=== PATIENT | female | born 1990 | race Two or more races ===

== ENCOUNTER 2020-02-26 11:09 | Outpatient (REF) | payer MEDICAID, SELFPAY | END 2020-02-26 11:10 | disposition home or self-care (01) | LOC: HO.LAB 11:09 | PROVIDERS: PCP Internal Medicine; Visit Provider Internal Medicine | DX: Z20.828 Contact with and (suspected) exposure to other viral communicable diseases (principal) | CPT/HCPCS: 87635 ==

== ENCOUNTER 2020-03-19 08:54 | Outpatient (REF) | payer MEDICAID, SELFPAY | END 2020-03-19 08:55 | disposition home or self-care (01) | LOC: HO.LAB 08:54 | PROVIDERS: Visit Provider Internal Medicine | DX: Z20.828 Contact with and (suspected) exposure to other viral communicable diseases (principal) | CPT/HCPCS: C9803; U0003 ==

== ENCOUNTER 2020-06-05 10:27 | Outpatient (REF) | payer MEDICAID, SELFPAY | END 2020-06-05 10:28 | disposition home or self-care (01) | LOC: HO.LAB 10:27 | PROVIDERS: PCP Internal Medicine; Visit Provider Internal Medicine | DX: Z20.822 Contact with and (suspected) exposure to COVID-19 (principal) | CPT/HCPCS: 36415; C9803; U0003 ==

== ENCOUNTER 2020-06-09 09:17 | Outpatient (REF) | payer MEDICAID, SELFPAY | END 2020-06-09 09:18 | disposition home or self-care (01) | LOC: HO.LAB 09:17 | PROVIDERS: PCP Internal Medicine; Visit Provider Internal Medicine | DX: Z20.822 Contact with and (suspected) exposure to COVID-19 (principal) | CPT/HCPCS: 36415; C9803; U0003; U0005 ==

== ENCOUNTER 2020-08-18 11:55 | Outpatient (REF) | payer MEDICAID, SELFPAY ==
[2020-08-18 13:00] LABS: COVID-19 Test Negative (Negative)
== END 2020-08-18 11:56 | disposition home or self-care (01) ==
LOC: HO.LAB 11:55
PROVIDERS: Visit Provider Internal Medicine
DX: Z20.822 Contact with and (suspected) exposure to COVID-19 (principal)
CPT/HCPCS: 36415; 87635; C9803

== ENCOUNTER 2020-08-21 13:34 | Outpatient (REF) | payer MEDICAID, SELFPAY | END 2020-08-21 13:35 | disposition home or self-care (01) | LOC: HO.LAB 13:34 | PROVIDERS: Visit Provider Internal Medicine | DX: Z20.822 Contact with and (suspected) exposure to COVID-19 (principal) | CPT/HCPCS: C9803; U0003; U0005 ==

== ENCOUNTER 2020-08-27 08:01 | Outpatient (REF) | payer MEDICAID, SELFPAY ==
[2020-08-27 08:20] LABS: COVID-19 Test Negative (Negative)
== END 2020-08-27 08:02 | disposition home or self-care (01) ==
LOC: HO.LAB 08:01
PROVIDERS: Visit Provider Internal Medicine
DX: Z20.822 Contact with and (suspected) exposure to COVID-19 (principal)
CPT/HCPCS: 36415; 87635; C9803

== ENCOUNTER 2020-09-18 08:13 | Outpatient (REF) | payer MEDICAID, SELFPAY ==
[2020-09-18 13:59] LABS: CT PCR NOT DETECTED (Not Detect.); NG PCR NOT DETECTED (Not Detect.)
[2020-09-24 07:32] LABS: HPV 16 RNA NOT DETECTED (NOT DETECTED); HPV mRNA E6/E7 rflx Detected (Not Detected)
== END 2020-09-18 08:14 | disposition home or self-care (01) ==
LOC: HO.LAB 08:13
PROVIDERS: PCP Internal Medicine; Visit Provider Advanced Practice Midwife
DX: Z01.419 Encounter for gynecological examination (general) (routine) without abnormal findings (principal); Z11.51 Encounter for screening for human papillomavirus (HPV); N94.3 Premenstrual tension syndrome; Z20.2 Contact with and (suspected) exposure to infections with a predominantly sexual mode of transmission; Z80.3 Family history of malignant neoplasm of breast
CPT/HCPCS: 87491; 87591; 87624; 87625; 88142

== ENCOUNTER 2020-10-21 03:57 | Emergency (ER) | payer MEDICAID, SELFPAY ==
--- NOTE | ~2020-10-21 | XR_ITS ---
EXAMINATION: XR CHEST CLINICAL INFORMATION: Lump in left clavicular area. COMPARISON: None TECHNIQUE: Frontal view of the chest was obtained. FINDINGS: No significant abnormality is noted involving the heart, lungs, mediastinum, bony thorax or soft tissues. XR/XR chest 1V IMPRESSION: Unremarkable examination.
[2020-10-21 05:46] VITALS: BP 133/60; PULSE 60; RESP 16; TEMP 36.2; O2SAT 99; BMI 34.3
--- NOTE | 2020-10-21 06:13 | ED_ITS ---
HPI - General Adult General Chief complaint: General Medical Stated complaint: lump on left side of neck Time Seen by Provider: 10/21/20 06:12 Source: patient Mode of arrival: ambulatory Limitations: no limitations History of Present Illness HPI narrative: Patient comes emergency room complaining of a supraclavicular lymph node. Patient states she has had her 2nd COVID vaccine yesterday. Patient noticed at 03:00 that she had a painful noted above her left clavicle. Patient denies fever chills. Patient took ibuprofen yesterday at 17:00. Related Data Home Medications Medication Instructions Recorded Confirmed omeprazole 20 mg tablet,delayed 20 mg PO DAILY 09/18/20 release Previous Rx's Medication Instructions Recorded ibuprofen 600 mg PO Q6H PRN #14 tab 10/21/20 Allergies Allergy/AdvReac Type Severity Reaction Status Date / Time No Known Allergies Allergy Unverified 01/23/20 17:58 seasonal allergies Allergy Unknown Uncoded 01/03/20 00:00 Review of Systems Review of Systems: Constitutional : No Weight loss, No Fever, No Chills, No Night Sweats, No Fatigue, No Malaise ENT/Mouth : No Hearing loss, No Ear Pain, No Nasal Congestion, No Sinus Pain, No Hoarseness, No sore throat, No Rhinorrhea, No Swallowing Difficulty Eyes: No Eye Pain, No Swelling, No Redness, No Foreign Body, No Discharge, No Vision Changes Cardiovascular : No Chest Pain, No SOB, No Dyspnea on Exertion, No Orthopnea, No Edema, No Palpitations Respiratory : No Cough, No Sputum, No Wheezing, No Smoke Exposure, No Dyspnea Gastrointestinal : No Nausea, No Vomiting, No Diarrhea, No Constipation, No abdominal Pain, No Hematochezia, No Melena Genitourinary : no irregular bleeding, No Dysuria, No Urinary Frequency, No Hematuria, No Urinary Incontinence, No Urgency, No Flank Pain, No Urinary Flow Changes, No Hesitancy Musculoskeletal : No joint pain, No Myalgias, No Joint Swelling Skin : No Skin Lesions, No rash Neuro : No Weakness, No Numbness, No Paresthesias, No Loss of Consciousness, No Dizziness, No Headache Psych : No Anxiety/Panic, No Depression, No SI/HI/AH/VH, No Social Issues, Heme/Lymph: No Bruising, No Bleeding, supraclavicular lymphadenopathy on the left side Endocrine : No Polyuria, No Polydipsia, No Temperature Intolerance [facility] Past Medical History Medical History Acid reflux Anxiety Asthma Depression Family History Family History Mother Breast cancer Maternal Aunt Breast cancer Maternal Grandmother Breast cancer Social History Social History Alcohol intake: current Alcohol intake frequency: holidays/special occasions only Substance Use Type: Marijuana Advance Directives: No Advance Directives Information Provided: No Patient : No Gender identity: female Physical Exam Vital Signs: Vital Signs: Last Vital Signs Temp 97.2 F 10/21/20 05:46 Pulse 60 10/21/20 05:46 Resp 16 10/21/20 05:46 BP 133/60 10/21/20 05:46 Pulse Ox 99 10/21/20 05:46 Body Mass Index 34.3 Appearance: Alert. Oriented X3. No acute distress. Eyes: Pupils equal, round and reactive to light. ENT: Pharynx normal. Palpable lymph nodes in the left supraclavicular area, painful to touch, movable Neck: Normal inspection. Neck supple. No lymph nodes noted. No crepitus CVS: Normal heart rate and rhythm. Pulses normal. Normal S1 and S2 Respiratory: No respiratory distress. Breath sounds normal. No Wheezing. No rales . Abdomen: Soft and nontender. No rigidity. No distention. good BS x4 Skin: Skin warm and dry. Normal skin color. Normal skin turgor. Extremities: No lower extremity edema. No lower extremity edema. No Lacerations. No Rash Neuro: Oriented X 3. No motor deficit. No sensory deficit. Moving all ext ermities. No slurred speech. Course Course Course Narrative: Patient developed left supraclavicular lymph node swelling after her immunization, likely secondary to the COVID shot. Patient given ibuprofen. Chest x-ray within normal limits Medical Decision Making Imaging Data Chest x-ray: Radiologist's impression: No significant abnormality is noted involving the heart, lungs, mediastinum, bony thorax or soft tissues. XR/XR chest 1V IMPRESSION: Unremarkable examination. Discharge Plan Discharge Clinical Impression: Lymphadenopathy, supraclavicular Patient Disposition: Home, Self-Care Instructions: Lymphadenopathy (ED) Additional Instructions: Please follow-up with your primary care physician tomorrow. If you have any worsening or new symptoms, please return to the emergency room or call 911 Prescriptions: New ibuprofen 600 mg tablet 600 mg PO Q6H PRN (Reason: fever or pain) Qty: 14 RF: 0 No Action omeprazole 20 mg tablet,delayed release (DR/EC) 20 mg PO DAILY RF: 0
[2020-10-21] MEDS: Ibuprofen 600 MG TABLET PO (06:37)
--- NOTE | 2020-10-21 06:38 | PC.NURSE ---
Pt medicated per MAR, resting in bed at this time.
--- NOTE | 2020-10-21 07:21 | PC.NURSE ---
discharge instruction given to pt who verbalized understanding and denies any questions. pt is amb to exit in no distress
== END 2020-10-21 07:22 | disposition home or self-care (01) ==
PROVIDERS: Emergency Provider Emergency Medicine; PCP Internal Medicine
DX: R59.0 Localized enlarged lymph nodes (principal)
CPT/HCPCS: 71045; 99283

== ENCOUNTER 2020-11-17 22:53 | Emergency (ER) | payer MEDICAID, SELFPAY ==
--- NOTE | ~2020-11-17 | CT_ITS ---
EXAMINATION: CT ABDOMEN AND PELVIS WITH CONTRAST CLINICAL INFORMATION: Left upper and lower quadrant pain COMPARISON: 12/30/2009 TECHNIQUE: Multidetector volumetric images were obtained from the superior aspect of the liver through the pubic symphysis following administration 85 mL of Omnipaque 350 intravenous contrast. Sagittal and coronal reformatted images were obtained on the technologist's workstation. Oral contrast: No This CT examination was performed using dose optimization techniques as appropriate, variously including the following: *Automated exposure control *Adjustment of mA and/or kV according to patient size (this includes techniques or standardized protocols for targeted exams where dose is matched to indication/reason for exam; i.e. extremities or head) *Use of iterative reconstruction technique DLP: 779 mGy-cm FINDINGS: LUNG BASES: The visualized lung bases are unremarkable. LIVER, GALLBLADDER, AND BILIARY TREE: The liver is normal in size, shape, and attenuation. No focal hepatic lesion or biliary ductal dilatation is present. Soft tissue density is noted within the gallbladder lumen. PANCREAS: Unremarkable. SPLEEN: Unremarkable. ADRENAL GLANDS: Unremarkable. KIDNEYS AND URETERS: There is a proximal left ureteral calculus measuring 5 mm with mild to moderate hydronephrosis and a delayed nephrogram. Additional mid and lower pole left renal calculi are noted measuring up to 3 mm. No right-sided hydronephrosis or obstructing calculus. BLADDER: Minimally distended and grossly unremarkable. GASTROINTESTINAL TRACT: The small and large bowel are unremarkable. The appendix is unremarkable. No free air is seen. ABDOMINAL WALL: No significant hernia is appreciated. LYMPH NODES: Normal. VASCULAR: Unremarkable. PELVIC VISCERA: Unremarkable. Trace free fluid is noted. OSSEOUS STRUCTURES: Unremarkable. CT/CT abdomen pelvis w con IMPRESSION: 1. Proximal left ureteral calculus measuring 5 mm with mild to moderate hydronephrosis. 2. Additional left renal calculi measuring up to 3 mm. 3. Soft tissue density in the gallbladder lumen, which could reflect gallstone versus polyp/mass. Further assessment with ultrasound is recommended. 4. Trace nonspecific pelvic free fluid, which may be physiologic.
[2020-11-17 22:56] VITALS: BP 131/76; PULSE 86; RESP 18; TEMP 37.1; O2SAT 98; BMI 33.9
[2020-11-17 23:23] LABS: UPreg QC Valid YES; Urine Pregnancy NEGATIVE (NEGATIVE)
[2020-11-17 23:24] LABS: Appearance Urine CLEAR; Color Urine YELLOW; Glucose Urine UA NEG (NEG); Leukocyte Esterase Urine 1+ (NEG); Nitrite Urine NEG (NEG); Specific Gravity - Urine 1.025 (1.005-1.025); UACC Culture Trigger YES; Urine Blood TRACE (NEG); Urine Ketones 15 MG/DL (NEG); Urine Protein NEG (NEG-TRACE)
[2020-11-17 23:34] LABS: Bacteria Urine 2+ /LPF; Squamous Epithelial Cell Urine 3+ /LPF
--- NOTE | 2020-11-18 01:18 | ED_ITS ---
HPI - Abdominal Pain General Chief Complaint: Abdominal Pain Stated Complaint: abd pain, vomitting Time Seen by Provider: 11/18/20 01:04 Source: patient Mode of arrival: ambulatory Limitations: no limitations History of Present Illness HPI narrative: Patient comes emergency room complaining of left-sided abdominal pain both upper and lower quadrant. Patient complaining of nausea and vomiting, no diarrhea. Patient has history of gastritis but states the pain that she is feeling at this moment is very different. Patient denies fever chills Related Data Home Medications Medication Instructions Recorded Confirmed omeprazole 20 mg tablet,delayed 20 mg PO DAILY 09/18/20 release Previous Rx's Medication Instructions Recorded ibuprofen 600 mg PO Q6H PRN #14 tab 10/21/20 ketorolac 10 mg PO TID PRN 5 Days #10 tab 11/18/20 levofloxacin 500 mg PO DAILY #9 tab 11/18/20 ondansetron HCl [Zofran] 4 mg PO Q6H PRN #14 tab 11/18/20 prednisone 20 mg PO DAILY #5 tab 11/18/20 tamsulosin 0.4 mg PO DAILY #10 cap 11/18/20 Allergies Allergy/AdvReac Type Severity Reaction Status Date / Time No Known Allergies Allergy Unverified 01/23/20 17:58 seasonal allergies Allergy Unknown Uncoded 01/03/20 00:00 Review of Systems Review of Systems Constitutional : No Weight loss, No Fever, No Chills, No Night Sweats, No Fatigue, No Malaise ENT/Mouth : No Hearing loss, No Ear Pain, No Nasal Congestion, No Sinus Pain, No Hoarseness, No sore throat, No Rhinorrhea, No Swallowing Difficulty Eyes: No Eye Pain, No Swelling, No Redness, No Foreign Body, No Discharge, No Vision Changes Cardiovascular : No Chest Pain, No SOB, No Dyspnea on Exertion, No Orthopnea, No Edema, No Palpitations Respiratory : No Cough, No Sputum, No Wheezing, No Smoke Exposure, No Dyspnea Gastrointestinal : Complaining of nausea and vomiting, No Diarrhea, No Constipation, complaining left abdominal pain upper and lower quadrants, No Hematochezia, No Melena Genitourinary : no irregular bleeding, No Dysuria, No Urinary Frequency, No Hematuria, No Urinary Incontinence, No Urgency, No Flank Pain, No Urinary Flow Changes, No Hesitancy Musculoskeletal : No joint pain, No Myalgias, No Joint Swelling Skin : No Skin Lesions, No rash Neuro : No Weakness, No Numbness, No Paresthesias, No Loss of Consciousness, No Dizziness, No Headache Psych : No Anxiety/Panic, No Depression, No SI/HI/AH/VH, No Social Issues, Heme/Lymph: No Bruising, No Bleeding,No Lymphadenopathy Endocrine : No Polyuria, No Polydipsia, No Temperature Intolerance Physical Exam Vital Signs: Vital Signs: Last Vital Signs Temp 98.7 F 11/17/20 22:56 Pulse 63 11/18/20 02:40 Resp 18 11/18/20 02:40 BP 130/78 11/18/20 02:40 Pulse Ox 98 11/18/20 02:40 Body Mass Index 33.9 Appearance: Alert. Oriented X3. No acute distress. Eyes: Pupils equal, round and reactive to light. ENT: Pharynx normal. Neck: Normal inspection. Neck supple. No lymph nodes noted. No crepitus CVS: Normal heart rate and rhythm. Pulses normal. Normal S1 and S2 Respiratory: No respiratory distress. Breath sounds normal. No Wheezing. No rales Abdomen: Soft , tender to palpation in the left lower quadrant, mild pain/discomfort in the right and left upper quadrant, No rigidity. No distention. Skin: Skin warm and dry. Normal skin color. Normal skin turgor. Extremities: No lower extremity edema. No Lacerations. No Rash Neuro: Oriented X 3. No motor deficit. No sensory deficit. Moving all exter mities. No slurred speech. Course Course Course Narrative: Patient is still complaining of significant pain and nausea. Patient has ureterolithiasis. Patient received initially morphine, did not help much for pain, patient received a dose of Toradol which resolve the pain. I discussed with the patient that she needs to follow up with Urology. One dose of IV levofloxacin was given in the emergency room due to p.o. intolerance. At this time, patient drinking fluids, tolerating p.o. as mentioned above, the pain resolved At this time, sepsis is not suspected. MDM - Abdominal Pain Lab Data Result diagrams: 11/18/20 01:25 11/18/20 01:25 Labs: Lab Results 11/17/20 11/17/20 11/18/20 Range/Units 23:08 23:08 01:25 WBC 13.5 H (4.8-10.8) X10*3/uL RBC 4.49 (4.20-5.50) X10*6/uL Hgb 13.2 (12.0-16.0) g/dl Hct 39.3 (37-47) % MCV 87.5 (80-98) fL MCH 29.4 (27.0-33.0) pg MCHC 33.6 (31.0-35.0) g/dl RDW 13.1 (11.0-16.0) % Plt Count 227 (160-400) X10*3/uL MPV 10.5 (9.4-12.3) fL Immature Gran % (Auto) 0.3 (0.0-0.4) % Neut % (Auto) 76.3 H (45-73) % Lymph % (Auto) 15.7 L (20-40) % Mccormick % (Auto) 6.2 (2-11) % Eos % (Auto) 1.3 (0-4) % Baso % (Auto) 0.2 (0-2) % Lymph # (Auto) 2.1 (1.2-4.9) X10*3/uL Mccormick # (Auto) 0.8 (0.1-1.2) X10*3/uL Eos # (Auto) 0.2 (0.0-0.4) X10*3/uL Baso # (Auto) 0.0 (0.0-0.2) X10*3/uL Abs Immat Gran (auto) 0.04 H (0.00-0.03) X10*3/uL Absolute Neuts (auto) 10.3 H (2.0-8.3) X10*3/uL Absolute Nucleated RBC 0.000 (0.0-0.012) X10*3/uL Nucleated RBC % (auto) 0.0 (0.0-0.2) /100WBC Sodium (135-145) mmol/L Potassium (3.3-5.1) mmol/L Chloride (96-108) mmol/L Carbon Dioxide (22-29) mmol/L Anion Gap (12-20) BUN (9-16) mg/dL Creatinine (0.5-1.4) mg/dL Estim Creat Clear Calc Estimated GFR Random Glucose (60-115) mg/dL Calcium (8.4-10.2) mg/dL Total Bilirubin (0.0-1.0) mg/dL Direct Bilirubin (0.0-0.5) mg/dL AST (5-31) U/L ALT (0-31) U/L Alkaline Phosphatase (39-117) U/L Total Protein (6.5-8.0) g/dL Albumin (3.5-5.0) g/dL Lipase (8-78) U/L Urine Color YELLOW Urine Appearance CLEAR Urine pH 6.0 (5.0-8.0) Ur Specific [place] 1.025 (1.005-1.025) Urine Protein NEG (NEG-TRACE) MG/DL Urine Glucose (UA) NEG (NEG) MG/DL Urine Ketones 15 (NEG) MG/DL Urine Blood TRACE (NEG) Urine Nitrite NEG (NEG) Ur Leukocyte Esterase 1+ H (NEG) Urine RBC 1-4 (0) /HPF Urine WBC 5-9 H (0-4) /HPF Ur Squamous Epith Cells 3+ /LPF Urine Bacteria 2+ /LPF Urine Test NEGATIVE (NEGATIVE) 11/18/20 Range/Units 01:25 WBC (4.8-10.8) X10*3/uL RBC (4.20-5.50) X10*6/uL Hgb (12.0-16.0) g/dl Hct (37-47) % MCV (80-98) fL MCH (27.0-33.0) pg MCHC (31.0-35.0) g/dl RDW (11.0-16.0) % Plt Count (160-400) X10*3/uL MPV (9.4-12.3) fL Immature Gran % (Auto) (0.0-0.4) % Neut % (Auto) (45-73) % Lymph % (Auto) (20-40) % Mccormick % (Auto) (2-11) % Eos % (Auto) (0-4) % Baso % (Auto) (0-2) % Lymph # (Auto) (1.2-4.9) X10*3/uL Mccormick # (Auto) (0.1-1.2) X10*3/uL Eos # (Auto) (0.0-0.4) X10*3/uL Baso # (Auto) (0.0-0.2) X10*3/uL Abs Immat Gran (auto) (0.00-0.03) X10*3/uL Absolute Neuts (auto) (2.0-8.3) X10*3/uL Absolute Nucleated RBC (0.0-0.012) X10*3/uL Nucleated RBC % (auto) (0.0-0.2) /100WBC Sodium 137 (135-145) mmol/L Potassium 4.0 (3.3-5.1) mmol/L Chloride 105 (96-108) mmol/L Carbon Dioxide 24 (22-29) mmol/L Anion Gap 12 (12-20) BUN 12 (9-16) mg/dL Creatinine 1.13 (0.5-1.4) mg/dL Estim Creat Clear Calc 86.2 Estimated GFR 57 Random Glucose 109 (60-115) mg/dL Calcium 9.4 (8.4-10.2) mg/dL Total Bilirubin 1.1 H (0.0-1.0) mg/dL Direct Bilirubin 0.4 (0.0-0.5) mg/dL AST 16 (5-31) U/L ALT 12 (0-31) U/L Alkaline Phosphatase 86 (39-117) U/L Total Protein 6.9 (6.5-8.0) g/dL Albumin 4.4 (3.5-5.0) g/dL Lipase 15 (8-78) U/L Urine Color Urine Appearance Urine pH (5.0-8.0) Ur Specific [place] (1.005-1.025) Urine Protein (NEG-TRACE) MG/DL Urine Glucose (UA) (NEG) MG/DL Urine Ketones (NEG) MG/DL Urine Blood (NEG) Urine Nitrite (NEG) Ur Leukocyte Esterase (NEG) Urine RBC (0) /HPF Urine WBC (0-4) /HPF Ur Squamous Epith Cells /LPF Urine Bacteria /LPF Urine Test (NEGATIVE) Imaging Data CT scan - abdomen: Radiologist's impression: [address] [id number] Scan ReportSigned Patient: Linda HammerMR#: [id number]: [id number]:[id number]/Sex: 30 / FADM Date: 11/18/20Loc: [address] Dr: Ordering Physician: SHAGUFTA VELEZ MD Date of Service: 11/18/20 Procedure(s): CT abdomen pelvis w con Accession Number(s): [id number] cc: SHAGUFTA VELEZ MD~ EXAMINATION: CT ABDOMEN AND PELVIS WITH CONTRAST CLINICAL INFORMATION: Left upper and lower quadrant pain COMPARISON: 12/30/2009 TECHNIQUE: Multidetector volumetric images were obtained from the superior aspect of the liver through the pubic symphysis following administration 85 mL of Omnipaque 350 intravenous contrast. Sagittal and coronal reformatted images were obtained on the technologist's workstation. Oral contrast: No This CT examination was performed using dose optimization techniques as appropriate, variously including the following: *Automated exposure control *Adjustment of mA and/or kV according to patient size (this includes techniques or standardized protocols for targeted exams where dose is matched to indication/reason for exam; i.e. extremities or head) *Use of iterative reconstruction technique DLP: 779 mGy-cm FINDINGS: LUNG BASES: The visualized lung bases are unremarkable. LIVER, GALLBLADDER, AND BILIARY TREE: The liver is normal in size, shape, and attenuation. No focal hepatic lesion or biliary ductal dilatation is present. Soft tissue density is noted within the gallbladder lumen. PANCREAS: Unremarkable. SPLEEN: Unremarkable. ADRENAL GLANDS: Unremarkable. KIDNEYS AND URETERS: There is a proximal left ureteral calculus measuring 5 mm with mild to moderate hydronephrosis and a delayed nephrogram. Additional mid and lower pole left renal calculi are noted measuring up to 3 mm. No right-sided hydronephrosis or obstructing calculus. BLADDER: Minimally distended and grossly unremarkable. GASTROINTESTINAL TRACT: The small and large bowel are unremarkable. The appendix is unremarkable. No free air is seen. ABDOMINAL WALL: No significant hernia is appreciated. LYMPH NODES: Normal. VASCULAR: Unremarkable. PELVIC VISCERA: Unremarkable. Trace free fluid is noted. OSSEOUS STRUCTURES: Unremarkable. CT/CT abdomen pelvis w con IMPRESSION: 1. Proximal left ureteral calculus measuring 5 mm with mild to moderate hydronephrosis. 2. Additional left renal calculi measuring up to 3 mm. 3. Soft tissue density in the gallbladder lumen, which could reflect gallstone versus polyp/mass. Further assessment with ultrasound is recommended. 4. Trace nonspecific pelvic free fluid, which may be physiologic. Discharge Plan Discharge Clinical Impression: Ureterolithiasis UTI (urinary tract infection) Qualifiers: Urinary tract infection type: site unspecified Hematuria presence: without hematuria Qualified Code(s): N39.0 - Urinary tract infection, site not specified Patient Disposition: Home, Self-Care Instructions: Urinary Tract Infection in Women (ED), Flank Pain (ED) Additional Instructions: Please follow-up with your primary care physician tomorrow. If you have any worsening or new symptoms, please return to the emergency room or call 911 Prescriptions: New prednisone 20 mg tablet 20 mg PO DAILY Qty: 5 RF: 0 ketorolac 10 mg tablet 10 mg PO TID PRN (Reason: pain) 5 Days Qty: 10 RF: 0 ondansetron HCl [Zofran] 4 mg tablet 4 mg PO Q6H PRN (Reason: nausea and vomiting) Qty: 14 RF: 0 tamsulosin 0.4 mg capsule 0.4 mg PO DAILY Qty: 10 RF: 0 levofloxacin 500 mg tablet 500 mg PO DAILY Qty: 9 RF: 0 No Action ibuprofen 600 mg tablet 600 mg PO Q6H PRN (Reason: fever or pain) Qty: 14 RF: 0 omeprazole 20 mg tablet,delayed release (DR/EC) 20 mg PO DAILY RF: 0 Referrals: Flako Elias MD [Physician] - 2 days [facility] Past Medical History Medical History Acid reflux Anxiety Asthma Depression Family History Family History Mother Breast cancer Maternal Aunt Breast cancer Maternal Grandmother Breast cancer Social History Social History Alcohol intake: current Alcohol intake frequency: holidays/special occasions only Substance Use Type: Marijuana Advance Directives: No Patient : No Gender identity: female
[2020-11-18] MEDS: ondansetron HCL 4 MG/2 ML VIAL IVPUSH ×2 (01:26→03:20)
[2020-11-18] MEDS: Morphine Sulfate 4 MG/ML CARTRIDGE IVPUSH (01:26)
[2020-11-18] MEDS: 0.9 % Sodium Chloride 1,000 ML 999 ML IVCONT (01:26)
[2020-11-18 01:29] LABS: MANUAL DIFF FLAG NO
[2020-11-18 01:34] LABS: Basophils Percent Auto 0.2 % (0-2); Eosinophils Absolute Auto 0.2 X10*3/uL (0.0-0.4); Eosinophils Percent Auto 1.3 % (0-4); Hematocrit 39.3 % (37-47); Hemoglobin 13.2 g/dl (12.0-16.0); Imm Gran Abs Auto 0.04 X10*3/uL (0.00-0.03); Imm Gran Pct Auto 0.3 % (0.0-0.4); Lymphocytes Absolute Auto 2.1 X10*3/uL (1.2-4.9); Lymphocytes Percent Auto 15.7 % (20-40); Mean Corpuscular HGB Conc 33.6 g/dl (31.0-35.0); Mean Corpuscular Hemoglobin 29.4 pg (27.0-33.0); Mean Corpuscular Volume 87.5 fL (80-98); Mean Platelet Volume 10.5 fL (9.4-12.3); Monocytes Absolute Auto 0.8 X10*3/uL (0.1-1.2); Monocytes Percent Auto 6.2 % (2-11); Neutrophils Absolute Auto 10.3 X10*3/uL (2.0-8.3); Neutrophils Percent Auto 76.3 % (45-73); Platelet Count 227 X10*3/uL (160-400); Red Blood Count 4.49 X10*6/uL (4.20-5.50); Red Cell Distribution Width 13.1 % (11.0-16.0); White Blood Count 13.5 X10*3/uL (4.8-10.8)
[2020-11-18 01:52] LABS: Alanine Aminotransferase 12 U/L (0-31); Albumin Level 4.4 g/dL (3.5-5.0); Alkaline Phosphatase 86 U/L (39-117); Anion Gap 12 (12-20); Aspartate Amino Transferase 16 U/L (5-31); Bilirubin Direct 0.4 mg/dL (0.0-0.5); Bilirubin Total 1.1 mg/dL (0.0-1.0); Blood Urea Nitrogen 12 mg/dL (9-16); Calcium 9.4 mg/dL (8.4-10.2); Carbon Dioxide 24 mmol/L (22-29); Chloride 105 mmol/L (96-108); Creatinine Clr Calc Pharmacy 86.2; Estimated Glomerular Filt Rate 57; Glucose Random 109 mg/dL (60-115); Lipase 15 U/L (8-78); Sodium 137 mmol/L (135-145); Total Protein 6.9 g/dL (6.5-8.0)
[2020-11-18 02:31] VITALS: RESP 16
[2020-11-18 02:40] VITALS: BP 130/78; PULSE 63; RESP 18; O2SAT 98
[2020-11-18] MEDS: iohexoL 350 MG/ML 100 ML INFUS..BTL 85 ML IV (03:03)
[2020-11-18] MEDS: Ketorolac Tromethamine 30 MG/ML VIAL IVPUSH (04:07)
[2020-11-18] MEDS: Prochlorperazine Edisylate 10 MG/2 ML VIAL IVPUSH (04:09)
[2020-11-18] MEDS: Tamsulosin HCL 0.4 MG CAPSULE PO (04:13)
[2020-11-18] MEDS: levoFLOXacin/D5W 500 MG/100 ML PIGGYBACK 100 MG IV (04:38)
[2020-11-18 05:46] VITALS: RESP 16
== END 2020-11-18 05:48 | disposition home or self-care (01) ==
PROVIDERS: Emergency Provider Emergency Medicine; PCP Internal Medicine
DX: N20.1 Calculus of ureter (principal); N39.0 Urinary tract infection, site not specified; R10.32 Left lower quadrant pain; F12.90 Cannabis use, unspecified, uncomplicated; Z79.899 Other long term (current) drug therapy
CPT/HCPCS: 36415; 74177; 80048; 80076; 81001; 81003; 81025; 83690; 85025; 87086; 96365; 96375; 96376; 99284; J1885; J1956; J2270; J2405; Q9967

== ENCOUNTER → 2020-11-20 11:38 | Outpatient (BNVA) | payer MEDICAID, SELFPAY | PROVIDERS: PCP Internal Medicine ==

== ENCOUNTER → 2020-12-04 14:20 | Outpatient (BNVA) | payer MEDICAID, SELFPAY | PROVIDERS: PCP Internal Medicine | DX: N20.0 Calculus of kidney (principal) | CPT/HCPCS: 99212 ==

== ENCOUNTER → 2020-12-09 07:36 | Outpatient (BNVA) | payer MEDICAID, SELFPAY | PROVIDERS: PCP Internal Medicine; Visit Provider Physician Assistant ==

== ENCOUNTER 2020-12-24 16:22 | Outpatient (REF) | payer MEDICAID, SELFPAY ==
--- NOTE | ~2020-12-24 | US_ITS ---
EXAMINATION: US RETROPERITONEAL LIMITED (RENAL ONLY) CLINICAL INFORMATION: Calculus of kidney. COMPARISON: CT abdomen and pelvis with contrast dated 11/18/2020. TECHNIQUE: Real-time imaging of the kidneys. FINDINGS: RIGHT KIDNEY: 9.9 x 4.0 x 5.2 cm (SAG x AP x TRV). The kidney is normal in size, contour, and echogenicity. Renal cortical thickness is normal. No calculi or focal parenchymal lesions. No hydronephrosis. LEFT KIDNEY: 10.7 x 5.1 x 5.6 cm (SAG x AP x TRV). The kidney is normal in size, contour, and echogenicity. Renal cortical thickness is normal. No calculi or focal parenchymal lesions. No hydronephrosis. US/US renal BI IMPRESSION: No stones or obstructive uropathy..
== END 2020-12-24 16:23 | disposition home or self-care (01) ==
LOC: HO.US 16:22
DX: N20.0 Calculus of kidney (principal)
CPT/HCPCS: 76775

== ENCOUNTER → 2021-01-05 10:44 | Outpatient (BNVA) | payer MEDICAID, SELFPAY | PROVIDERS: PCP Internal Medicine | DX: N20.0 Calculus of kidney (principal); J30.2 Other seasonal allergic rhinitis | CPT/HCPCS: 99212 ==

== ENCOUNTER 2021-01-28 09:17 | Day surgery (SDC) | payer MEDICAID, SELFPAY ==
[2021-01-22 12:38] VITALS: BMI 34.7
--- NOTE | 2021-01-27 10:04 | HO.ANESPROP2 ---
Documented by User: Bri Kasper NP 01/27/21 10:05 HPI - Anesthesia Eval Consult details Narrative: 30yo F for Upper Endoscopy PMFSH Active Problems Active Problems: All Active Problems (Updated 12/09/20 @ 08:09 by Celeste Durbin PA-C) Family history of breast cancer in first degree relative (Acute) Renal calculi (Acute) Acid reflux (Acute) Constipation due to pain medication (Acute) Past Medical History Medical History Acid reflux Anxiety Asthma Depression Family History Family History Mother Breast cancer Maternal Aunt Breast cancer Maternal Grandmother Breast cancer Surgical History Surgical History Hx of hand surgery Social History Social History Household Members Other:: single 1 child Are you a primary resident care supervisor to a significant other at home: No Do you presently have visiting nurse or other home services: No Alcohol intake: current Alcohol intake frequency: holidays/special occasions only Patient Tobacco Use Status: Never used Tobacco Use of substances other than those prescribed or required for medical reasons: Yes Substance Use Type: Marijuana Substance Use Frequency: Weekly Have you been hit, kicked, punched, or otherwise hurt by someone within the past year? If so, by whom?: No Are you DNR?: No Advance Directives: No Advance Directives Information Provided: No Advance Directives on File: No Recently lost weight without trying: No Eating poorly because of decreased appetite: No Nutrition Risks: No Nutritional Risk Patient : No FDLMP: 01/17/21 : No Current occupational status: employed Gender identity: Female Meds Allergies Allergy/AdvReac Type Severity Reaction Status Date / Time No Known Allergies Allergy Verified 01/22/21 12: seasonal allergies Allergy Unknown n/a Uncoded 01/22/21 12:21 Home Medications Medication Instructions Recorded Confirmed Last Taken Type omeprazole 20 mg tablet,delayed 20 mg PO DAILY 09/18/20 01/22/21 Unknown History release hydroxyzine HCl 50 mg tablet 50 mg PO BEDTIME 12/09/20 01/22/21 Unknown History loratadine 10 mg tablet 10 mg PO DAILY PRN 01/05/21 01/22/21 Unknown History mirtazapine 15 mg tablet 15 mg PO BEDTIME 01/05/21 01/22/21 Unknown History pyridoxine (vitamin B6) 100 mg 100 mg PO DAILY 01/05/21 01/22/21 Unknown History tablet albuterol sulfate 90 mcg/actuation 2 puff PO Q4-6H PRN 01/22/21 01/22/21 Unknown History aerosol inhaler (ProAir HFA) clonidine HCl 0.2 mg tablet 1 tab PO BEDTIME 01/22/21 01/22/21 Unknown History duloxetine 60 mg capsule,delayed 1 cap PO DAILY 01/22/21 01/22/21 Unknown History release Exam Exam Date and Time: January 27, 2021 1004 Height,Weight and Vital Signs: Height 5 ft 6 in Weight 97.522 kg Pertinent Lab Results Pertinent Lab Results: Laboratory Tests 11/18/20 11/18/20 01:25 01:25 WBC 13.5 H Hgb 13.2 Hct 39.3 Plt Count 227 Sodium 137 Potassium 4.0 Chloride 105 Carbon Dioxide 24 BUN 12 Creatinine 1.13 Assessment and Plan Assessment Anesthesia Assessment: Chart Reviewed Documented by User: Elba Chapman MD 01/28/21 10:21 [facility] Active Problems Active Problems: All Active Problems (Updated 12/09/20 @ 08:09 by Celeste Durbin PA-C) Family history of breast cancer in first degree relative (Acute) Renal calculi (Acute) Acid reflux (Acute) Constipation due to pain medication (Acute) Asthma. Controlled. Inhalers prn Past Medical History Medical History Acid reflux Anxiety Asthma Depression Family History Family History Mother Breast cancer Maternal Aunt Breast cancer Maternal Grandmother Breast cancer Family history of problems with anesthesia: No Surgical History Surgical History Hx of hand surgery History of Problems with Anesthesia: No Social History Social History Household Members Other:: single 1 child Are you a primary resident care supervisor to a significant other at home: No Do you presently have visiting nurse or other home services: No Alcohol intake: current Alcohol intake frequency: holidays/special occasions only Patient Tobacco Use Status: Never used Tobacco Use of substances other than those prescribed or required for medical reasons: Yes Substance Use Type: Marijuana Substance Use Frequency: Weekly Have you been hit, kicked, punched, or otherwise hurt by someone within the past year? If so, by whom?: No Are you DNR?: No Advance Directives: No Advance Directives Information Provided: No Advance Directives on File: No Recently lost weight without trying: No Eating poorly because of decreased appetite: No Nutrition Risks: No Nutritional Risk Patient : No FDLMP: 01/17/21 : No Current occupational status: employed Gender identity: Female Meds Allergies Allergy/AdvReac Type Severity Reaction Status Date / Time No Known Allergies Allergy Verified 01/22/21 12:21 seasonal allergies Allergy Unknown n/a Uncoded 01/22/21 12:21 Home Medications Medication Instructions Recorded Confirmed Last Taken Type omeprazole 20 mg tablet,delayed 20 mg PO DAILY 09/18/20 01/22/21 Unknown History release hydroxyzine HCl 50 mg tablet 50 mg PO BEDTIME 12/09/20 01/22/21 Unknown History loratadine 10 mg tablet 10 mg PO DAILY PRN 01/05/21 01/22/21 Unknown History mirtazapine 15 mg tablet 15 mg PO BEDTIME 01/05/21 01/22/21 Unknown History pyridoxine (vitamin B6) 100 mg 100 mg PO DAILY 01/05/21 01/22/21 Unknown History tablet albuterol sulfate 90 mcg/actuation 2 puff PO Q4-6H PRN 01/22/21 01/22/21 Unknown History aerosol inhaler (ProAir HFA) clonidine HCl 0.2 mg tablet 1 tab PO BEDTIME 01/22/21 01/22/21 Unknown History duloxetine 60 mg capsule,delayed 1 cap PO DAILY 01/22/21 01/22/21 Unknown History release Exam Height,Weight and Vital Signs: Height 5 ft 6 in Weight 97.522 kg Vital Signs Temp Pulse Resp BP Pulse Ox 01/28/21 09:45 98.3 F 72 16 135/82 97 Pertinent Lab Results Pertinent Lab Results: Laboratory Tests 11/18/20 11/18/20 01:25 01:25 WBC 13.5 H Hgb 13.2 Hct 39.3 Plt Count 227 Sodium 137 Potassium 4.0 Chloride 105 Carbon Dioxide 24 BUN 12 Creatinine 1.13 Lab Results 01/28/21 Range/Units 09:25 Urine Test NEGATIVE (NEGATIVE) Airway Mallampati Class: I TM Dist: >3cm Neck ROM: Full Loose/Missing/Broken Teeth: No Heart: RRR Lungs: CTAB Assessment and Plan Assessment Anesthesia Assessment: Anesthesia Plan Discussed Final Anesthetic Review Family History of Problems with Anesthesia: No History of Problems with Anesthesia: No NPO: Yes ASA Class: II Final Preanesthetic Review: No Changes in Pt Med Stat, Meds/Allgs Chart Reviewed, Consent Obtained/Reviewed and Anes Risks/Benef Reviewed Patient Risk: Low Procedure Risk: Low Assessment/Block/Sedation in SS: Assess/Block/Sedation-SS Anesthetic Plan Anesthetic Plan: MAC: Disposition: Standard PACU
[2021-01-28 09:45] VITALS: BP 135/82; PULSE 72; RESP 16; TEMP 36.8; O2SAT 97
[2021-01-28 09:46] LABS: UPreg QC Valid YES; Urine Pregnancy NEGATIVE (NEGATIVE)
[2021-01-28] MEDS: Lactated Ringers 1,000 ML 100 ML IVCONT (09:50)
--- NOTE | 2021-01-28 10:35 | MHC.SHP ---
Pre-Procedural Eval Section A Date of Service: 01/28/21 Section B Chief Complaint: GERD Relevant Family History (Specify if Yes): No Relevant Social History: Other (specify) (THC use) Present Medications: see Short Stay Collaborative assessment Medical History: Significant History (Acid reflux Anxiety Asthma Depression) History of Previous Operations: Relevant previous surgery/procedure and date(s) (hand surgery) Allergies: Allergies Allergy/AdvReac Type Severity Reaction Status Date / Time No Known Allergies Allergy Verified 01/22/21 12:21 seasonal allergies Allergy Unknown n/a Uncoded 01/22/21 12:21 Review of Systems Sugical H&P ROS: Negative: Constitution, Cardiovascular, Respiratory, Neurological, Psychiatric, Hem-Onc, Allergic/Immunologic, Gastrointestinal, Genitourinary, Musculoskeletal, Integumentary, Endocrine and Eyes/Ears/Nose/Throat Exam Surgical H&P Exam: Normal: HEENT, Normal: Heart, Normal: Lungs, Normal: Extremities, Normal: Abdomen, Normal: Skin and Normal: Neurological Plan Diagnosis/Plan: Unchanged I have reviewed the history and physical and performed a pertinent physical examination on my patient. No changes have occurred unless specified.
--- NOTE | 2021-01-28 10:37 | P.BOP_ITS ---
Brief Operative Note Date of Service: 01/28/21 Pre-op diagnosis: epigastric pain Post-op diagnosis: same Procedure: see op note Surgeon: Beverly Nicole MD Anesthesia: MAC Was an Instructor Product Inspection used for this Procedure?: No Estimated blood loss (mL): 0 Condition: stable Disposition: PACU
--- NOTE | 2021-01-28 10:37 | W.PM.OPN ---
Operative Note Operative Note Date of Service: 01/28/21 Narrative: Procedure Description: EGD FLEXIBLE TRANSORAL UPPER GASTROINTESTINAL ENDOSCOPY UPPER ENDOSCOPY Consent: Indications for the procedure and potential complications of bleeding, perforation, reaction to medications and missed diagnosis were discussed with the patient and informed consent was obtained. Instrument: Olympus GIF H 190 J mid size upper endoscope Monitoring: Vital signs and clinical assessment, continuous EKG monitoring, Pulse oximetry, Carbon Dioxide monitoring and blood pressure monitoring were done throughout the procedure. Procedure: The patient was placed in the left lateral decubitis position and pre-procedure medications were administered and a bite block was placed. The endoscope was inserted into the mouth and advanced under direct vision to the third part of duodenum. A careful inspection was made as the upper endoscope was withdrawn including a retroflexed examination of the proximal stomach; Findings and interventions are described below. Findings: Larynx:normal Esophagus: GE junction at 38 cm, diaphragm hiatus at 40 cm, 2 cm sliding hiatal hernia noted with non obstructive schatzki ring Stomach: Normal mucosa. Biopsies were obtained. Grade 2 flap valve on retroflexed examination of the cardia. Duodenum: Normal bulb and descending duodenum, bx taken Intervention: Biopsies as noted above Impression/Findings: hiatal hernia schatzki ring PLAN: await results, if h pylori pos then treat lifestyle measures for GERD may have functional dyspepsia component to sx as well
[2021-01-28 11:09] VITALS: BP 111/60; PULSE 81; RESP 16; TEMP 36.8; O2SAT 100
[2021-01-28 11:24] VITALS: BP 130/84; PULSE 60; RESP 16; O2SAT 98
[2021-01-28 11:35] VITALS: BP 130/84; PULSE 74; RESP 7; TEMP 36.7; O2SAT 99
== END 2021-01-28 12:03 | disposition home or self-care (01) ==
PROVIDERS: Nurse Practitioner; PCP Internal Medicine; Visit Provider Internal Medicine Gastroenterology
PROC: 0DJ08ZZ Inspection of Upper Intestinal Tract, Via Natural or Artificial Opening Endoscopic (ICD-10-PCS; CPT 43235; principal; 2021-01-28 15:10)
DX: K21.9 Gastro-esophageal reflux disease without esophagitis (principal); K22.2 Esophageal obstruction; K44.9 Diaphragmatic hernia without obstruction or gangrene; Z79.899 Other long term (current) drug therapy
CPT/HCPCS: 43239; 81025; 88305; 88342; J2250

== ENCOUNTER 2021-04-07 08:10 | Outpatient (REF) | payer MEDICAID, SELFPAY ==
[2021-04-07 08:20] LABS: MANUAL DIFF FLAG NO
[2021-04-07 08:37] LABS: Basophils Percent Auto 0.2 % (0-2); Eosinophils Absolute Auto 0.1 X10*3/uL (0.0-0.4); Eosinophils Percent Auto 1.1 % (0-4); Hematocrit 41.8 % (37.0-47.0); Hemoglobin 13.7 g/dl (12.0-16.0); Imm Gran Abs Auto 0.05 X10*3/uL (0.00-0.03); Imm Gran Pct Auto 0.4 % (0.0-0.4); Lymphocytes Percent Auto 16.2 % (20-40); Mean Corpuscular HGB Conc 32.8 g/dl (31.0-35.0); Mean Corpuscular Hemoglobin 29.4 pg (27.0-33.0); Mean Corpuscular Volume 89.7 fL (80.0-98.0); Mean Platelet Volume 10.6 fL (9.4-12.3); Monocytes Absolute Auto 0.6 X10*3/uL (0.1-1.2); Monocytes Percent Auto 4.7 % (2-11); Neutrophils Absolute Auto 9.5 x10*3/uL (2.0-8.3); Neutrophils Percent Auto 77.4 % (45-73); Platelet Count 268 X10*3/uL (160-400); Red Blood Count 4.66 X10*6/uL (4.20-5.50); Red Cell Distribution Width 13.8 % (11.0-16.0); White Blood Count 12.3 X10*3/uL (4.8-10.8)
[2021-04-07 09:02] LABS: Alanine Aminotransferase 18 U/L (0-31); Albumin Level 4.5 g/dL (3.5-5.0); Alkaline Phosphatase 88 U/L (39-117); Anion Gap 10 (12-20); Aspartate Amino Transferase 17 U/L (5-31); Blood Urea Nitrogen 14 mg/dL (9-16); C Reactive Protein 0.87 mg/dL (< or = 0.50); Calcium 9.4 mg/dL (8.4-10.2); Carbon Dioxide 28 mmol/L (22-29); Chloride 108 mmol/L (96-108); Estimated Glomerular Filt Rate > 60; Glucose Random 117 mg/dL (60-115); Potassium 3.8 mmol/L (3.3-5.1); Sodium 142 mmol/L (135-145); Total Protein 7.2 g/dL (6.5-8.0)
[2021-04-07 09:11] LABS: HCG Quantitative < 2 mIU/mL
[2021-04-07 09:21] LABS: Erythrocyte Sedimentation Rate 7 MM/HR (0-20)
[2021-04-07 09:28] LABS: Appearance Urine HAZY; Color Urine YELLOW; Glucose Urine UA NEG (NEG); Leukocyte Esterase Urine 2+ (NEG); Nitrite Urine NEG (NEG); Specific Gravity - Urine 1.025 (1.005-1.025); UACC Culture Trigger YES; Urine Blood TRACE (NEG); Urine Ketones NEG (NEG); Urine Protein 1+ MG/DL (NEG-TRACE)
[2021-04-07 09:50] LABS: RBC Urine 0 /HPF (0); Squamous Epithelial Cell Urine 2+ /LPF
[2021-04-07 09:51] LABS: Bacteria Urine 1+ /LPF; Mucus Urine 1+ /LPF
== END 2021-04-07 08:11 | disposition home or self-care (01) ==
LOC: HO.LAB 08:10
PROVIDERS: Visit Provider Internal Medicine Gastroenterology
DX: R10.11 Right upper quadrant pain (principal); K75.81 Nonalcoholic steatohepatitis (NASH)
CPT/HCPCS: 36415; 80053; 81001; 81003; 84702; 85025; 85652; 86140; 87086

== ENCOUNTER 2021-05-27 09:24 | Outpatient (REF) | payer MEDICAID, SELFPAY ==
--- NOTE | ~2021-05-27 | US_ITS ---
EXAMINATION: US COMPLETE ABDOMEN WITH LIVER ELASTOGRAPHY CLINICAL INFORMATION: Right upper quadrant pain COMPARISON: Previous CT of the abdomen and pelvis November 2020 TECHNIQUE: Real-time imaging of the abdominal viscera. Noninvasive ultrasound liver fibrosis assessment is performed using Ladonna ElastPQ point quantification shear wave elastography (2D-SWE) with a C5-2 MHz transducer. Multiple elastography samples are obtained. FINDINGS: PANCREAS: The visualized pancreatic head and body are normal in appearance. The remainder of the pancreas is obscured from visualization by the overlying bowel gas. ABDOMINAL AORTA: The proximal, middle, and distal aortic segments are normal in caliber. INFERIOR VENA CAVA: Visualized portions are normal. LIVER: Normal. The liver demonstrates normal size, contour and echogenicity. No focal lesion or intrahepatic biliary duct dilatation. The right lobe measures 14 cm in length. The left lobe measures 10 cm in length. Portal flow is normal/hepatopedal Shear wave liver elastography median stiffness is 1.2 m/s (reference: normal median stiffness is 1.3 m/s or less). IQR/median stiffness to assess sampling precision is 0.16 (reference: good quality data set is IQR/median stiffness of 0.15 or less). GALLBLADDER: There is a 2 x 1.2 x 1.3 cm lesion adjacent to the gallbladder wall worrisome for a mass. This demonstrates minimal vascularity. This is not appear appreciably changed in size from previous CT scan November 2020. No gallstones are seen. The gallbladder wall does not appear thickened. COMMON BILE DUCT: Normal in caliber measuring 0.6 cm in diameter. RIGHT KIDNEY: Normal. No hydronephrosis. No renal calculi or focal parenchymal lesions. The kidney measures 9 cm in maximum dimension. LEFT KIDNEY: Normal. No hydronephrosis. No renal calculi or focal parenchymal lesions. The kidney measures 11 cm in maximum dimension. SPLEEN: Normal. The spleen measures 9 cm in maximum dimension. FREE FLUID: None. US/US abdomen comp w elastography IMPRESSION: 1. Impression 2 x 1.2 x 1.3 cm lesion adjacent to the gallbladder wall worrisome for a gallbladder mass. Limited visualization the tail of the pancreas. 2. Liver elastography: Adequate liver sampling. Normal liver stiffness. REFERENCE: Society of Radiologists in Ultrasound Liver Stiffness Thresholds (2020): LIVER STIFFNESS THRESHOLDS: *Liver Stiffness equal or less than 1.3 m/s: High probability of being normal. *Liver Stiffness less than 1.7 m/s: In the absence of other known clinical signs, rules out compensated advanced chronic liver disease. *Liver Stiffness 1.7-2.1 m/s: Suggestive of compensated advanced chronic liver disease but need further test for confirmation. *Liver Stiffness over 2.1 m/s: Rules in compensated advanced chronic liver disease. *Liver Stiffness over 2.4 m/s: Suggestive of clinically significant portal hypertension. QUALITY OF DATA SET: *IQR/Median value equal or less than 0.15 implies a quality data set. *IQR/Median value over 0.15 implies a poor quality data set. SIGNIFICANT CHANGE FROM PRIOR EXAM: Significant change if liver stiffness measurement is 10% or greater from prior exam. OTHER CONSIDERATIONS: The stage of liver fibrosis may be overestimated in the setting of acute hepatitis, liver inflammation, elevated liver function tests, hepatic vascular congestion, obstructive cholestasis, non-fasting state, and infiltrative diseases such as amyloidosis and lymphoma. In some patients with NAFLD, the liver stiffness thresholds for compensated advanced chronic liver disease may be lower. In causes other than viral hepatitis and NAFLD, liver stiffness thresholds are not well established. Findings will be communicated by the [place] work flow nurse first assist.
== END 2021-05-27 09:25 | disposition home or self-care (01) ==
LOC: HO.US 09:24
PROVIDERS: Visit Provider Internal Medicine Gastroenterology
DX: R10.11 Right upper quadrant pain (principal)
CPT/HCPCS: 76705; 76981

== ENCOUNTER 2021-06-04 07:21 | Outpatient (REF) | payer MEDICAID, SELFPAY ==
--- NOTE | ~2021-06-04 | MR_ITS ---
EXAMINATION: MR ABDOMEN WITHOUT AND WITH CONTRAST CLINICAL INFORMATION: Other specified diseases of gallbladder. Rule out gallbladder mass. COMPARISON: Previous CT of the abdomen and pelvis 11/18/2020 and abdominal ultrasound May 2019 TECHNIQUE: MR abdomen was performed without and with use of 10 mL intravenous Gadavist gadolinium contrast. Postcontrast images are performed in multiphase dynamic sequences. Imaging was performed in 3 planes. MRCP sequences were also performed. Exam is limited due to artifact from respiratory motion. FINDINGS: Exam is limited due to motion artifact. LUNG BASES: The visualized lung bases are unremarkable. LIVER, GALLBLADDER, AND BILIARY TREE: The liver is normal in size, smooth in contour, and normal in signal. No focal hepatic lesion or biliary ductal dilatation is present. There is a polypoid lesion adjacent to the right lateral gallbladder wall. This measures 9 x 1.8 x 1.5 cm in transverse, AP and longitudinal dimension. This is intermediate signal on T1-weighted sequences, low signal on T2-weighted sequences and demonstrates evidence of enhancement. Appearance is concerning for a large polyp or mass. The gallbladder is normal in size. The gallbladder wall does not appear thickened. No gallstones are seen. MRCP sequences are limited due to motion artifact. There is no intrahepatic or extrahepatic biliary duct dilatation. PANCREAS: Unremarkable. SPLEEN: Normal. ADRENAL GLANDS: Normal. KIDNEYS AND URETERS: The kidneys are normal in size, shape, and enhance symmetrically. No hydronephrosis. No perinephric stranding. GASTROINTESTINAL TRACT: No bowel obstruction. No ascites or fluid collection. ABDOMINAL WALL: No significant hernia is appreciated. LYMPH NODES: No lymphadenopathy. VASCULAR: Unremarkable. OSSEOUS STRUCTURES: Marrow signal normal. MR/MR abdomen wo/w con IMPRESSION: Limited exam due to artifact from respiratory motion. Irregularly-shaped polypoid 0.9 x 1.8 x 1.5 cm enhancing lesion adjacent to the gallbladder wall worrisome for a gallbladder polyp or mass. No gallstone seen.
== END 2021-06-04 07:22 | disposition home or self-care (01) ==
LOC: HO.MRI 07:21
PROVIDERS: Visit Provider Internal Medicine Gastroenterology
DX: K82.8 Other specified diseases of gallbladder (principal)
CPT/HCPCS: 74183; A9585

== ENCOUNTER → 2021-06-14 15:18 | Outpatient (BNVA) | payer MEDICAID, SELFPAY | PROVIDERS: PCP Internal Medicine; Referring Provider Internal Medicine; Visit Provider Surgery | DX: K82.4 Cholesterolosis of gallbladder (principal) | CPT/HCPCS: 99202 ==

== ENCOUNTER 2021-07-20 09:20 | Day surgery (SDC) | payer MEDICAID, SELFPAY ==
[2021-07-14 12:44] VITALS: BMI 36.9
--- NOTE | 2021-07-19 08:27 | HO.ANESPROP2 ---
Documented by User: Bri Kasper NP 07/19/21 08:28 HPI - Anesthesia Eval Consult details Narrative: 30yo F for Cholecystectomy Laparoscopic, Poss Open PMFSH Active Problems Active Problems: All Active Problems (Updated 07/14/21 @ 12:54 by Ameena Brown RN) Family history of breast cancer in first degree relative (Acute) Renal calculi (Acute) Acid reflux (Acute) Constipation due to pain medication (Acute) RUQ pain (Acute) Gallbladder mass (Acute) Gallbladder polyp (Acute) Past Medical History Medical History (Updated 07/14/21 @ 12:54 by Ameena Brown RN) Acid reflux Anxiety Asthma COVID-19 vaccine series completed Depression Gallbladder polyp Family History Family History Mother Breast cancer Maternal Aunt Breast cancer Maternal Grandmother Breast cancer Family history of problems with anesthesia: No Surgical History Surgical History (Updated 07/14/21 @ 12:57 by Ameena Brown RN) History of esophagogastroduodenoscopy (EGD) Hx of hand surgery History of Problems with Anesthesia: No Social History Social History Household Members Other:: one child Are you a primary care management associate to a significant other at home: No Do you presently have visiting nurse or other home services: No Alcohol intake: current Alcohol intake frequency: holidays/special occasions only Patient Tobacco Use Status: Never used Tobacco Use of substances other than those prescribed or required for medical reasons: Yes Substance Use Type: Marijuana Have you been hit, kicked, punched, or otherwise hurt by someone within the past year? If so, by whom?: No Are you DNR?: No Advance Directives: No Advance Directives Information Provided: Yes (brochure mailed) Advance Directives on File: No Recently lost weight without trying: No Eating poorly because of decreased appetite: No Nutrition Risks: No Nutritional Risk Patient : No FDLMP: 07/04/21 : No Poor oral hygiene: No Current occupational status: employed Gender identity: Female Meds Allergies Allergy/AdvReac Type Severity Reaction Status Date / Time Seasonal Allergies Allergy Intermediate eye Verified 07/14/21 12:39 itching/congestion Home Medications Medication Instructions Recorded Confirmed Last Taken Type hydroxyzine HCl 50 mg tablet 50 mg PO BEDTIME 12/09/20 07/14/21 Unknown History loratadine 10 mg tablet 10 mg PO DAILY PRN 01/05/21 07/14/21 Unknown History pyridoxine (vitamin B6) 100 mg 100 mg PO DAILY 01/05/21 07/14/21 Unknown History tablet albuterol sulfate 90 mcg/actuation 2 puff PO Q4-6H PRN 01/22/21 07/14/21 Unknown History aerosol inhaler (ProAir HFA) clonidine HCl 0.2 mg tablet 1 tab PO BEDTIME 01/22/21 07/14/21 Unknown History Exam Exam Date and Time: July 19, 2021 0827 Height,Weight and Vital Signs: Height 5 ft 6 in Weight 103.873 kg Pertinent Lab Results Pertinent Lab Results: Laboratory Tests 04/07/21 04/07/21 08:17 08:17 WBC 12.3 H Hgb 13.7 Hct 41.8 Plt Count 268 Sodium 142 Potassium 3.8 Chloride 108 Carbon Dioxide 28 BUN 14 Creatinine 0.99 Assessment and Plan Assessment Anesthesia Assessment: Chart Reviewed Final Anesthetic Review Family History of Problems with Anesthesia: No History of Problems with Anesthesia: No Documented by User: Neto Marc MD 07/20/21 12:18 [facility] Past Medical History Medical History (Updated 07/14/21 @ 12:54 by Ameena Brown RN) Acid reflux Anxiety Asthma COVID-19 vaccine series completed Depression Gallbladder polyp Patient : No Family History Family History Mother Breast cancer Maternal Aunt Breast cancer Maternal Grandmother Breast cancer Surgical History Surgical History (Updated 07/14/21 @ 12:57 by Ameena Brown RN) History of esophagogastroduodenoscopy (EGD) Hx of hand surgery Social History Social History Household Members Other:: one child Are you a primary care management associate to a significant other at home: No Do you presently have visiting nurse or other home services: No Alcohol intake: current Alcohol intake frequency: holidays/special occasions only Patient Tobacco Use Status: Never used Tobacco Use of substances other than those prescribed or required for medical reasons: Yes Substance Use Type: Marijuana Have you been hit, kicked, punched, or otherwise hurt by someone within the past year? If so, by whom?: No Are you DNR?: No Advance Directives: No Advance Directives Information Provided: Yes (brochure mailed) Advance Directives on File: No Recently lost weight without trying: No Eating poorly because of decreased appetite: No Nutrition Risks: No Nutritional Risk Patient : No FDLMP: 07/04/21 : No Poor oral hygiene: No Current occupational status: employed Gender identity: Female Meds Allergies Allergy/AdvReac Type Severity Reaction Status Date / Time Seasonal Allergies Allergy Intermediate eye Verified 07/14/21 12:39 itching/congestion Home Medications Medication Instructions Recorded Confirmed Last Taken Type hydroxyzine HCl 50 mg tablet 50 mg PO BEDTIME 12/09/20 07/14/21 Unknown History loratadine 10 mg tablet 10 mg PO DAILY PRN 01/05/21 07/14/21 Unknown History pyridoxine (vitamin B6) 100 mg 100 mg PO DAILY 01/05/21 07/14/21 Unknown History tablet albuterol sulfate 90 mcg/actuation 2 puff PO Q4-6H PRN 01/22/21 07/14/21 Unknown History aerosol inhaler (ProAir HFA) clonidine HCl 0.2 mg tablet 1 tab PO BEDTIME 01/22/21 07/14/21 Unknown History Exam Airway Mallampati Class: I TM Dist: >3cm Neck ROM: Full Loose/Missing/Broken Teeth: No Heart: ok Lungs: ok Assessment and Plan Final Anesthetic Review NPO: Yes ASA Class: II Final Preanesthetic Review: No Changes in Pt Med Stat, Meds/Allgs Chart Reviewed, Consent Obtained/Reviewed and Anes Risks/Benef Reviewed Patient Risk: Intermediate Procedure Risk: Intermediate Anesthetic Plan Anesthetic Plan: GA and Agree w/ Assess. and Plan Disposition: Standard PACU
[2021-07-20] VITALS (14 sets, daily range): BP systolic 122–152; BP diastolic 68–92; PULSE 49–80; RESP 14–20; TEMP 36.5–36.7; O2SAT 96–100
[2021-07-20 09:45] LABS: UPreg QC Valid YES; Urine Pregnancy NEGATIVE (NEGATIVE)
[2021-07-20] MEDS: Lactated Ringers 1,000 ML 100 ML IVCONT (10:19)
[2021-07-20] MEDS: Acetaminophen 325 MG TABLET 650 MG PO (10:19)
--- NOTE | 2021-07-20 11:30 | MHC.SHP ---
Pre-Procedural Eval Section A Date of Service: 07/20/21 Section B Chief Complaint: Gallbladder Polyp Details of Present Illness: has had a GB polyp on imaging studies, more than 1 cm; describes occasional RUQ pain Relevant Family History (Specify if Yes): No Relevant Social History: None Present Medications: see Short Stay Collaborative assessment Medical History: Significant History (hx of nephrolithiases) Allergies: Allergies Allergy/AdvReac Type Severity Reaction Status Date / Time Seasonal Allergies Allergy Intermediate eye Verified 07/14/21 12:39 itching/congestion Review of Systems Sugical H&P ROS: Negative: Constitution, Cardiovascular, Respiratory, Neurological, Psychiatric, Hem-Onc, Allergic/Immunologic, Gastrointestinal, Genitourinary, Musculoskeletal, Integumentary, Endocrine and Eyes/Ears/Nose/Throat Exam Surgical H&P Exam: Normal: HEENT, Normal: Heart, Normal: Lungs, Normal: Extremities, Normal: Abdomen, Normal: Skin and Normal: Neurological Plan Diagnosis/Plan: Unchanged I have reviewed the history and physical and performed a pertinent physical examination on my patient. No changes have occurred unless specified.
--- NOTE | 2021-07-20 13:12 | P.OP_ITS ---
Operative Note Operative Note Date of Service: 07/20/21 Narrative: Preop diagnosis: Gallbladder polyp Postop diagnose: Gallbladder polyp Procedure: Laparoscopic cholecystectomy Surgeon: Venkata Rider MD distribution center assistant: FE Tubbs The patient is a 30 year female with periodic right upper quadrant pain in the past along with multiple imaging study showing a large gallbladder polyp at about 2 cm in largest dimension. She was therefore referred to me I had recommended proceeding with cholecystectomy. I discussed with the technique of laparoscopic cholecystectomy and possible open cholecystectomy. I reviewed the risks including but not limited to bleeding, infections, injury to bowel, liver and bile ducts, as well as the benefits and alternatives and she had given consent. She was brought to the operating room and placed supine on the table under gener al anesthesia via endotracheal tube. The abdomen is prepped and draped in the usual sterile fashion. A surgical time-out was done. The patient received IV preoperatively. I made a short incision on the supraumbilical margin using a blade 15. This was carried down through the full-thickness of the skin subcutaneous fat to the fascia. The fascia was incised. The peritoneum was entered. Through this incision a Tristian port was introduced. Pneumoperitoneum was introduced to a pressure of 15 mmHg. From here on the rest of procedure was done under vision with the laparoscope. With laparoscopic visualization, proceeded to insert a 5/12 mm port in the epigastric able to subcostal margin. Two 5 mm ports introduced a small incisions below the subcostal margin along the anterior axillary line and the midclavicular line. Graspers were placed through these working ports. The patient was placed in head-up [id number] position. The gallbladder was seen. This was supple low with filmy adhesions and there inter wall. I was able to apply grasper at the fundus to retract the gallbladder cephalad. I carefully dissected the filmy adhesions off of the anterior wall the gallbladder until this was cleared. I was able to apply another grasper towards the infundibulum of the gallbladder. This was used to retract the gallbladder laterally. At this point therefore the gallbladder was being retracted in a lateral and cephalad fashion to put the area of the cystic duct on stretch. I carefully dissected the cystic duct using the [place] dissector until I was able to clearly see is confluence with the neck of the gallbladder. By doing so was able to achieve a critical view of the hepatocystic triangle and there were no other tubular structures in this area. The cystic artery was also visible running parallel to the cystic duct posteriorly. with confluence of the cystic duct with the neck of the gallbladder confirmed, I applied clips with 2 clips being applied distally. The cystic duct was transected between clips with Endo scissors I also applied clips on the cystic artery after careful dissection with the [place] dissector. The cystic artery was also transected between clips with Endo scissors. I divided through the hilum of the gallbladder until we reached the interface of the gallbladder wall and the liver bed. With traction on the gallbladder away from the liver bed, I proceeded to then Incised the peritoneum of the gallbladder using the electrocautery spatula. I then proceeded to define a plane of dissection between the gallbladder wall and the liver bed with a combination of electrocautery as well as blunt dissection with the tip of the spatula. I proceeded to separate the gallbladder I from the liver along this well-defined plane of dissection anterior I reached the fundus. The gallbladder was completely and was retrieved through an endobag through the umbilical incision. I reinserted all ports and insufflated. I examined the subhepatic space. There was note of good hemostasis. There was no evidence of any bile leak. I observed all 4 quadrants. There was no other pathology seen or any evidence of any bowel injury. I observed the subhepatic space again. Once this was confirmed to be dry, I desufflated Through the port sites. I removed all ports under vision with the laparoscope. I then close the fascia of the umbilical incision with a figure-eight Dexon 0 stitch. Skin closure was achieved on all incisions using Dexon 4-0 subcuticular running sutures. Steri-Strips and dressings were applied All incisions were infiltrated with Marcaine 0.5% for postop analgesia. The procedure was then completed . The patient tolerated the procedure well. There were no complications noted. Initial and final counts of sponges and instruments were correct. Estimated blood loss about 20 cc . The patient was extubated without difficulty and transferred to the recovery room with stable vital signs.
[2021-07-20] MEDS: fentaNYL citrate/PF 100 MCG/2 ML VIAL 50 MCG IVPUSH ×4 (13:29→14:21)
[2021-07-20] MEDS: oxyCODONE HCl Immed Release 5 MG TABLET PO ×2 (13:31→14:27)
== END 2021-07-20 15:48 ==
LOC: HO.SSS 09:21
PROVIDERS: Nurse Practitioner; Visit Provider Surgery
PROC: 0FT44ZZ Resection of Gallbladder, Percutaneous Endoscopic Approach (ICD-10-PCS; CPT 47562; principal; 2021-07-20 12:00)
DX: K81.1 Chronic cholecystitis (principal); K82.8 Other specified diseases of gallbladder; K21.9 Gastro-esophageal reflux disease without esophagitis; Z86.19 Personal history of other infectious and parasitic diseases; J45.909 Unspecified asthma, uncomplicated; F32.9 Major depressive disorder, single episode, unspecified; F12.90 Cannabis use, unspecified, uncomplicated
CPT/HCPCS: 47562; 81025; 88304; J1100; J1885; J2250; J2405; J3010

== ENCOUNTER 2021-07-26 14:28 | Outpatient (REF) | payer MEDICAID, SELFPAY ==
--- NOTE | ~2021-07-26 | US_ITS ---
EXAMINATION: US RETROPERITONEAL LIMITED (RENAL ONLY) CLINICAL INFORMATION: Calculus of kidney. COMPARISON: MR abdomen without and with contrast 06/04/2021. Ultrasound abdomen complete with elastography 05/27/2021. US retroperitoneal limited (renal only) 12/24/2020. CT abdomen and pelvis with contrast 11/18/2020. TECHNIQUE: Real-time imaging of the kidneys. FINDINGS: RIGHT KIDNEY: 10.6 x 4.5 x 4.8 cm (SAG x AP x TRV). The kidney is normal in size, contour, and echogenicity. Renal cortical thickness is normal. No calculi or focal parenchymal lesions. No hydronephrosis. LEFT KIDNEY: 10.9 x 5.3 x 5.5 cm (SAG x AP x TRV). The kidney is normal in size, contour, and echogenicity. Renal cortical thickness is normal. No calculi or focal parenchymal lesions. No hydronephrosis. US/US renal BI IMPRESSION: Unremarkable renal ultrasound.
== END 2021-07-26 14:29 | disposition home or self-care (01) ==
LOC: HO.US 14:28
DX: N20.0 Calculus of kidney (principal)
CPT/HCPCS: 76775

== ENCOUNTER → 2021-08-02 13:46 | Outpatient (BNVA) | payer MEDICAID, SELFPAY | PROVIDERS: PCP Internal Medicine; Referring Provider Internal Medicine; Visit Provider Surgery | DX: Z48.815 Encounter for surgical aftercare following surgery on the digestive system (principal); Z87.19 Personal history of other diseases of the digestive system | CPT/HCPCS: 99212 ==

== ENCOUNTER → 2021-08-03 08:31 | Outpatient (BNVA) | payer MEDICAID, SELFPAY | PROVIDERS: PCP Internal Medicine | DX: Z13.89 Encounter for screening for other disorder (principal) ==

== ENCOUNTER 2021-09-20 08:10 | Outpatient (REF) | payer MEDICAID, SELFPAY ==
[2021-09-20 17:51] LABS: CT PCR NOT DETECTED (Not Detect.); NG PCR NOT DETECTED (Not Detect.)
[2021-09-21 13:16] LABS: BV Int Neg Control Negative (Negative); BV Int Pos Control Positive (Positive)
[2021-10-08 21:32] LABS: HPV 16 RNA NOT DETECTED (NOT DETECTED); HPV mRNA E6/E7 rflx Detected (Not Detected)
== END 2021-09-20 08:11 | disposition home or self-care (01) ==
LOC: HO.LAB 08:10
PROVIDERS: PCP Internal Medicine; Visit Provider Advanced Practice Midwife
DX: Z01.411 Encounter for gynecological examination (general) (routine) with abnormal findings (principal); N92.0 Excessive and frequent menstruation with regular cycle; Z20.2 Contact with and (suspected) exposure to infections with a predominantly sexual mode of transmission; Z80.3 Family history of malignant neoplasm of breast
CPT/HCPCS: 87480; 87491; 87510; 87591; 87624; 87625; 87660; 88142

== ENCOUNTER 2021-11-23 08:43 | Outpatient (REF) | payer MEDICAID, SELFPAY | END 2021-11-23 08:44 | disposition home or self-care (01) | LOC: HO.LAB 08:43 | PROVIDERS: PCP Internal Medicine; Visit Provider Obstetrics & Gynecology | DX: Z32.02 Encounter for pregnancy test, result negative (principal); R87.610 Atypical squamous cells of undetermined significance on cytologic smear of cervix (ASC-US); R87.810 Cervical high risk human papillomavirus (HPV) DNA test positive | CPT/HCPCS: 57454; 81025; 88305; 88342; 88360 ==

== ENCOUNTER → 2021-12-08 08:37 | Outpatient (BNVA) | payer MEDICAID, SELFPAY | PROVIDERS: PCP Internal Medicine; Visit Provider Obstetrics & Gynecology | DX: N87.1 Moderate cervical dysplasia (principal) | CPT/HCPCS: 99212 ==

== ENCOUNTER 2022-01-07 15:24 | Outpatient (REF) | payer MEDICAID, SELFPAY ==
--- NOTE | ~2022-01-07 | US_ITS ---
EXAMINATION: US RETROPERITONEAL LIMITED (RENAL ONLY) CLINICAL INFORMATION: Calculus of kidney. COMPARISON: Renal ultrasound 07/26/2021. MRI abdomen 06/04/2021. Ultrasound abdomen with elastography 05/27/2021. CT abdomen and pelvis 11/18/2020. TECHNIQUE: Real-time imaging of the kidneys. FINDINGS: RIGHT KIDNEY: 10.6 x 4.7 x 4.8 cm (SAG x AP x TRV). The kidney is normal in size, contour, and echogenicity. Renal cortical thickness is normal. There is a 3 mm stone in the lower pole. No focal parenchymal lesions or hydronephrosis. LEFT KIDNEY: 10.9 x 5.0 x 4.8 cm (SAG x AP x TRV). The kidney is normal in size, contour, and echogenicity. Renal cortical thickness is normal. No calculi or focal parenchymal lesions. No hydronephrosis. US/US renal BI IMPRESSION: Small right renal stone.
== END 2022-01-07 15:25 | disposition home or self-care (01) ==
LOC: HO.US 15:24
DX: N20.0 Calculus of kidney (principal)
CPT/HCPCS: 76775

== ENCOUNTER 2022-02-07 06:00 | Emergency (ER) | payer MEDICAID, SELFPAY ==
--- NOTE | ~2022-02-07 | XR_ITS ---
EXAMINATION: XR CHEST CLINICAL INFORMATION: Cough COMPARISON: 10/21/2020 TECHNIQUE: 2 views of the chest were obtained. FINDINGS: No significant abnormality is noted involving the heart, lungs, mediastinum, bony thorax or soft tissues. XR/XR chest 2V IMPRESSION: Unremarkable examination.
[2022-02-07 06:03] VITALS: BP 149/89; PULSE 93; RESP 16; TEMP 36.1; O2SAT 96; BMI 36.3
--- NOTE | 2022-02-07 06:33 | PC.NURSE ---
Pt reports three days of cough with associated eye pain, chest and rib pain. States nausea with minimal vomiting. Sick contacts at work. Swabs completed
--- NOTE | 2022-02-07 06:37 | ED_ITS ---
HPI - URI/Sore Throat General Chief Complaint: General Medical Stated Complaint: Cough/SOB Time Seen by Provider: 02/07/22 06:36 Source: patient Mode of arrival: ambulatory Limitations: no limitations History of Present Illness MD elicited complaint: cough and rhinorrhea Pertinent past history: asthma Onset (ago): day(s) (2) Consistency: constant Severity: moderate Description of mucous: clear Able to tolerate fluids by mouth: Yes Exacerbating factors: other (coughing) Relieving factors: OTC cold medicine Context: sick contacts (work contacts) Associated symptoms: chills, nasal congestion, cough, shortness of breath, vomiting and diarrhea Treatments prior to arrival: cold medicine Related Data Home Medications Medication Instructions Recorded Confirmed hydroxyzine HCl 50 mg tablet 50 mg PO BEDTIME 12/09/20 07/14/21 loratadine 10 mg tablet 10 mg PO DAILY PRN allergies 01/05/21 07/14/21 pyridoxine (vitamin B6) 100 mg 100 mg PO DAILY 01/05/21 07/14/21 tablet albuterol sulfate 90 mcg/actuation 2 puff PO Q4-6H PRN asthma 01/22/21 07/14/21 aerosol inhaler (ProAir HFA) clonidine HCl 0.2 mg tablet 1 tab PO BEDTIME 01/22/21 07/14/21 amitriptyline 10 mg tablet 10 mg PO BEDTIME 08/03/21 Previous Rx's Medication Instructions Recorded ibuprofen 600 mg tablet 600 mg PO Q6H PRN pain #30 tabs 07/20/21 benzonatate 100 mg capsule 100 mg PO TID PRN cough #14 caps 02/07/22 ondansetron 4 mg disintegrating 4 mg PO Q8H PRN nausea and 02/07/22 tablet vomiting #20 tabs prednisone 20 mg tablet 40 mg PO DAILY 4 days #8 tabs 02/07/22 Allergies Allergy/AdvReac Type Severity Reaction Status Date / Time Seasonal Allergies Allergy Intermediate eye Verified 09/20/21 08:32 itching/congestion Review of Systems Review of Systems: Constitutional : No Fever, pos Chills, pos Fatigue, No Malaise ENT/Mouth : No sore throat, pos Rhinorrhea Eyes: No Eye Pain, No Swelling, No Redness Cardiovascular : No Chest Pain, pos SOB Respiratory : pos Cough, No Sputum, pos Wheezing Gastrointestinal : No Nausea, pos Vomiting, pos Diarrhea, No Constipation, No abdominal Pain Genitourinary : No Dysuria, No Urinary Frequency, No Hematuria, Musculoskeletal : No joint pain, No Myalgias, No Joint Swelling Skin : No Skin Lesions, No rash Neuro : No Weakness, No Numbness, No Dizziness, No Headache All other systems reviewed and are negative [facility] Past Medical History Attestation statement: The following information was validated with the patient. Medical History Acid reflux Anxiety Asthma COVID-19 vaccine series completed Depression Gallbladder polyp Surgical History History of esophagogastroduodenoscopy (EGD) History of laparoscopic cholecystectomy (~07/20/21) Hx of hand surgery Family History Family History Mother Breast cancer Maternal Aunt Breast cancer Maternal Grandmother Breast cancer Social History Social History Household Members Other:: one child Are you a primary acute care physician to a significant other at home: No Do you presently have visiting nurse or other home services: No Alcohol intake: current Alcohol intake frequency: does not drink Patient Tobacco Use Status: Never used Tobacco Use of substances other than those prescribed or required for medical reasons: Yes Substance Use Type: Marijuana Advance Directives: No Current occupational status: employed Gender identity: Female Physical Exam Vital Signs: Vital Signs: Last Vital Signs Temp 97 F 02/07/22 06:03 Pulse 76 02/07/22 07:11 Resp 18 02/07/22 07:11 BP 149/89 H 02/07/22 06:03 Pulse Ox 96 02/07/22 06:03 O2 Del Method 02/07/22 06:03 BMI result Body Mass Index 36.3 Appearance: Alert. Oriented X3. No acute distress. Eyes: Pupils equal, round and reactive to light. ENT: Pharynx normal. Neck: Normal inspection. Neck supple. CVS: Normal heart rate and rhythm. Pulses normal. Respiratory: No respiratory distress. Breath sounds faint wheezes upper lobes L > R Abdomen: Soft and non-tender. Skin: Skin warm and dry. Normal skin color. Normal skin turgor. Extremities: No lower extremity edema. No calf ttp Neuro: Oriented X 3. No motor deficit. No sensory deficit. Course Course Course Narrative: feels better stable for DC MDM - URI/Sore Throat MDM Narrative Medical decision making narrative: 31 yo female with hx of asthma has rescue inhaler here with c/o URI symptoms x 2 days - flu/COVID negative CXR negative suspect bronchitis will give neb steroids, zofran. She is not in resp distress and not hypoxic. Anticipate DC after supportive care. Lab Data Labs: Lab Results 02/07/22 02/07/22 02/07/22 Range/Units 06:25 06:25 07:21 Urine Test NEGATIVE (NEGATIVE) COVID-19 (NARCISO) Negative (Negative) COVID-19 Clin Com See Note Influenza Type A (TANYA) Negative (Negative) Influenza Type B (TANYA) Negative (Negative) Influenza A & B Note See Note Discharge Plan Discharge Clinical Impression: Bronchitis Patient Disposition: Home, Self-Care Instructions: Acute Bronchitis (ED) Additional Instructions: return to ED for any worsening symptoms or concerns negative flu and COVID swab negative CXR follow up with your doctor if not better in 2 days Prescriptions: New prednisone 20 mg tablet 40 mg PO DAILY 4 Days Qty: 8 0RF benzonatate 100 mg capsule 100 mg PO TID PRN (Reason: cough) Qty: 14 0RF ondansetron 4 mg tablet,disintegrating 4 mg PO Q8H PRN (Reason: nausea and vomiting) Qty: 20 0RF No Action clonidine HCl 0.2 mg tablet 1 tab PO BEDTIME albuterol sulfate [ProAir HFA] 90 mcg/actuation HFA aerosol inhaler 2 puff PO Q4-6H PRN (Reason: asthma) ibuprofen 600 mg tablet 600 mg PO Q6H PRN (Reason: pain) Qty: 30 0RF loratadine 10 mg tablet 10 mg PO DAILY PRN (Reason: allergies) pyridoxine (vitamin B6) 100 mg tablet 100 mg PO DAILY amitriptyline 10 mg tablet 10 mg PO BEDTIME hydroxyzine HCl 50 mg tablet 50 mg PO BEDTIME Stand Alone Forms: Work/School Release
[2022-02-07 06:45] LABS: COVID-19 Test Negative (Negative); IDNOW Serial# 55D5AD1C; IDNOW Serial# 9DB6401D; Influenza A Negative (Negative); Influenza B2 Negative (Negative)
[2022-02-07] MEDS: Albuterol/Iprat 2.5/0.5MG 3 ML AMPUL.NEB INHALE (07:10)
[2022-02-07 07:11] VITALS: PULSE 76; RESP 18; O2SAT 97
[2022-02-07] MEDS: predniSONE 20 MG TABLET 40 MG PO (07:18)
[2022-02-07] MEDS: Benzonatate 100 MG CAPSULE PO (07:18)
[2022-02-07] MEDS: Ondansetron ODT 4 MG TAB.RAPDIS TRANSLINGU (07:18)
[2022-02-07 07:32] LABS: UPreg QC Valid YES; Urine Pregnancy NEGATIVE (NEGATIVE)
== END 2022-02-07 08:11 | disposition home or self-care (01) ==
PROVIDERS: Emergency Provider Emergency Medicine; PCP Internal Medicine
DX: J40 Bronchitis, not specified as acute or chronic (principal); Z20.822 Contact with and (suspected) exposure to COVID-19
CPT/HCPCS: 71046; 81025; 87502; 87635; 94640; 99284

== ENCOUNTER 2022-04-20 21:58 | Emergency (ER) | payer MEDICAID, SELFPAY ==
[2022-04-20 22:53] VITALS: BP 131/80; PULSE 104; RESP 16; TEMP 36.7; O2SAT 98; BMI 34.7
[2022-04-21 00:30] LABS: Influenza A PCR NEGATIVE (Negative); Influenza B PCR NEGATIVE (Negative); Resp Syncy Virus RNA Qual PCR NEGATIVE (Negative); SARS COV2 PCR INHOUSE POSITIVE (Negative)
--- NOTE | 2022-04-21 00:32 | ED_ITS ---
HPI - General Adult General Chief complaint: General Medical Stated complaint: Covid? Time Seen by Provider: 04/21/22 00:32 Source: patient Mode of arrival: ambulatory History of Present Illness HPI narrative: Patient with body aches cold symptoms for last 2 days already been vaccinated has dry cough loose bowels no significant shortness of breath patient has not received a booster dose yet Related Data Home Medications Medication Instructions Recorded Confirmed hydroxyzine HCl 50 mg tablet 50 mg PO BEDTIME 12/09/20 07/14/21 loratadine 10 mg tablet 10 mg PO DAILY PRN allergies 01/05/21 07/14/21 pyridoxine (vitamin B6) 100 mg 100 mg PO DAILY 01/05/21 07/14/21 tablet albuterol sulfate 90 mcg/actuation 2 puff PO Q4-6H PRN asthma 01/22/21 07/14/21 aerosol inhaler (ProAir HFA) clonidine HCl 0.2 mg tablet 1 tab PO BEDTIME 01/22/21 07/14/21 amitriptyline 10 mg tablet 10 mg PO BEDTIME 08/03/21 Previous Rx's Medication Instructions Recorded ibuprofen 600 mg tablet 600 mg PO Q6H PRN pain #30 tabs 07/20/21 benzonatate 100 mg capsule 100 mg PO TID PRN cough #14 caps 02/07/22 ondansetron 4 mg disintegrating 4 mg PO Q8H PRN nausea and 02/07/22 tablet vomiting #20 tabs prednisone 20 mg tablet 40 mg PO DAILY 4 days #8 tabs 02/07/22 benzonatate 200 mg capsule 200 mg PO TID PRN cough #30 caps 04/21/22 dexamethasone 6 mg tablet 6 mg PO DAILY 6 days #6 tabs 04/21/22 Allergies Allergy/AdvReac Type Severity Reaction Status Date / Time Seasonal Allergies Allergy Intermediate eye Verified 09/20/21 08:32 itching/congestion Review of Systems Review of Systems: Yes all other systems are reviewed and are negative PMFSH Past Medical History Medical History Acid reflux Anxiety Asthma COVID-19 vaccine series completed Depression Gallbladder polyp Surgical History History of esophagogastroduodenoscopy (EGD) History of laparoscopic cholecystectomy (~07/20/21) Hx of hand surgery Family History Family History Mother Breast cancer Maternal Aunt Breast cancer Maternal Grandmother Breast cancer Social History Social History Household Members Other:: one child Are you a primary child care worker to a significant other at home: No Do you presently have visiting nurse or other home services: No Alcohol intake: current Alcohol intake frequency: does not drink Patient Tobacco Use Status: Never used Tobacco Substance Use Type: Marijuana Advance Directives: No Current occupational status: employed Gender identity: Female Physical Exam ED Vital Signs: Vital Signs - 24 hr 04/20/22 22:53 Temperature 98.1 F Pulse Rate 104 H Respiratory Rate 16 Blood Pressure 131/80 Pulse Oximetry 98 Oxygen Delivery Method Room Air BMI result Body Mass Index 34.7 Appearance: Alert. Oriented X3. No acute distress. ENT: Pharynx normal. Oral Mucosa moist clear rhinorrhea Neck: Normal inspection. Neck supple. CVS: Normal heart rate and rhythm. Pulses normal. Respiratory: No respiratory distress. Equal air entry bilateral, no wheezing/rales/rhonchi Skin: Skin warm and dry. Normal skin color. Normal skin turgor. Extremities: No lower extremity edema. Neuro: Oriented X 3. Medical Decision Making Lab Data [facility] Lab Attestation statement: I reviewed the patient's lab results. Labs: Lab Results 04/20/22 Range/Units 23:48 Influenza Type A (PCR) NEGATIVE (Negative) Influenza Type B (PCR) NEGATIVE (Negative) RSV RNA Qual (PCR) NEGATIVE (Negative) SARS-CoV-2 RNA (RT-PCR) POSITIVE A (Negative) Discharge Plan Discharge Clinical Impression: COVID-19 Patient Disposition: Home, Self-Care Instructions: COVID-19 (Coronavirus Disease 2019) (ED) Additional Instructions: Social distancing Keep hydrated Decadron as prescribed Cough drops and advised Follow with PCP Prescriptions: New benzonatate 200 mg capsule 200 mg PO TID PRN (Reason: cough) Qty: 30 0RF dexamethasone 6 mg tablet 6 mg PO DAILY 6 Days Qty: 6 0RF No Action clonidine HCl 0.2 mg tablet 1 tab PO BEDTIME albuterol sulfate [ProAir HFA] 90 mcg/actuation HFA aerosol inhaler 2 puff PO Q4-6H PRN (Reason: asthma) ibuprofen 600 mg tablet 600 mg PO Q6H PRN (Reason: pain) Qty: 30 0RF prednisone 20 mg tablet 40 mg PO DAILY 4 Days Qty: 8 0RF benzonatate 100 mg capsule 100 mg PO TID PRN (Reason: cough) Qty: 14 0RF ondansetron 4 mg tablet,disintegrating 4 mg PO Q8H PRN (Reason: nausea and vomiting) Qty: 20 0RF loratadine 10 mg tablet 10 mg PO DAILY PRN (Reason: allergies) pyridoxine (vitamin B6) 100 mg tablet 100 mg PO DAILY amitriptyline 10 mg tablet 10 mg PO BEDTIME hydroxyzine HCl 50 mg tablet 50 mg PO BEDTIME Stand Alone Forms: Work/School Release
[2022-04-21] MEDS: Benzonatate 100 MG CAPSULE 200 MG PO (00:54)
[2022-04-21] MEDS: dexAMETHasone 6 MG TABLET PO (00:54)
== END 2022-04-21 00:57 | disposition home or self-care (01) ==
PROVIDERS: Emergency Provider Internal Medicine; PCP Internal Medicine
DX: U07.1 COVID-19 (principal); M79.10 Myalgia, unspecified site; Z79.899 Other long term (current) drug therapy
CPT/HCPCS: 0241U; 99282; 99283; J8540

== ENCOUNTER 2022-05-03 20:06 | Emergency (ER) | payer MEDICAID, SELFPAY ==
[2022-05-03 20:21] VITALS: BP 121/69; PULSE 81; RESP 16; TEMP 36.8; O2SAT 97; BMI 35.5
--- NOTE | 2022-05-03 20:22 | ED_ITS ---
HPI - General Adult General Chief complaint: Ear Problems Stated complaint: ear ache Source: patient Mode of arrival: ambulatory Limitations: no limitations History of Present Illness HPI narrative: This is a 31-year-old female past medical history significant for ASCUS presenting to the emergency department for 2-3 days of bilateral ear discomfort, left ear worse than right. Patient tells me she was known COVID positive as of last week, she was coughing a lot and then after coughing she started developing left ear pain. Patient tells me they are both bothering her however the left is worse than the right. Patient reports intermittent chills however no fevers. Patient denies chest pain, shortness of breath, nausea, vomiting, headache, vision changes, dizziness. Related Data Home Medications Medication Instructions Recorded Confirmed hydroxyzine HCl 50 mg tablet 50 mg PO BEDTIME 12/09/20 07/14/21 loratadine 10 mg tablet 10 mg PO DAILY PRN allergies 01/05/21 07/14/21 pyridoxine (vitamin B6) 100 mg 100 mg PO DAILY 01/05/21 07/14/21 tablet albuterol sulfate 90 mcg/actuation 2 puff PO Q4-6H PRN asthma 01/22/21 07/14/21 aerosol inhaler (ProAir HFA) clonidine HCl 0.2 mg tablet 1 tab PO BEDTIME 01/22/21 07/14/21 amitriptyline 10 mg tablet 10 mg PO BEDTIME 08/03/21 Previous Rx's Medication Instructions Recorded ibuprofen 600 mg tablet 600 mg PO Q6H PRN pain #30 tabs 07/20/21 benzonatate 100 mg capsule 100 mg PO TID PRN cough #14 caps 02/07/22 ondansetron 4 mg disintegrating 4 mg PO Q8H PRN nausea and 02/07/22 tablet vomiting #20 tabs prednisone 20 mg tablet 40 mg PO DAILY 4 days #8 tabs 02/07/22 benzonatate 200 mg capsule 200 mg PO TID PRN cough #30 caps 04/21/22 dexamethasone 6 mg tablet 6 mg PO DAILY 6 days #6 tabs 04/21/22 amoxicillin 875 mg-potassium 1 tab PO BID 10 days #20 tabs 05/03/22 clavulanate 125 mg tablet ciprofloxacin 0.3 %-dexamethasone 4 drp otic (ears) BID 7 days #7.5 05/03/22 0.1 % ear drops,suspension mL (Ciprodex) Allergies Allergy/AdvReac Type Severity Reaction Status Date / Time Seasonal Allergies Allergy Intermediate eye Verified 09/20/21 08:32 itching/congestion Review of Systems Review of Systems: Constitutional : No Weight loss, No Fever, No Chills, No Fatigue, No Malaise ENT/Mouth : No sore throat, No Rhinorrhea, + ear pain Eyes: No Eye Pain, No Swelling, No Redness Cardiovascular : No Chest Pain, No SOB, No Dyspnea on Exertion, No Orthopnea, No Edema, No Palpitations Respiratory : No Cough, No Sputum, No Wheezing Gastrointestinal : No Nausea, No Vomiting, No Diarrhea, No Constipation, No abdominal Pain, No Hematochezia, No Melena Genitourinary : No Dysuria, No Urinary Frequency, No Hematuria, Musculoskeletal : No joint pain, No Myalgias, No Joint Swelling Skin : No Skin Lesions, No rash Neuro : No Weakness, No Numbness, No Dizziness, No Headache Psych : No Anxiety/Panic, No Depression All other systems reviewed and are negative Yes all other systems are reviewed and are negative [facility] Past Medical History Attestation statement: The following information was validated with the patient. Source: old records reviewed and nursing notes reviewed Medical History Acid reflux Anxiety Asthma COVID-19 vaccine series completed Depression Gallbladder polyp Surgical History History of esophagogastroduodenoscopy (EGD) History of laparoscopic cholecystectomy (~07/20/21) Hx of hand surgery Family History Family History Mother Breast cancer Maternal Aunt Breast cancer Maternal Grandmother Breast cancer Social History Social History Household Members Other:: one child Are you a primary palliative care specialist to a significant other at home: No Do you presently have visiting nurse or other home services: No Alcohol intake: current Alcohol intake frequency: does not drink Patient Tobacco Use Status: Never used Tobacco Substance Use Type: Marijuana Current occupational status: employed Gender identity: Female Physical Exam ED Vital Signs: Vital signs stable Appearance: Alert.? Oriented X3.? No acute distress.? Head: Normocephalic, atraumatic, no step-offs or deformities Eyes: Pupils equal, round and reactive to light.? ENT: Pharynx normal.? Bilateral ears discomfort with manipulation of external ear. No mastoid tenderness. Bilateral tympanic membranes bulging, and erythematous ear canals. There is a moderate amount of cerumen noted in the left ear. Neck: Normal inspection.? Neck supple.? CVS: Normal heart rate and rhythm.? Pulses normal.? Respiratory: No respiratory distress.? Breath sounds normal.? Abdomen: Soft and nontender.? Skin: Skin warm and dry.? Normal skin color.? Normal skin turgor.? Extremities: No lower extremity edema.? No calf ttp. 5/5 strength to bilateral upper and lower extremities Neuro: Oriented X 3.? No motor deficit.? No sensory deficit. CN 2-12 intact Course Course Course Narrative: 2022 31-year-old female presents with left ear pain status post coughing and having sudden-onset left ear pain, patient tells me she was COVID positive last week. Pain progressively worsening. Denies tinnitus, head trauma, fevers,, chest pain, shortness of breath, nausea, vomiting, headache, vision changes. PE with erythematous and bulging bilateral tympanic membranes. No pain with manipulation of external ear.. Plan will fully evaluate patient in patient will be discharged from the waiting room Reevaluation(s) Reevaluation #1: Patient will be discharged on Augmentin and Ciprodex drops. Advised to return with new or worsening symptoms. Educated patient on diagnosis and treatment plan, answered all question, patient verbalizes understanding. At this time patient will be discharged home, advised to return with new or worsening symptoms. Educated on worrisome signs and symptoms and when to return. At this time I feel comfortable discharge home. Time: 20:27 Medical Decision Making Medical Decision Making MDM Narrative: 2026 31-year-old female presents with bilateral ear discomfort, was recently COVID positive, pain started after coughing hard. Physical examination consistent with otitis media and otitis externa. No signs of mastoiditis, perforated tympanic membrane, malignant otitis. Plan at this time is to discharge patient home on antibiotics and ear drops. Discharge Plan Discharge Clinical Impression: Otitis media, Otitis externa Patient Disposition: Home, Self-Care Instructions: Otitis Externa (ED), How to Use Ear Drops (ED), Ear Infection (ED) Additional Instructions: Take your medications as prescribed. If you were prescribed antibiotics today, it is important that you take your medication to their entirety, do not skip any doses, do not finish them early. Follow-up with your primary care provider this week. Return to the emergency department with new or worsening symptoms. Such as fevers, chills, chest pain, shortness of breath, nausea, vomiting, dizziness, headache, vision changes, lethargy In case of emergency call 911' If pain persists she should follow-up with an ears nose and throat doctor. For ear wax within the ear canal you can use Debrox you can buy this [id number] Prescriptions: New amoxicillin-pot clavulanate 875-125 mg tablet 1 tab PO BID 10 Days Qty: 20 0RF ciprofloxacin-dexamethasone [Ciprodex] 0.3-0.1 % drops,suspension 4 drp otic (ears) BID 7 Days Qty: 7.5 0RF No Action clonidine HCl 0.2 mg tablet 1 tab PO BEDTIME albuterol sulfate [ProAir HFA] 90 mcg/actuation HFA aerosol inhaler 2 puff PO Q4-6H PRN (Reason: asthma) ibuprofen 600 mg tablet 600 mg PO Q6H PRN (Reason: pain) Qty: 30 0RF prednisone 20 mg tablet 40 mg PO DAILY 4 Days Qty: 8 0RF benzonatate 100 mg capsule 100 mg PO TID PRN (Reason: cough) Qty: 14 0RF ondansetron 4 mg tablet,disintegrating 4 mg PO Q8H PRN (Reason: nausea and vomiting) Qty: 20 0RF benzonatate 200 mg capsule 200 mg PO TID PRN (Reason: cough) Qty: 30 0RF dexamethasone 6 mg tablet 6 mg PO DAILY 6 Days Qty: 6 0RF loratadine 10 mg tablet 10 mg PO DAILY PRN (Reason: allergies) pyridoxine (vitamin B6) 100 mg tablet 100 mg PO DAILY amitriptyline 10 mg tablet 10 mg PO BEDTIME hydroxyzine HCl 50 mg tablet 50 mg PO BEDTIME Referrals: Lencho Car [Physician] - 3 days Stand Alone Forms: Work/School Release
== END 2022-05-03 20:39 | disposition home or self-care (01) ==
PROVIDERS: Emergency Provider Internal Medicine
DX: H66.93 Otitis media, unspecified, bilateral (principal); H60.93 Unspecified otitis externa, bilateral; Z79.899 Other long term (current) drug therapy
CPT/HCPCS: 99282; 99283

== ENCOUNTER 2022-07-05 11:06 | Outpatient (REF) | payer MEDICAID, SELFPAY ==
[2022-07-09 01:44] LABS: HPV 16 RNA NOT DETECTED (NOT DETECTED); HPV mRNA E6/E7 rflx Detected (Not Detected)
== END 2022-07-05 11:07 | disposition home or self-care (01) ==
LOC: HO.LNP 11:06
PROVIDERS: Visit Provider Obstetrics & Gynecology
DX: R87.610 Atypical squamous cells of undetermined significance on cytologic smear of cervix (ASC-US) (principal); R87.810 Cervical high risk human papillomavirus (HPV) DNA test positive
CPT/HCPCS: 57454; 87624; 87625; 88142; 88305

== ENCOUNTER → 2022-08-31 12:34 | Outpatient (BNVA) | payer MEDICAID, SELFPAY | PROVIDERS: PCP Internal Medicine; Visit Provider Obstetrics & Gynecology | DX: N87.1 Moderate cervical dysplasia (principal) | CPT/HCPCS: 99212 ==

== ENCOUNTER 2023-01-10 12:59 | Outpatient (REF) | payer MEDICAID, SELFPAY ==
[2023-01-14 08:08] LABS: HPV 16 RNA NOT DETECTED (NOT DETECTED); HPV mRNA E6/E7 rflx Detected (Not Detected)
== END 2023-01-10 13:00 | disposition home or self-care (01) ==
LOC: HO.LNP 12:59
PROVIDERS: Visit Provider Obstetrics & Gynecology
DX: Z01.419 Encounter for gynecological examination (general) (routine) without abnormal findings (principal); N87.1 Moderate cervical dysplasia; R87.610 Atypical squamous cells of undetermined significance on cytologic smear of cervix (ASC-US); R87.810 Cervical high risk human papillomavirus (HPV) DNA test positive; Z32.02 Encounter for pregnancy test, result negative
CPT/HCPCS: 57454; 81025; 87624; 87625; 88142; 88305

== ENCOUNTER 2023-01-10 12:59 | Outpatient (AMB) | payer MEDICAID, SELFPAY ==
--- NOTE | 2023-01-10 13:06 | MHC.OFFVIS ---
Intake Vital Signs 01/10/23 13:11 Height 5 ft 6 in Weight 210 lb BMI 33.9 BP 118/74 Intake Visit Reasons: Annual/Colpo/co test Intake Note: no concerns Coal Shoveler Required: No Information Interpreted: non-clinical & clinical Information Systems Audit Manager: Information Systems Audit Manager Present ([place] RICH) Accompanied by: Self / Same As Patient Allergies Seasonal Allergies Allergy (Intermediate, Verified 01/10/23 13:17) eye itching/congestion Is last menstrual period known: Yes Last menstrual period: 12/27/22 HPI HPI Comments History of Present Illness Details Presenting for annual exam and co testing/colpo for 12 months follow-up for ABBEY 2. The patient had ABBEY 2 in 09/26 this was followed by 6 months co testing/ colpo biopsy in 07/28 which came back as ascus/HPV positive, colpo biopsy BI ABBEY 1. No complaint PFSH Medical History Acid reflux Anxiety Asthma ABBEY II (cervical intraepithelial neoplasia II) COVID-19 vaccine series completed Depression Gallbladder polyp Surgical History History of esophagogastroduodenoscopy (EGD) History of laparoscopic cholecystectomy (~07/20/21) Hx of hand surgery Family History Mother Breast cancer Maternal Aunt Breast cancer Maternal Grandmother Breast cancer Social History Household Members Other:: one child Are you a primary career developer to a significant other at home: No Do you presently have visiting nurse or other home services: No Alcohol intake: current Alcohol intake frequency: does not drink Patient Tobacco Use Status: Never used Tobacco Substance Use Type: Marijuana Current occupational status: employed Gender identity: Female Female Reproductive History Menstrual Age of Menarche: 14 Date of last menstrual period: 12/27/22 control method: none Total pregnancies: 1 Full term: 1 Number of Living Children: 1 Date of last pap smear: 07/06/22 Review of Systems Const All systems reviewed & are unremarkable except as noted in HPI and below Card Reports as per HPI Resp Reports as per HPI GI Reports as per HPI and Reports no additional complaints Reports as per HPI Physical Exam Vital Signs: Last Vital Signs BP 118/74 09/05/23 13:11 BMI result Body Mass Index 33.9 Const General: cooperative, healthy appearing and comfortable Chest Chest palpation & inspection: normal inspection of the chest and normal palpation of entire chest wall Breast/axilla inspection: normal inspection of the breasts and normal inspection of the axillae Breast/axilla palpation: normal palpation of the breasts, normal palpation of the axillae and no axillary lymphadenopathy Resp Effort & Inspection: normal respiratory effort Auscultation: clear to auscultation bilaterally Percussion: percussion normal Cardio Palpation: normal PMI Rate: regular rate Rhythm: regular rhythm Heart sounds: no murmurs and no rubs Peripheral pulses: Peripheral pulses 2+ throughout GI Inspection: Yes normal to inspection Palpation (GI): Soft to palpation, nontender, no guarding, not rigid and No hepatosplenomegaly present Percussion: Yes normal to percussion Auscultation: normal bowel sounds Rectal Exam - Female: deferred General: Yes bladder normal to palpation External Female Exam: No lesion Speculum Exam - Vagina: normal appearance of the vagina, normal palpation, normal vaginal discharge and not erythematous Speculum Exam - Cervix: normal appearance of the cervix and normal palpation Bimanual exam- vagina & uterus: normal bimanual exam, normal palpation, uterine size normal, bladder normal to palpation, consistency normal and normal palpation Bimanual Exam- Adnexa, other: normal adnexae, no masses and no tenderness Office Procedures Colposcopy Before the procedure was started discussed with the patient the procedure, alternatives & all the risks associated with the procedure (bleeding, infection, injury to vagina, bladder, vessels, possible need for transfusion with all its risks) then patient signed the consent History of ABBEY 2, 12 months co testing/colpo follow-up Urine test done in the office was negative Speculum inserted, acetic acid used Colposcopy done Transformation zone seen, acetowhite lesions identified at 7+3+11+12+1 o?clock, cervical biopsies taken from 7+3+11+12+1 o?clock, ECC done afterwards. Vaginoscopy of the upper vagina showed no evidence of any aceto-white lesions Monsel solution used for hemostasis. The patient tolerated well . At the end the patient was instructed to call if temp>100.4, abdominal pain, n/v, bleeding; The patient was given the following instructions: nothing per vagina, no intercourse or bath tub use. All questions answered the patient verbalized understanding. Instructed the patient to make an appointment in 2 weeks for follow-up This note was generated with a voice recognition program. Some errors may have been overlooked during the review of this note. Sometimes these errors may affect the content or meaning of a given sentence. [id number] of cervix including upper vagina with biopsy and ECC Procedure code (CPT) selection complete Results AMB Test Urine AMB Test Urine Negative Last Edit by Asia Arevalo CMA on 01/10/23 13:32 Assessment & Plan Assessment & Plan (1) ABBEY II (cervical intraepithelial neoplasia II): Comment: 09/25 Pap negative/HPV positive, HPV 16/18/45 negative 09/26 ascus HPV positive, HPV 16/18/45 negative, colpo/ biopsy ABBEY 2-patient preferred observation 07/28 ascus/HPV positive, HPV 16/18/45 negative, colpo biopsy ABBEY 1 Code(s): N87.1 - Moderate cervical dysplasia Plan: Co testing done. Colposcopy done see procedure note. Cotesting done. Counseled the patient about the recommended dietary allowance of 1000 mg of Calcium & 600 IU of vitamin D. The patient was instructed to perform monthly self-breast exams and to schedule 2 week post colpo follow-up appointment and an annual exam in a year; All questions answered and the patient verbalized understanding. Instructed the patient to schedule annual exam in a year Orders: Orders AMB HCG Urine Test Today Z32.02 - Encounter for test, result negative AMB Colposcopy Today N87.1 - Moderate cervical dysplasia Coding Level of Care Code Est Pt Level 3 (06061) Procedure Only Diagnoses ABBEY II (cervical intraepithelial neoplasia II) N87.1 CPT Codes Colposcopy - CPT: 02754-Kmezeekgm of cervix including upper vagina with biopsy and ECC ([id number])
[2023-01-10 13:11] VITALS: BP 118/74; BMI 33.9
== END 2023-01-10 13:44 | disposition home or self-care (01) ==
PROVIDERS: Visit Provider Obstetrics & Gynecology
DX: Z01.419 Encounter for gynecological examination (general) (routine) without abnormal findings (principal); N87.1 Moderate cervical dysplasia
CPT/HCPCS: 57454; 99395

== ENCOUNTER 2023-01-12 17:05 | Emergency (ER) | payer MEDICAID, SELFPAY ==
--- NOTE | 2023-01-12 18:02 | ED.ABDPAIN ---
HPI - Abdominal Pain General Chief Complaint: Abdominal Pain Stated Complaint: upper abd pain all day Time Seen by Provider: 01/12/23 21:23 Related Data Home Medications Medication Instructions Recorded Confirmed loratadine 10 mg tablet 10 mg PO DAILY PRN allergies 01/05/21 07/14/21 albuterol sulfate 90 mcg/actuation 2 puff PO Q4-6H PRN asthma 01/22/21 07/14/21 aerosol inhaler (ProAir HFA) amitriptyline 10 mg tablet 10 mg PO BEDTIME 08/03/21 Previous Rx's Medication Instructions Recorded ibuprofen 600 mg tablet 600 mg PO Q6H PRN pain #30 tabs 07/20/21 Allergies Allergy/AdvReac Type Severity Reaction Status Date / Time Seasonal Allergies Allergy Intermediate eye Verified 01/10/23 13:17 itching/congestion PMFSH Past Medical History Medical History Acid reflux Anxiety Asthma ABBEY II (cervical intraepithelial neoplasia II) COVID-19 vaccine series completed Depression Gallbladder polyp Surgical History History of esophagogastroduodenoscopy (EGD) History of laparoscopic cholecystectomy (~07/20/21) Hx of hand surgery Family History Family History Mother Breast cancer Maternal Aunt Breast cancer Maternal Grandmother Breast cancer Social History Social History Household Members Other:: one child Are you a primary acute care registered nurse to a significant other at home: No Do you presently have visiting nurse or other home services: No Alcohol intake: current Alcohol intake frequency: holidays/special occasions only Patient Tobacco Use Status: Never used Tobacco Smoked in Last 30 Days: No Use of substances other than those prescribed or required for medical reasons: Yes Substance Use Type: Marijuana Substance Use Frequency: Daily Advance Directives: No Advance Directives Information Provided: No Patient : No Current occupational status: employed Gender identity: Female Physical Exam ED Vital Signs: Vital Signs - 24 hr 01/12/23 18:03 01/12/23 20:52 Temperature 100.2 F 98.4 F Pulse Rate 63 58 Respiratory Rate 16 18 Blood Pressure 148/93 H 113/77 Pulse Oximetry 99 99 Oxygen Delivery Method Room Air Room Air BMI result Body Mass Index 34.7 Course Course Course Narrative: This is a rapid medical exam. deferred additional HPI, ROS, PE to primary provider. 32 yo female with past medical history of lap peace 2021, gastritis, depression, anxiety here with upper abdominal pain, nausea. No vomiting, diarrhea, urinary symptoms, fevers. Has had chills. LMP 12/28. Had colposcopy yesterday d/t abnormal PAP. No lower abdominal pain. +temp 100.2 in triage. Will obtain labs, UA, ur preg, testing for flu/covid/rsv. Medical Decision Making Lab Data 01/12/23 18:37 01/12/23 18:37 Labs: Lab Results 01/12/23 01/12/23 Range/Units 18:34 18:37 WBC 13.4 H (4.8-10.8) X10*3/uL RBC 4.37 (4.20-5.50) X10*6/uL Hgb 13.0 (12.0-16.0) g/dl Hct 39.0 (37.0-47.0) % MCV 89.2 (80.0-98.0) fL MCH 29.7 (27.0-33.0) pg MCHC 33.3 (31.0-35.0) g/dl RDW 13.2 (11.0-16.0) % Plt Count 251 (160-400) X10*3/uL MPV 10.6 (9.4-12.3) fL Immature Gran % (Auto) 0.3 (0.0-0.4) % Neut % (Auto) 71.7 (45-73) % Lymph % (Auto) 20.1 (20-40) % [place] % (Auto) 5.1 (2-11) % Eos % (Auto) 2.4 (0-4) % Baso % (Auto) 0.4 (0-2) % Lymph # (Auto) 2.7 (1.2-4.9) X10*3/uL [place] # (Auto) 0.7 (0.1-1.2) X10*3/uL Eos # (Auto) 0.3 (0.0-0.4) X10*3/uL Baso # (Auto) 0.1 (0.0-0.2) X10*3/uL Abs Immat Gran (auto) 0.04 H (0.00-0.03) X10*3/uL Absolute Neuts (auto) 9.6 H (2.0-8.3) x10*3/uL Absolute Nucleated RBC 0.000 (0.0-0.012) X10*3/uL Nucleated RBC % (auto) 0.0 (0.0-0.2) /100WBC Sodium 140 (135-145) mmol/L Potassium 3.2 L (3.3-5.1) mmol/L Chloride 109 H (96-108) mmol/L Carbon Dioxide 25 (22-29) mmol/L Anion Gap 9 L (12-20) BUN 11 (9-16) mg/dL Creatinine 0.78 (0.5-1.4) mg/dL Estim Creat Clear Calc 124.1 Estimated GFR > 60 Random Glucose 105 (60-115) mg/dL Calcium 9.3 (8.4-10.2) mg/dL Total Bilirubin 0.4 (0.0-1.0) mg/dL Direct Bilirubin 0.1 (0.0-0.5) mg/dL AST 15 (5-31) U/L ALT 12 (0-31) U/L Alkaline Phosphatase 86 (39-117) U/L Total Protein 6.8 (6.5-8.0) g/dL Albumin 4.3 (3.5-5.0) g/dL Lipase 14 (8-78) U/L Urine Color Yellow Urine Appearance Clear Urine pH 5.5 (5.0-9.0) Ur Specific [place] >= 1.030 H (1.005-1.025) Urine Protein Negative (Neg-Trace) mg/dL Urine Glucose (UA) Negative (Negative) mg/dL Urine Ketones 15 (Negative) mg/dL Urine Blood Small (1+) H (Negative) Urine Nitrite Negative (Negative) Ur Leukocyte Esterase Negative (Negative) Urine RBC 0-2 (0-2) /HPF Urine WBC 0-5 (0-5) /HPF Ur Squamous Epith Cells 11-20 (0-2) /HPF Urine Bacteria 2+ (None Seen) Hyaline Casts 0-2 (0-2) /LPF Urine Test NEGATIVE (NEGATIVE) Influenza Type A (PCR) NEGATIVE (Negative) Influenza Type B (PCR) NEGATIVE (Negative) RSV RNA Qual (PCR) NEGATIVE (Negative) SARS-CoV-2 RNA (RT-PCR) NEGATIVE (Negative) Medications Administered Discontinued Medications Generic Name Dose Route Start Last Admin Trade Name Freq PRN Reason Stop Dose Admin Acetaminophen 975 mg 01/12/23 18:05 01/12/23 18:08 Acetaminophen 325 Mg Tablet PO 01/12/23 18:06 975 mg ONCE ONE Administration Discharge Plan Discharge Clinical Impression: Abdominal pain Patient Disposition: Elopement Prescriptions: No Action albuterol sulfate [ProAir HFA] 90 mcg/actuation HFA aerosol inhaler 2 puff PO Q4-6H PRN (Reason: asthma) ibuprofen 600 mg tablet 600 mg PO Q6H PRN (Reason: pain) Qty: 30 0RF loratadine 10 mg tablet 10 mg PO DAILY PRN (Reason: allergies) amitriptyline 10 mg tablet 10 mg PO BEDTIME Discharge Date/Time: 01/12/23 22:07
[2023-01-12 18:03] VITALS: BP 148/93; PULSE 63; RESP 16; TEMP 37.9; O2SAT 99; BMI 34.7
[2023-01-12] MEDS: Acetaminophen 325 MG TABLET 975 MG PO (18:08)
[2023-01-12 18:41] LABS: MANUAL DIFF FLAG NO
[2023-01-12 18:44] LABS: Basophils Absolute Auto 0.1 X10*3/uL (0.0-0.2); Basophils Percent Auto 0.4 % (0-2); Eosinophils Absolute Auto 0.3 X10*3/uL (0.0-0.4); Eosinophils Percent Auto 2.4 % (0-4); Imm Gran Abs Auto 0.04 X10*3/uL (0.00-0.03); Imm Gran Pct Auto 0.3 % (0.0-0.4); Lymphocytes Absolute Auto 2.7 X10*3/uL (1.2-4.9); Lymphocytes Percent Auto 20.1 % (20-40); Mean Corpuscular HGB Conc 33.3 g/dl (31.0-35.0); Mean Corpuscular Hemoglobin 29.7 pg (27.0-33.0); Mean Corpuscular Volume 89.2 fL (80.0-98.0); Mean Platelet Volume 10.6 fL (9.4-12.3); Monocytes Absolute Auto 0.7 X10*3/uL (0.1-1.2); Monocytes Percent Auto 5.1 % (2-11); Neutrophils Absolute Auto 9.6 x10*3/uL (2.0-8.3); Neutrophils Percent Auto 71.7 % (45-73); Platelet Count 251 X10*3/uL (160-400); Red Blood Count 4.37 X10*6/uL (4.20-5.50); Red Cell Distribution Width 13.2 % (11.0-16.0); White Blood Count 13.4 X10*3/uL (4.8-10.8)
[2023-01-12 18:45] LABS: Appearance Urine Clear; Color Urine Yellow; Glucose Urine UA Negative (Negative); Leukocyte Esterase Urine Negative (Negative); Nitrite Urine Negative (Negative); PH 5.5 (5.0-9.0); Specific Gravity - Urine >= 1.030 (1.005-1.025); UMIC TRIGGER UACC YES; Urine Blood Small (1+) (Negative); Urine Ketones 15 mg/dL (Negative); Urine Protein Negative (Neg-Trace)
[2023-01-12 18:46] LABS: UPreg QC Valid YES; Urine Pregnancy NEGATIVE (NEGATIVE)
[2023-01-12 18:55] LABS: Bacteria Urine 2+ (None Seen); Hyaline Casts Urine 0-2 /LPF (0-2); RBC Urine 0-2 /HPF (0-2); WBC Urine 0-5 /HPF (0-5)
[2023-01-12 19:05] LABS: Alanine Aminotransferase 12 U/L (0-31); Albumin Level 4.3 g/dL (3.5-5.0); Alkaline Phosphatase 86 U/L (39-117); Anion Gap 9 (12-20); Aspartate Amino Transferase 15 U/L (5-31); Bilirubin Direct 0.1 mg/dL (0.0-0.5); Bilirubin Total 0.4 mg/dL (0.0-1.0); Blood Urea Nitrogen 11 mg/dL (9-16); Calcium 9.3 mg/dL (8.4-10.2); Carbon Dioxide 25 mmol/L (22-29); Chloride 109 mmol/L (96-108); Creatinine Clr Calc Pharmacy 124.1; Estimated Glomerular Filt Rate > 60; Glucose Random 105 mg/dL (60-115); Lipase 14 U/L (8-78); Potassium 3.2 mmol/L (3.3-5.1); Sodium 140 mmol/L (135-145); Total Protein 6.8 g/dL (6.5-8.0)
[2023-01-12 19:21] LABS: Influenza A PCR NEGATIVE (Negative); Influenza B PCR NEGATIVE (Negative); Resp Syncy Virus RNA Qual PCR NEGATIVE (Negative); SARS COV2 PCR INHOUSE NEGATIVE (Negative)
[2023-01-12 20:52] VITALS: BP 113/77; PULSE 58; RESP 18; TEMP 36.9; O2SAT 99
--- NOTE | 2023-01-12 21:19 | PC.NURSE ---
pt a&ox4, vss, reporting improvement in abd pain to 6/10, intermittent sharp upper abd pain, nausea and diarrhea after eating breakfast this morning, hx colposcopy yesterday. pt pending ED provider.
== END 2023-01-12 22:07 | disposition left against medical advice (07) ==
PROVIDERS: Nurse Practitioner Family; Emergency Provider Emergency Medicine; PCP Internal Medicine
DX: R10.9 Unspecified abdominal pain (principal); R50.9 Fever, unspecified; Z20.822 Contact with and (suspected) exposure to COVID-19; Z20.828 Contact with and (suspected) exposure to other viral communicable diseases; Z79.899 Other long term (current) drug therapy
CPT/HCPCS: 0241U; 36415; 80048; 80076; 81001; 81025; 83690; 85025; 99284

== ENCOUNTER 2023-01-13 07:44 | Emergency (ER) | payer MEDICAID, SELFPAY ==
--- NOTE | ~2023-01-13 | CT_ITS ---
EXAMINATION: CT ABDOMEN AND PELVIS WITH CONTRAST CLINICAL INFORMATION: Right lower quadrant pain. COMPARISON: Retroverted ultrasound 01/14/2022 TECHNIQUE: Multidetector volumetric images were obtained from the superior aspect of the liver through the pubic symphysis following administration 85 mL of Omnipaque 350 intravenous contrast. Sagittal and coronal reformatted images were obtained on the technologist's workstation. Oral contrast: No This CT examination was performed using dose optimization techniques as appropriate, variously including the following: *Automated exposure control *Adjustment of mA and/or kV according to patient size (this includes techniques or standardized protocols for targeted exams where dose is matched to indication/reason for exam; i.e. extremities or head) *Use of iterative reconstruction technique DLP: 741 mGy-cm FINDINGS: LUNG BASES: The visualized lung bases are unremarkable. LIVER, GALLBLADDER, AND BILIARY TREE: The liver is normal in size, shape, and attenuation. No focal hepatic lesion or biliary ductal dilatation is present. The gallbladder has been surgically removed. PANCREAS: Unremarkable. SPLEEN: Unremarkable. ADRENAL GLANDS: Unremarkable. KIDNEYS AND URETERS: The kidneys are normal in size, shape, and attenuation. No hydronephrosis, hydroureter, or calculi seen. No perinephric stranding. Is that BLADDER: Unremarkable. GASTROINTESTINAL TRACT: There is scattered stool and gas seen throughout the colon without distention. The small bowel loops are normal caliber. Appendix is normal caliber. There is no free air or free fluid seen. ABDOMINAL WALL: No significant hernia is appreciated. LYMPH NODES: Normal. VASCULAR: Unremarkable. PELVIC VISCERA: The uterus is retroverted. There is small amount of free fluid in the cul-de-sac. No adnexal mass seen. No inflammatory process in the right lower quadrant. There are 2 mm radiopaque density seen in the right pelvis adjacent to the UV junction. Question tiny stones. There however there is no dilatation of the distal ureter at this time. Patient did have echogenic calculi in the lower pole right kidney on previous ultrasound exam 01/07/22. OSSEOUS STRUCTURES: Unremarkable. CT/CT abdomen pelvis w IV con IMPRESSION: 1. No acute intra-abdominal process seen. 2. Mild constipation. Normal appendix. 3. There are 2 mm radiopaque densities in the right pelvis adjacent to the UV junction. Question solitary stone at the right UVJ. However there is no dilatation of distal ureter at this time. Patient did have echogenic calculi in the lower pole right kidney on the previous ultrasound exam 01/07/22. 4. Retroverted uterus with small amount of free fluid in the cul-de-sac. No acute intra-abdominal process seen. Fleischner guidelines were followed.
[2023-01-13 08:00] VITALS: BP 121/71; PULSE 61; RESP 16; TEMP 37; O2SAT 97; BMI 34.7
--- NOTE | 2023-01-13 08:39 | ED_ITS ---
HPI - Abdominal Pain General Chief Complaint: Abdominal Pain Stated Complaint: Abdominal Pain Time Seen by Provider: 01/13/23 08:06 Source: patient Mode of arrival: ambulatory Limitations: no limitations History of Present Illness HPI narrative: 32 yo female with PMH of cholecystectomy 1.5 years ago here has done well. She notes 3 days of upper abdominal pain with nausea and diarrhea no sick contacts, travel, abx use. She states the pain worsened yesterday - she did have a colposcopy on 01/10 but symptoms present before then. No tick bites. She notes the pain was much worse yesterday and she feels run down today. Her temp in ED yesterday she did elope was 100.2 and WBC count was 13. MD elicited complaint: abdominal pain Pertinent past history: other (colposcopy 01/10) Onset (ago): day(s) (3) Pain Consistency: intermittent Location: epigastric and RLQ Severity: moderate Quality: aching Radiation: none Migration to: no migration Exacerbating factors: movement Relieving factors: nothing Context: recent surgery/procedure Associated symptoms: nausea, diarrhea and fever Related Data Home Medications Medication Instructions Recorded Confirmed loratadine 10 mg tablet 10 mg PO DAILY PRN allergies 01/05/21 07/14/21 albuterol sulfate 90 mcg/actuation 2 puff PO Q4-6H PRN asthma 01/22/21 07/14/21 aerosol inhaler (ProAir HFA) amitriptyline 10 mg tablet 10 mg PO BEDTIME 08/03/21 Previous Rx's Medication Instructions Recorded ibuprofen 600 mg tablet 600 mg PO Q6H PRN pain #30 tabs 07/20/21 cefuroxime axetil 250 mg tablet 250 mg PO BID 7 days #14 tabs 01/13/23 fluconazole 150 mg tablet 150 mg PO Q3D 2 doses #2 tabs 01/13/23 (Diflucan) ondansetron 4 mg disintegrating 4 mg PO Q8H PRN nausea and 01/13/23 tablet vomiting #20 tabs Allergies Allergy/AdvReac Type Severity Reaction Status Date / Time Seasonal Allergies Allergy Intermediate eye Verified 01/10/23 13:17 itching/congestion Review of Systems Review of Systems Constitutional : No Weight loss, pos Fever, pos Chills ENT/Mouth : No sore throat, No Rhinorrhea Cardiovascular : No Chest Pain, No SOB, NoEdema Respiratory : No Cough, No Sputum, No Wheezing Gastrointestinal : Positive Nausea, no Vomiting, positive Diarrhea, positive abdominal Pain, No Hematochezia, No Melena Genitourinary : No Dysuria, No Urinary Frequency, No Hematuria, No Urgency Musculoskeletal : No joint pain, No Myalgias, No Joint Swelling Skin : No Skin Lesions, No rash Neuro : No Weakness, No Numbness, No Dizziness, No Headache Psych : No Anxiety/Panic, No Depression All other systems reviewed and are negative. [facility] Past Medical History Attestation statement: The following information was validated with the patient. Source: old records reviewed Medical History ABBEY II (cervical intraepithelial neoplasia II) COVID-19 vaccine series completed Gallbladder polyp Depression Anxiety Asthma Acid reflux Surgical History History of laparoscopic cholecystectomy (~07/20/21) History of esophagogastroduodenoscopy (EGD) Hx of hand surgery Family History Family History Mother Breast cancer Maternal Aunt Breast cancer Maternal Grandmother Breast cancer Social History Social History Household Members Other:: one child Are you a primary health and social care teacher to a significant other at home: No Do you presently have visiting nurse or other home services: No Alcohol intake: current Alcohol intake frequency: holidays/special occasions only Patient Tobacco Use Status: Never used Tobacco Substance Use Type: Marijuana Advance Directives: No Advance Directives Information Provided: Yes Current occupational status: employed Gender identity: Female Physical Exam ED Vital Signs: Vital Signs - 24 hr 01/13/23 08:00 01/13/23 09:47 Temperature 98.6 F 98.5 F Pulse Rate 61 56 Respiratory Rate 16 16 Blood Pressure 121/71 120/73 Pulse Oximetry 97 99 Oxygen Delivery Method Room Air Room Air BMI result Body Mass Index 34.7 Appearance: Alert. Oriented X3. No acute distress. Eyes: Pupils equal, round and reactive to light. ENT: Pharynx normal. Neck: Normal inspection. Neck supple. CVS: Normal heart rate and rhythm. Pulses normal. Respiratory: No respiratory distress. Breath sounds normal. Abdomen: Soft and moderate RLQ pain but no rebound Skin: Skin warm and dry. Normal skin color. Normal skin turgor. Extremities: No lower extremity edema. No calf ttp Neuro: Oriented X 3. No motor deficit. No sensory deficit. Course Course Course Narrative: given fever yesterday and stone will treat as possible stone and UTI Medical Decision Making Medical Decision Making [facility] Narrative: 32 yo female with PMH of prior cholecystectomy, renal colic recent coloposcopy 01/10 who had some sypmtoms of nausea, diarrhea abdominal pain that was before procedure pain did worsen and she had a temp of 100.2 with WBC 13 yesterday after elopement. She returns as she feels run down. At this time she has RLQ but no vaginal pain or discharge and no suprapubic pain. I am going to give IVF, repeat labs, toradol/zofran and CT scan for appendicitis, renal colic or infection from recent procedure. Differential Diagnosis Differential Diagnoses: The differential diagnosis associated with the presentation includes appendicitis, UTI, viral syndrome, no vaginal discharge or pain to suspect infection from colposcopy Admission/Observation Consideration of admission/observation: Escalation of care including admission/observation considered stable for DC no acute findings possible R UVJ stone , UA bacteremic Lab Data [facility] Lab Attestation statement: I reviewed the patient's lab results. 01/13/23 08:39 01/13/23 08:39 Labs: Lab Results 01/13/23 01/13/23 01/13/23 Range/Units 08:39 09:04 11:30 WBC 9.4 (4.8-10.8) X10*3/uL RBC 4.49 (4.20-5.50) X10*6/uL Hgb 13.3 (12.0-16.0) g/dl Hct 40.1 (37.0-47.0) % MCV 89.3 (80.0-98.0) fL MCH 29.6 (27.0-33.0) pg MCHC 33.2 (31.0-35.0) g/dl RDW 13.2 (11.0-16.0) % Plt Count 251 (160-400) X10*3/uL MPV 10.9 (9.4-12.3) fL Immature Gran % (Auto) 0.4 (0.0-0.4) % Neut % (Auto) 70.7 (45-73) % Lymph % (Auto) 20.7 (20-40) % Curry % (Auto) 5.1 (2-11) % Eos % (Auto) 2.8 (0-4) % Baso % (Auto) 0.3 (0-2) % Lymph # (Auto) 1.9 (1.2-4.9) X10*3/uL Curry # (Auto) 0.5 (0.1-1.2) X10*3/uL Eos # (Auto) 0.3 (0.0-0.4) X10*3/uL Baso # (Auto) 0.0 (0.0-0.2) X10*3/uL Abs Immat Gran (auto) 0.04 H (0.00-0.03) X10*3/uL Absolute Neuts (auto) 6.6 (2.0-8.3) x10*3/uL Absolute Nucleated RBC 0.000 (0.0-0.012) X10*3/uL Nucleated RBC % (auto) 0.0 (0.0-0.2) /100WBC Sodium 139 (135-145) mmol/L Potassium 3.5 (3.3-5.1) mmol/L Chloride 107 (96-108) mmol/L Carbon Dioxide 25 (22-29) mmol/L Anion Gap 11 L (12-20) BUN 10 (9-16) mg/dL Creatinine 0.80 (0.5-1.4) mg/dL Estim Creat Clear Calc 121.0 Estimated GFR > 60 Random Glucose 97 (60-115) mg/dL Lactic Acid 0.7 (0.5-2.0) mmol/L Calcium 9.0 (8.4-10.2) mg/dL Magnesium 1.9 (1.6-2.6) mg/dL Total Bilirubin 0.8 (0.0-1.0) mg/dL Direct Bilirubin 0.2 (0.0-0.5) mg/dL AST 14 (5-31) U/L ALT 11 (0-31) U/L Alkaline Phosphatase 83 (39-117) U/L Total Protein 6.7 (6.5-8.0) g/dL Albumin 4.1 (3.5-5.0) g/dL Lipase 13 (8-78) U/L Beta HCG, Quant < 2 mIU/mL Urine Color Yellow Urine Appearance Cloudy Urine pH 6.0 (5.0-9.0) Ur Specific [place] >= 1.030 H (1.005-1.025) Urine Protein Trace (Neg-Trace) mg/dL Urine Glucose (UA) Negative (Negative) mg/dL Urine Ketones 15 (Negative) mg/dL Urine Blood Moderate (2+) H (Negative) Urine Nitrite Negative (Negative) Ur Leukocyte Esterase Small (1+) H (Negative) Urine RBC 0-2 (0-2) /HPF Urine WBC 0-5 (0-5) /HPF Ur Squamous Epith Cells 11-20 (0-2) /HPF Urine Bacteria 4+ (None Seen) Hyaline Casts 0-2 (0-2) /LPF COVID-19 (NARCISO) Negative (Negative) COVID-19 Clin Com See Note Independent Interpretation I performed an independent interpretation of an: CT Scan (UVJ stone) Radiology Impression Discussion of test interpretation with radiology: I have reviewed the radiologist's reading. External Record Review External record reviewed: Office record Prescription Management I considered prescription management with: Antibiotic and Other Medications Administered Discontinued Medications Generic Name Dose Route Start Last Admin Trade Name Simq PRN Reason Stop Dose Admin Sodium Chloride 1,000 mls @ 999 mls/hr 01/13/23 08:30 01/13/23 09:46 Ns IVCONT 01/13/23 09:30 Infused .Q1H1M SAMUEL Infusion Iohexol 85 ml 01/13/23 10:30 01/13/23 10:30 Iohexol 350 Mg/Ml 100 Ml Infus..Btl IV 01/13/23 10:31 85 ml ONCE ONE Administration Ketorolac Tromethamine 15 mg 01/13/23 08:25 01/13/23 08:45 Ketorolac Tromethamine 15 Mg/Ml Vial IVPUSH 01/13/23 08:26 15 mg ONCE ONE Administration Ondansetron HCl 4 mg 01/13/23 08:25 01/13/23 08:45 Ondansetron Hcl 4 Mg/2 Ml Vial IVPUSH 01/13/23 08:26 4 mg ONCE ONE Administration Discharge Plan Discharge Clinical Impression: Ureterolithiasis Patient Disposition: Home, Self-Care Instructions: Ureteral Stones (ED) Additional Instructions: return to ED for any worsening symptoms or concerns return for worsening pain, fevers, vomiting, severe pain or inability to take medications. take a probiotic while on antibiotic Prescriptions: New cefuroxime axetil 250 mg tablet 250 mg PO BID 7 Days Qty: 14 0RF ondansetron 4 mg tablet,disintegrating 4 mg PO Q8H PRN (Reason: nausea and vomiting) Qty: 20 0RF fluconazole [Diflucan] 150 mg tablet 150 mg PO Q3D 0 Days Qty: 2 0RF Rx Instructions: may repeat second dose 72 hrs after first dose if symptoms persist No Action albuterol sulfate [ProAir HFA] 90 mcg/actuation HFA aerosol inhaler 2 puff PO Q4-6H PRN (Reason: asthma) ibuprofen 600 mg tablet 600 mg PO Q6H PRN (Reason: pain) Qty: 30 0RF loratadine 10 mg tablet 10 mg PO DAILY PRN (Reason: allergies) amitriptyline 10 mg tablet 10 mg PO BEDTIME
[2023-01-13] MEDS: 0.9 % Sodium Chloride 1,000 ML 999 ML IVCONT (08:45)
[2023-01-13] MEDS: ondansetron HCL 4 MG/2 ML VIAL IVPUSH (08:45)
[2023-01-13] MEDS: Ketorolac Tromethamine 15 MG/ML VIAL IVPUSH (08:45)
[2023-01-13 08:46] LABS: MANUAL DIFF FLAG NO
[2023-01-13 08:50] LABS: Basophils Percent Auto 0.3 % (0-2); Eosinophils Absolute Auto 0.3 X10*3/uL (0.0-0.4); Eosinophils Percent Auto 2.8 % (0-4); Hematocrit 40.1 % (37.0-47.0); Hemoglobin 13.3 g/dl (12.0-16.0); Imm Gran Abs Auto 0.04 X10*3/uL (0.00-0.03); Imm Gran Pct Auto 0.4 % (0.0-0.4); Lymphocytes Absolute Auto 1.9 X10*3/uL (1.2-4.9); Lymphocytes Percent Auto 20.7 % (20-40); Mean Corpuscular HGB Conc 33.2 g/dl (31.0-35.0); Mean Corpuscular Hemoglobin 29.6 pg (27.0-33.0); Mean Corpuscular Volume 89.3 fL (80.0-98.0); Mean Platelet Volume 10.9 fL (9.4-12.3); Monocytes Absolute Auto 0.5 X10*3/uL (0.1-1.2); Monocytes Percent Auto 5.1 % (2-11); Neutrophils Absolute Auto 6.6 x10*3/uL (2.0-8.3); Neutrophils Percent Auto 70.7 % (45-73); Platelet Count 251 X10*3/uL (160-400); Red Blood Count 4.49 X10*6/uL (4.20-5.50); Red Cell Distribution Width 13.2 % (11.0-16.0); White Blood Count 9.4 X10*3/uL (4.8-10.8)
[2023-01-13 09:01] LABS: Lactic Acid 0.7 mmol/L (0.5-2.0)
[2023-01-13 09:07] LABS: Alanine Aminotransferase 11 U/L (0-31); Albumin Level 4.1 g/dL (3.5-5.0); Alkaline Phosphatase 83 U/L (39-117); Anion Gap 11 (12-20); Aspartate Amino Transferase 14 U/L (5-31); Bilirubin Direct 0.2 mg/dL (0.0-0.5); Bilirubin Total 0.8 mg/dL (0.0-1.0); Blood Urea Nitrogen 10 mg/dL (9-16); Carbon Dioxide 25 mmol/L (22-29); Chloride 107 mmol/L (96-108); Estimated Glomerular Filt Rate > 60; Glucose Random 97 mg/dL (60-115); Lipase 13 U/L (8-78); Magnesium 1.9 mg/dL (1.6-2.6); Potassium 3.5 mmol/L (3.3-5.1); Sodium 139 mmol/L (135-145); Total Protein 6.7 g/dL (6.5-8.0)
[2023-01-13 09:17] LABS: HCG Quantitative < 2 mIU/mL
[2023-01-13 09:22] LABS: COVID-19 Test Negative (Negative); IDNOW Serial# BCCEAD1C
[2023-01-13 09:47] VITALS: BP 120/73; PULSE 56; RESP 16; TEMP 36.9; O2SAT 99
--- NOTE | 2023-01-13 09:50 | PC.NURSE ---
alert and oriented, respirations even and unlabored. iv fluids infused, reports improvement in her pain. awaiting CT scan results at this time, call mendez within reach.
[2023-01-13] MEDS: iohexoL 350 MG/ML 100 ML INFUS..BTL 85 ML IV (10:30)
[2023-01-13 11:37] LABS: Appearance Urine Cloudy; Color Urine Yellow; Glucose Urine UA Negative (Negative); Leukocyte Esterase Urine Small (1+) (Negative); Nitrite Urine Negative (Negative); Specific Gravity - Urine >= 1.030 (1.005-1.025); UMIC TRIGGER UACC YES; Urine Blood Moderate (2+) (Negative); Urine Ketones 15 mg/dL (Negative); Urine Protein Trace mg/dL (Neg-Trace)
[2023-01-13 11:46] LABS: Bacteria Urine 4+ (None Seen); Hyaline Casts Urine 0-2 /LPF (0-2); RBC Urine 0-2 /HPF (0-2); UACC Culture Trigger YES; WBC Urine 0-5 /HPF (0-5)
== END 2023-01-13 13:45 | disposition home or self-care (01) ==
PROVIDERS: Emergency Provider Emergency Medicine; PCP Internal Medicine
DX: N20.2 Calculus of kidney with calculus of ureter (principal); F12.90 Cannabis use, unspecified, uncomplicated; N87.1 Moderate cervical dysplasia; Z90.49 Acquired absence of other specified parts of digestive tract; Z79.899 Other long term (current) drug therapy
CPT/HCPCS: 36415; 74177; 80048; 80076; 81001; 83605; 83690; 83735; 84702; 85025; 87086; 87147; 87635; 96361; 96374; 96375; 99284; 99285; J1885; J2405; Q9967

== ENCOUNTER 2023-01-16 08:22 | Outpatient (REF) | payer MEDICAID, SELFPAY ==
--- NOTE | ~2023-01-16 | US_ITS ---
EXAMINATION: US RETROPERITONEAL LIMITED (RENAL ONLY) CLINICAL INFORMATION: Calculus of kidney. COMPARISON: CT abdomen and pelvis with contrast 01/13/2023. Ultrasound retroperitoneal limited (renal only) 01/07/2022 TECHNIQUE: Real-time imaging of the kidneys. FINDINGS: RIGHT KIDNEY: 9.8 x 3.8 x 6.2 cm (SAG x AP x TRV). The kidney is normal in size, contour, and echogenicity. Renal cortical thickness is normal. No focal parenchymal lesions or hydronephrosis. 5 mm nonobstructing lower pole renal stone, previously 3 mm on prior ultrasound increased in size from prior. LEFT KIDNEY: 11.2 x 4.7 x 5.3 cm (SAG x AP x TRV). The kidney is normal in size, contour, and echogenicity. Renal cortical thickness is normal. No calculi or focal parenchymal lesions. No hydronephrosis. US/US renal BI IMPRESSION: A 5 mm nonobstructing right lower pole renal stone, previously 3 mm increased in size from prior ultrasound 01/07/2022.
== END 2023-01-16 08:23 | disposition home or self-care (01) ==
LOC: HO.US 08:22
PROVIDERS: Visit Provider Urology
DX: N20.0 Calculus of kidney (principal)
CPT/HCPCS: 76775

== ENCOUNTER 2023-02-01 14:02 | Outpatient (AMB) | payer MEDICAID, SELFPAY ==
--- NOTE | 2023-02-01 14:04 | MHC.OFFVIS ---
Intake Intake Visit Reasons: follow up/kidney stone/US(SET) Intake Note: Patient presents today for a follow-up on Kidney Stones, US Results Completed on 01/16/2023: Meds- None Allergies to Antibiotic- No Known Allergies Blood Thinner- None Patient Symptoms: Patient was at the ER recently for Kidney Stones Automotive Sales Manager Required: No Accompanied by: Self / Same As Patient Allergies Seasonal Allergies Allergy (Intermediate, Verified 02/07/23 09:05) eye itching/congestion HPI HPI Comments History of Present Illness Details Linda is a 32-year-old female who presents today to the office for a follow-up. 02/01/2023? He is followed today for kidney stone/US. She was seen in ED on 01/13/2023 for ureterolithiasis. The patient was advised to return to clinic for worsening pain, fever, vomiting, severe pain, or inability to take medications at that time. He was advised to take a probiotic while on antibiotics.?Patient states that she was seen in ER for abdominal pain. She states that since over the last week, the symptoms have been resolved. The patient feels she passed the stone. I reviewed the renal US results from 01/16/2023 revealed a 5 mm nonobstructing right lower pole renal stone, previously 3 [address] I reviewed the CT abdomen/pelvis results from 01/13/2023 revealed no acute intra-abdominal process seen. There are 2 mm radiopaque densities in the right pelvis adjacent to the UV junction. Evaluation today?UA? leukocytes: negative; blood: negative. Plan: Encouraged the patient to consume adequate amount of fluids. Vitamin B6 100 mg daily was ordered. Follow-up in one year, US prior. Advised the patient to return or call to the office if symptoms get worsens. [facility] Medical History (Updated 02/07/23 @ 09:16 by Flo Friedman MD) ABBEY II (cervical intraepithelial neoplasia II) COVID-19 vaccine series completed Gallbladder polyp Depression Anxiety Asthma Acid reflux Surgical History History of laparoscopic cholecystectomy (~07/20/21) History of esophagogastroduodenoscopy (EGD) Hx of hand surgery Family History Mother Breast cancer Maternal Aunt Breast cancer Maternal Grandmother Breast cancer Social History Household Members Other:: one child Are you a primary home care rn to a significant other at home: No Do you presently have visiting nurse or other home services: No Alcohol intake: current Alcohol intake frequency: holidays/special occasions only Patient Tobacco Use Status: Never used Tobacco Substance Use Type: Marijuana Current occupational status: employed Gender identity: Female Female Reproductive History Menstrual Age of Menarche: 14 Review of Systems Const All systems reviewed & are unremarkable except as noted in HPI and below Reports no additional complaints Eyes Reports no additional complaints ENT Reports no additional complaints Card Denies dyspnea Resp Denies cough and Denies dyspnea GI Reports no additional complaints Reports no additional complaints Musc Reports no additional complaints Skin/Breast Denies rash and Denies unusual bruising Neuro Reports no additional complaints Psych Reports no additional complaints Endo Reports no additional complaints Paul/Lymph Reports no additional complaints Aller/Immun Reports no additional complaints Results AMB Urinalysis, Automated UA Leukoctes 0 Francisco/uL Last Edit by LAYLA Jimenez on 02/01/23 14:32 UA Nitrite Negative Last Edit by Farzana Bishop [facility] on 02/01/23 14:32 UA Urobilinogen 0.2 mg/dL Last Edit by Farzana Bishop Jennifer on 02/01/23 14:32 UA Protein 0 mg/dL Last Edit by Farzana Bishop [facility] on 02/01/23 14:32 UA pH 6.5 Last Edit by Farzana Bishop [facility] on 02/01/23 14:32 UA Blood 0 Charles/uL Last Edit by Farzana Bishop [facility] on 02/01/23 14:32 UA Specific [place] 1.020 Last Edit by Farzana Bishop Jennifer on 02/01/23 14:32 UA Ketone Negative Last Edit by LAYLA Jimenez on 02/01/23 14:32 UA Bilirubin 0 mg/dL Last Edit by Farzana Bishop [facility] on 02/01/23 14:32 UA Glucose 0 mg/dL Last Edit by Farzana Bishop [facility] on 02/01/23 14:32 Results Reviewed Results Reviewed: Laboratory Last Values Urine pH (Auto) 6.5 02/01/23 14:26 Specific [place] (Auto) 1.020 02/01/23 14:26 Urine Protein (Auto) 0 mg/dL 02/01/23 14:26 Glucose (UA)(Auto) 0 mg/dL 02/01/23 14:26 Urine Ketones (Auto) Negative 02/01/23 14:26 Urine Blood (Auto) 0 Charles/uL 02/01/23 14:26 Urine Nitrite (Auto) Negative 02/01/23 14:26 Urine Bilirubin (Auto) 0 mg/dL 02/01/23 14:26 Urine Urobilinogen (Auto) 0.2 mg/dL 02/01/23 14:26 Leukocyte Esterase (Auto) 0 Francisco/uL 02/01/23 14:26 Date of Service: 01/13/23 EXAMINATION: CT ABDOMEN AND PELVIS WITH CONTRAST?? CLINICAL INFORMATION: Right lower quadrant pain.?? COMPARISON: Retroverted ultrasound 01/14/2022 FINDINGS: LUNG BASES: The visualized lung bases are unremarkable.?? LIVER, GALLBLADDER, AND BILIARY TREE: The liver is normal in size, shape, and attenuation. No focal hepatic lesion or biliary ductal dilatation is present. The gallbladder has been surgically removed.?? PANCREAS: Unremarkable.?? SPLEEN: Unremarkable.?? ADRENAL GLANDS: Unremarkable.?? KIDNEYS AND URETERS: The kidneys are normal in size, shape, and attenuation. No hydronephrosis, hydroureter, or calculi seen. No perinephric stranding. Is that BLADDER: Unremarkable.?? GASTROINTESTINAL TRACT: There is scattered stool and gas seen throughout the colon without distention. The small bowel loops are normal caliber. Appendix is normal caliber. There is no free air or free fluid seen. ABDOMINAL WALL: No significant hernia is appreciated.?? LYMPH NODES: Normal. VASCULAR: Unremarkable. PELVIC VISCERA: The uterus is retroverted. There is small amount of free fluid in the cul-de-sac. No adnexal mass seen. No inflammatory process in the right lower quadrant. There are 2 mm radiopaque density seen in the right pelvis adjacent to the UV junction. Question tiny stones. There however there is no dilatation of the distal ureter at this time. Patient did have echogenic calculi in the lower pole right kidney on previous ultrasound exam 01/07/22. OSSEOUS STRUCTURES: Unremarkable.?? IMPRESSION: 1.? No acute intra-abdominal process seen. 2.? Mild constipation. Normal appendix. 3.? There are 2 mm radiopaque densities in the right pelvis adjacent to the UV junction. Question solitary stone at the right UVJ. However there is no dilatation of distal ureter at this time. Patient did have echogenic calculi in the lower pole right kidney on the previous ultrasound exam 01/07/22. 4.? Retroverted uterus with small amount of free fluid in the cul-de-sac. No acute intra-abdominal process seen. Date of Service: 01/16/23 EXAMINATION:? US RETROPERITONEAL LIMITED (RENAL ONLY) CLINICAL INFORMATION: Calculus of kidney. COMPARISON:? CT abdomen and pelvis with contrast 01/13/2023. Ultrasound retroperitoneal limited (renal only) 01/07/2022?? FINDINGS: RIGHT KIDNEY: 9.8 x 3.8 x 6.2 cm (SAG x AP x TRV). The kidney is normal in size, contour, and echogenicity. Renal cortical thickness is normal. No focal parenchymal lesions or hydronephrosis. 5 mm nonobstructing lower pole renal stone, previously 3 mm on prior ultrasound increased in size from prior. LEFT KIDNEY: 11.2 x 4.7 x 5.3 cm (SAG x AP x TRV). The kidney is normal in size, contour, and echogenicity. Renal cortical thickness is normal. No calculi or focal parenchymal lesions. No hydronephrosis. IMPRESSION:? A 5 mm nonobstructing right lower pole renal stone, previously 3 mm increased in size from prior ultrasound 01/07/2022. Assessment & Plan Assessment & Plan (1) Renal calculi: Code(s): N20.0 - Calculus of kidney (2) Ureterolithiasis: Code(s): N20.1 - Calculus of ureter Plan Encouraged the patient to consume adequate amount of fluids. Vitamin B6 100 mg daily was ordered.? Follow-up in one year, US prior.? Advised the patient to return or call to the office if symptoms get worsens.? Orders: Orders AMB Urinalysis Automated 02/01/23 Z13.9 - Encounter for screening, unspecified US renal BI 10 Months N20.0 - Calculus of kidney Medications: New pyridoxine (vitamin B6) 100 mg PO DAILY 90 tabs 3RF Patient Instructions: The patient had an opportunity to ask questions regarding treatment plan. All questions were answered. Imaging, Laboratory studies and physical exam results were discussed and reviewed in detail. No major barriers to understanding were identified. The patient expressed understanding and agreement with the above treatment plan.? ? ? The patient is aware they should contact our office by phone for worsening of their current condition or the appearance of new symptoms. Compliance is encouraged with any medications and followup testing that is ordered.? ? ? It is a privilege to be allowed the opportunity to participate in the urologic care of your patient. If you have any questions or concerns regarding treatment for the above conditions please do not hesitate to contact me. The office telephone contact is [phone].? ? ? This note is constructed in part using voice recognition software. While every effort has been made to ensure accuracy roustabout crew pusher errors may have been included.? ? ? Yours sincerely,? ? ? Blake Esparza MD? Coding Level of Care Code Est Pt Level 4 (05636) Diagnoses Renal calculi N20.0 Ureterolithiasis N20.1
== END 2023-02-01 14:45 | disposition home or self-care (01) ==
PROVIDERS: PCP Internal Medicine; Visit Provider Urology
DX: N20.0 Calculus of kidney (principal); N20.1 Calculus of ureter
CPT/HCPCS: 99214

== ENCOUNTER → 2023-02-01 14:02 | Outpatient (BNVA) | payer MEDICAID, SELFPAY | PROVIDERS: Visit Provider Urology | DX: N20.0 Calculus of kidney (principal); N20.1 Calculus of ureter | CPT/HCPCS: 81003; 99212 ==

== ENCOUNTER 2023-02-07 08:59 | Outpatient (AMB) | payer MEDICAID, SELFPAY ==
--- NOTE | 2023-02-07 09:03 | MHC.OFFVIS ---
Intake Vital Signs 02/07/23 09:05 Height 5 ft 6 in Weight 213 lb 13.574 oz BMI 34.5 BP 110/60 Intake Visit Reasons: Colpo results Reflexologist Required: No Information Interpreted: non-clinical & clinical Accompanied by: Self / Same As Patient Allergies Seasonal Allergies Allergy (Intermediate, Verified 02/07/23 09:05) eye itching/congestion HPI HPI Comments History of Present Illness Details Presenting for post colposcopy follow-up regarding ABBEY 2 biopsy proven in 11/26, the patient decided to proceed with observation as management of ABBEY 2. In 07/28 co testing was LSIL/HPV positive, colpo/biopsy/ECC showed ABBEY 1 In 01/28 Repeat co testing showed LSIL/HPV positive, colpo/biopsy/ECC were negative [facility] Medical History (Updated 02/07/23 @ 09:16 by Flo Friedman MD) ABBEY II (cervical intraepithelial neoplasia II) COVID-19 vaccine series completed Gallbladder polyp Depression Anxiety Asthma Acid reflux Surgical History History of laparoscopic cholecystectomy (~07/20/21) History of esophagogastroduodenoscopy (EGD) Hx of hand surgery Family History Mother Breast cancer Maternal Aunt Breast cancer Maternal Grandmother Breast cancer Social History Household Members Other:: one child Are you a primary dog daycare provider to a significant other at home: No Do you presently have visiting nurse or other home services: No Alcohol intake: current Alcohol intake frequency: holidays/special occasions only Patient Tobacco Use Status: Never used Tobacco Substance Use Type: Marijuana Current occupational status: employed Gender identity: Female Female Reproductive History Menstrual Age of Menarche: 14 Review of Systems Const All systems reviewed & are unremarkable except as noted in HPI and below Reports as per HPI and Reports no additional complaints GI Reports no additional complaints Reports no additional complaints Assessment & Plan Assessment & Plan (1) ABBEY II (cervical intraepithelial neoplasia II): Comment: 09/25 Pap negative/HPV positive, HPV 16/18/45 negative 09/26 ascus HPV positive, HPV 16/18/45 negative, colpo/ biopsy ABBEY 2-patient preferred observation 07/28 ascus/HPV positive, HPV 16/18/45 negative, colpo biopsy ABBEY 1 01/28 LSIL/HPV positive, colpo biopsy ECC negative Code(s): N87.1 - Moderate cervical dysplasia Plan: Discussed with the patient the pathology results of the co testing showing LSIL/HPV positive, and the pathology results of colposcopy biopsies & endocervical curettage ( negative). Discussed with the patient the sensitivity specificity, positive and negative predictive value in detecting cervical cancer in addition discussed the regression, persistence and progression rates. Recommended co-testing in 12 months. Instructions given to the patient to schedule a co test appointment in 1 year. All questions answered the patient verbalized understanding. Coding Level of Care Code Est Pt Level 3 (67837) Diagnoses ABBEY II (cervical intraepithelial neoplasia II) N87.1
[2023-02-07 09:05] VITALS: BP 110/60; BMI 34.5
== END 2023-02-07 10:16 | disposition home or self-care (01) ==
PROVIDERS: PCP Internal Medicine; Visit Provider Obstetrics & Gynecology
DX: N87.1 Moderate cervical dysplasia (principal)
CPT/HCPCS: 99213

== ENCOUNTER → 2023-02-07 08:59 | Outpatient (BNVA) | payer MEDICAID, SELFPAY | PROVIDERS: PCP Internal Medicine; Visit Provider Obstetrics & Gynecology | DX: N87.1 Moderate cervical dysplasia (principal); Z98.890 Other specified postprocedural states | CPT/HCPCS: 99212 ==

== ENCOUNTER 2023-07-20 08:59 | Outpatient (AMB) | payer MEDICAID, SELFPAY ==
[2023-07-20 09:16] VITALS: BP 110/72; BMI 34.9
--- NOTE | 2023-07-20 09:16 | A.OFFVIS_ITS ---
Intake Vital Signs 07/20/23 09:16 Height 5 ft 6 in Weight 98 kg BMI 34.9 BP 110/72 Intake Visit Reasons: co-testing/colpo Tool Filer Required: No Information Interpreted: non-clinical & clinical Senior Quality Methods Specialist: Senior Quality Methods Specialist Present (Asia RICH) Accompanied by: Self / Same As Patient Allergies Seasonal Allergies Allergy (Intermediate, Verified 07/20/23 09:17) eye itching/congestion Is last menstrual period known: Yes Last menstrual period: 07/10/23 PFSH Medical History ABBEY II (cervical intraepithelial neoplasia II) COVID-19 vaccine series completed Gallbladder polyp Depression Anxiety Asthma Acid reflux Surgical History History of laparoscopic cholecystectomy (~07/20/21) History of esophagogastroduodenoscopy (EGD) Hx of hand surgery Family History Mother Breast cancer Maternal Aunt Breast cancer Maternal Grandmother Breast cancer Social History Household Members Other:: one child Are you a primary managed care coordinator to a significant other at home: No Do you presently have visiting nurse or other home services: No Alcohol intake: current Alcohol intake frequency: holidays/special occasions only Patient Tobacco Use Status: Never used Tobacco Substance Use Type: Marijuana Current occupational status: employed Gender identity: Female Female Reproductive History Menstrual Age of Menarche: 14 Date of last menstrual period: 07/10/23 Results AMB Test Urine AMB Test Urine Negative Last Edit by Asia Arevalo CMA on 09:18 Assessment & Plan Assessment & Plan Orders: Orders AMB HCG Urine Test Today Z32.02 - Encounter for test, result negative Coding
== END 2023-07-20 09:38 | disposition left against medical advice (07) ==
PROVIDERS: PCP Internal Medicine; Visit Provider Obstetrics & Gynecology
DX: Z32.02 Encounter for pregnancy test, result negative (principal)

== ENCOUNTER → 2023-07-20 08:59 | Outpatient (BNVA) | payer MEDICAID, SELFPAY | PROVIDERS: PCP Internal Medicine; Visit Provider Obstetrics & Gynecology | DX: Z32.02 Encounter for pregnancy test, result negative (principal) | CPT/HCPCS: 81025 ==

== ENCOUNTER 2023-12-07 07:56 | Outpatient (REF) | payer MEDICAID, SELFPAY ==
--- NOTE | ~2023-12-07 | US_ITS ---
EXAMINATION: US RETROPERITONEAL LIMITED (RENAL ONLY) CLINICAL INFORMATION: Calculus of kidney. COMPARISON: Renal ultrasound 01/16/2023 and 01/07/2022. CT abdomen and pelvis 01/13/2023. MRI abdomen 06/04/2021. TECHNIQUE: Real-time imaging of the kidneys. Limited visualization due to bowel gas. FINDINGS: RIGHT KIDNEY: 9.8 x 4.5 x 6.0 cm (SAG x AP x TRV). No hydronephrosis. Renal cortical thickness is normal. Limited visualization. Right renal 7 mm lower pole calculus. Right uvi-be-itncz pole 4 mm echogenic cortical focus difficult to characterize due to small size and limited visualization, possibly representing an angiomyolipoma and not appreciated on prior exams. LEFT KIDNEY: 10.8 x 5.2 x 5.2 cm (SAG x AP x TRV). No hydronephrosis. No renal calculi. Renal cortical thickness is normal. Limited visualization. US/US renal BI IMPRESSION: 1. Right renal 7 mm lower pole calculus. No hydronephrosis. 2. Right qmh-et-cglhc pole 4 mm echogenic cortical focus difficult to characterize due to small size and limited visualization, possibly representing an angiomyolipoma and not appreciated on prior exams.
== END 2023-12-07 07:57 | disposition home or self-care (01) ==
LOC: HO.US 07:56
PROVIDERS: PCP Internal Medicine; Visit Provider Urology
DX: N20.0 Calculus of kidney (principal)
CPT/HCPCS: 76775

== ENCOUNTER 2023-12-21 07:43 | Outpatient (RCR) | payer MEDICAID, SELFPAY | END 2024-01-17 08:29 | disposition home or self-care (01) | LOC: HO.PT 07:43 | PROVIDERS: PCP Internal Medicine; Visit Provider Internal Medicine | DX: M54.2 Cervicalgia (principal); M54.9 Dorsalgia, unspecified | CPT/HCPCS: 97110; 97140; 97161 ==

== ENCOUNTER 2023-12-26 15:21 | Emergency (ER) | payer MEDICAID, SELFPAY ==
--- NOTE | ~2023-12-26 | XR_ITS ---
EXAMINATION: XR ANKLE, LEFT XR FOOT, RIGHT CLINICAL INFORMATION: Fall COMPARISON: None available. TECHNIQUE: 3 views of the left ankle 3 views of the right foot FINDINGS: RIGHT FOOT: Nondisplaced fracture involving the base of the fifth metatarsal. Correlation with point tenderness. Plantar calcaneal heel spur. Joint space alignment are maintained. Soft tissue swelling overlying the dorsum of the midfoot. LEFT ANKLE: No acute visible fracture or dislocation. The ankle mortise is symmetric. Tiny plantar calcaneal heel spur. Very slight enthesopathy at the Achilles tendon insertion site. Joint spaces and alignment are otherwise maintained. Prominent soft tissue swelling about the ankle greatest at its lateral aspect. XR/XR foot RT min 3V IMPRESSION: 1. Nondisplaced fracture involving the base of the right fifth metatarsal. Correlation with point tenderness. 2. Soft tissue swelling overlying the dorsum of the right midfoot. 3. No acute visible fracture or dislocation of the left ankle. 4. Prominent soft tissue swelling about the left ankle greatest at its lateral aspect. Electronically signed by: Armdia Hodges MD 12/26/2023 04:37 PM EDT
--- NOTE | ~2023-12-26 | XR_ITS ---
EXAMINATION: XR ANKLE, LEFT XR FOOT, RIGHT CLINICAL INFORMATION: Fall COMPARISON: None available. TECHNIQUE: 3 views of the left ankle 3 views of the right foot FINDINGS: RIGHT FOOT: Nondisplaced fracture involving the base of the fifth metatarsal. Correlation with point tenderness. Plantar calcaneal heel spur. Joint space alignment are maintained. Soft tissue swelling overlying the dorsum of the midfoot. LEFT ANKLE: No acute visible fracture or dislocation. The ankle mortise is symmetric. Tiny plantar calcaneal heel spur. Very slight enthesopathy at the Achilles tendon insertion site. Joint spaces and alignment are otherwise maintained. Prominent soft tissue swelling about the ankle greatest at its lateral aspect. XR/XR ankle LT min 3V IMPRESSION: 1. Nondisplaced fracture involving the base of the right fifth metatarsal. Correlation with point tenderness. 2. Soft tissue swelling overlying the dorsum of the right midfoot. 3. No acute visible fracture or dislocation of the left ankle. 4. Prominent soft tissue swelling about the left ankle greatest at its lateral aspect. Electronically signed by: Armida Hodges MD 12/26/2023 04:37 PM EDT
[2023-12-26 15:54] VITALS: BP 122/89; PULSE 67; RESP 18; TEMP 36.7; O2SAT 98; BMI 36.3
--- NOTE | 2023-12-26 15:56 | ED_ITS ---
HPI - General Adult General Chief complaint: Extremity Injury, Lower Stated complaint: fell and twisted both legs Time Seen by Provider: 12/26/23 17:22 Source: patient Mode of arrival: ambulatory Limitations: no limitations History of Present Illness ED Provider: JENNIFER PATEL PA-C HPI narrative: 33 year old female with no significant pmhx presents to the ED today for evaluation of right foot and left ankle pain s/p fall 2 days ago. Patient states that while in the [place], she stepped off of a curb causing both feet to twist . Admits to left ankle pain and right foot pain. She has been able to ambulate with pain on bearing weight on her right foot. Pain is localized to lateral aspect of right foot with associated bruising. She is not on AC. Denies head strike or LOC during the fall. Denies numbness/ tingling/weakness of the LEs. She has been taking Motrin 800mg at home with little relief. The last dose was at 0930 this morning. Related Data Home Medications ?Medication ?Instructions ?Recorded ?Confirmed loratadine 10 mg tablet 10 mg PO DAILY PRN allergies 01/05/21 07/14/21 albuterol sulfate 90 mcg/actuation 2 puff PO Q4-6H PRN asthma 01/22/21 07/14/21 aerosol inhaler (ProAir HFA) Previous Rx's ?Medication ?Instructions ?Recorded ondansetron 4 mg disintegrating 4 mg PO Q8H PRN nausea and 01/13/23 tablet vomiting #20 tabs pyridoxine (vitamin B6) 100 mg 100 mg PO DAILY #90 tabs 02/01/23 tablet oxycodone 5 mg tablet 5 mg PO Q8H PRN pain (scale score 12/26/23 4-6) #8 tabs Allergies Allergy/AdvReac Type Severity Reaction Status Date / Time Seasonal Allergies Allergy Intermediate eye Verified 12/26/23 15:57 itching/congestion Review of Systems Review of Systems: Constitutional: No fever, chills, fatigue, night sweats, weight changes ENT/Mouth: No ear pain, hearing loss, nasal congestion, sinus pain, rhinorrhea, sore throat Eyes: No eye pain, swelling, redness, vision changes, discharge Cardio: No chest pain, palpitations, GARRETT, orthopnea, peripheral edema Pulm: No SOB, cough, sputum, wheezing, dyspnea, hemoptysis GI: No nausea, vomiting, hematemesis, abdominal pain, diarrhea, constipation, hematochezia, melena : No irregular bleeding, dysuria, frequency, urgency, hesitancy, hematuria, flank pain, urinary flow changes, urinary incontinence or retention MSK: No back pain, neck pain, joint pain, myalgias, +right foot pain, +left ankle pain Skin: No lesions, rashes Neuro: No weakness, numbness, paresthesias, LOC, dizziness, headache Psych: No anxiety/panic, depression, SI/HI, AH/VH All other systems reviewed and are negative. [facility] Past Medical History Attestation statement: The following information was validated with the patient. Source: old records reviewed and nursing notes reviewed Medical History ABBEY II (cervical intraepithelial neoplasia II) COVID-19 vaccine series completed Gallbladder polyp Depression Anxiety Asthma Acid reflux Surgical History History of laparoscopic cholecystectomy (~07/20/21) History of esophagogastroduodenoscopy (EGD) Hx of hand surgery Family History Family History Mother Breast cancer Maternal Aunt Breast cancer Maternal Grandmother Breast cancer Social History Social History Household Members Other:: one child Are you a primary caregiver services home to a significant other at home: No Do you presently have visiting nurse or other home services: No Alcohol intake: current Alcohol intake frequency: holidays/special occasions only Patient Tobacco Use Status: Never used Tobacco Substance Use Type: Marijuana Advance Directives: No Advance Directives Information Provided: No Do you have a plan to hurt others: No Plan Current occupational status: employed Gender identity: Female Physical Exam ED Vital Signs: Vital Signs - 24 hr 12/26/23 15:54 12/26/23 16:00 Temperature 98.1 F 98.3 F Pulse Rate 67 76 Respiratory Rate 18 Blood Pressure 122/89 136/81 Pulse Oximetry 98 98 Oxygen Delivery Method Room Air Room Air BMI result Body Mass Index 36.3 Const Orientation/consciousness: patient oriented x3 Eyes General: appearance normal, both eyes and all related structures Pupils: Equal, round and reactive pupils present Neck Neck: Yes normal visual inspection Resp Effort & Inspection: normal respiratory effort and able to speak in complete sentences Auscultation: clear to auscultation bilaterally Cardio Rate: regular rate Rhythm: regular rhythm Skin General skin exam: no rashes or lesions noted Neuro Other: limping gait General: patient oriented x3, tone normal and no focal motor deficits Cranial nerves: Yes Equal, round and reactive pupils present Motor exam (neuro): 5/5 motor strength present throughout Extrem Other: + noted swelling to right and left ankle. There is ecchymoses noted to the the lateral aspect of the right foot. No noted deformities. Tender to palpation without palpable deformity. 2+ PT/DP pulse intact bilaterally. Limited ROM to right and left ankles secondary to swelling. Ambulating with antalgic gait secondary to pain. Sensation intact to light touch. Strength 5/5 intact. General: Yes no calf tenderness Course Course Course Narrative: RME, this is a rapid medical exam performed by Jamar Jalloh please refer to primary provider for complete H&P- 33-year-old female presents for evaluation of right foot and left ankle pain after slipping 2 days ago while and hematocrit public. Patient reports that she was walking on the sidewalk and ?stepped wrong. ? Plan for x-rays. Reevaluation(s) Reevaluation #1: 8557-- x-ray left ankle without acute fracture or dislocation. X-ray of right foot showing subtle nondisplaced fracture of the base of the 5th metatarsal which is consistent with exam findings/point tenderness. Discussed this with on-call orthopedic FE Vela who has also reviewed films. She does not feel as though this is a true Mendoza fracture based on imaging. Recommend short boot and weight-bearing as tolerated with crutches. Follow up outpatient. > patient placed in walking boot and provided with crutches. Provided with orthopedic referral and advised to call tomorrow to make an appointment. Advised to take Tylenol and ibuprofen at home as needed for pain/discomfort. Morphine sent for breakthrough pain. Patient has remained stable throughout ED visit today. Discussed worrisome signs and symptoms and when to return to the ED. All questions answered at this time. Patient is agreeable with disposition and stable for discharge. Medications Administered Discontinued Medications Generic Name Dose Route Start Last Admin Trade Name Lexis PRN Reason Stop Dose Admin Oxycodone HCl 5 mg 12/26/23 18:06 12/26/23 18:59 Oxycodone Hcl Immed Release 5 Mg Tablet PO 12/26/23 18:07 5 mg ONCE ONE Administration Procedures Orthopedic Splinting/Casting Injury #1: Side: right Lower Extremity Injury Location: foot Lower Extremity Immobilizer: boot orthosis Other Orthopedic Equipment: crutches Medical Decision Making Medical Decision Making MDM Narrative: 33 year old female with no significant pmhx presents to the ED today for evaluation of right foot and left ankle pain s/p fall 2 days ago. Vital signs stable. Afebrile. On exam, there is noted swelling to right and left ankle. There is ecchymoses noted to the the lateral aspect of the right foot. No noted deformities. Tender to palpation without palpable deformity. 2+ PT/DP pulse in tact bilaterally. Limited ROM to right and left ankles secondary to swelling. Ambulating with antalgic gait secondary to pain. Sensation intact to light touch. Strength 5/5 intact. Differential diagnosis includes MSK sprain, MSK strain, fracture, dislocation, contusion. Unlikely compartment syndrome, neurovascular compromise, threat to limb, DVT. Plan for x-rays, pain control, re-evaluation. Differential Diagnosis Differential Diagnoses: The differential diagnosis associated with the presentation includes as above Admission/Observation not indicated Consult Healthcare Provider Management of the patient was discussed with: Courtesy Car Driver (orthopedic FE Rao) Independent Interpretation I performed an independent interpretation of an: Plain X-Ray Interpretation: XR left ankle without fracture or dislocation, agree with radiologist's interpretation. XR right foot with subtle fracture of the base of the fifth metatarsal, agree with radiologist's interpretation. Radiology Impression Discussion of test interpretation with radiology: I have reviewed the radiologist's reading. Radiologist Impression: EXAMINATION: XR ANKLE, LEFT XR FOOT, RIGHT CLINICAL INFORMATION: Fall COMPARISON: None available. TECHNIQUE: 3 views of the left ankle 3 views of the right foot FINDINGS: RIGHT FOOT: Nondisplaced fracture involving the base of the fifth metatarsal. Correlation with point tenderness. Plantar calcaneal heel spur. Joint space alignment are maintained. Soft tissue swelling overlying the dorsum of the midfoot. LEFT ANKLE: No acute visible fracture or dislocation. The ankle mortise is symmetric. Tiny plantar calcaneal heel spur. Very slight enthesopathy at the Achilles tendon insertion site. Joint spaces and alignment are otherwise maintained. Prominent soft tissue swelling about the ankle greatest at its lateral aspect. IMPRESSION: 1. Nondisplaced fracture involving the base of the right fifth metatarsal. Correlation with point tenderness. 2. Soft tissue swelling overlying the dorsum of the right midfoot. 3. No acute visible fracture or dislocation of the left ankle. 4. Prominent soft tissue swelling about the left ankle greatest at its lateral aspect. Electronically signed by: Armida Hodges MD 12/26/2023 04:37 PM EDT Independent Historian Clinical information obtained from an independent historian. History obtained from or confirmed by: Spouse Prescription Management I considered prescription management with: Pain Medication Social Determinants Patient?s care significantly limited by Social Determinants of Health including: Other Social Determinant of Health Critical Care Time Critical Care Time Critical Care Time: No Discharge Plan Discharge Clinical Impression: Fracture of fifth metatarsal bone of right foot Patient Disposition: Home, Self-Care Instructions: Foot Fracture in Adults (ED), Walking Boot (ED) Additional Instructions: Your x-rays today show a fracture at the base of your right 5th metatarsal. You were provided with a walking boot and crutches today. You may bear weight on your right foot as tolerated. Please follow-up with [facility] orthopedics this week. Call them tomorrow to schedule an appointment with them. They will not call you. I recommend you take 600mg ibuprofen every 6 hours or Tylenol 650mg every 6 hours as needed for pain. If needed, you can alternate these medications so that you take one medication every 3 hours. For example, at noon take ibuprofen, then at 3pm take Tylenol, then at 6pm take ibuprofen. Oxycodone has been sent to the pharmacy for you to take as needed for breakthrough pain. This is a controlled substance so please use with caution as it has a addictive properties. Return to the ED with new or worsening symptoms. In the case of an emergency call 911. Prescriptions: New oxycodone 5 mg tablet 5 mg PO Q8H PRN (Reason: pain (scale score 4-6)) Qty: 8 0RF Rx Instructions: Partial Fill upon patient request. No Action albuterol sulfate [ProAir HFA] 90 mcg/actuation HFA aerosol inhaler 2 puff PO Q4-6H PRN (Reason: asthma) ondansetron 4 mg tablet,disintegrating 4 mg PO Q8H PRN (Reason: nausea and vomiting) Qty: 20 0RF loratadine 10 mg tablet 10 mg PO DAILY PRN (Reason: allergies) pyridoxine (vitamin B6) 100 mg tablet 100 mg PO DAILY Qty: 90 3RF Referrals: [facility] Orthopedic Surgeons [Provider Group] Lorna Souza MD [Primary Care Provider] - Stand Alone Forms: Work/School Release Discharge Date/Time: 12/26/23 19:04 Print Language: Japanese
[2023-12-26 16:00] VITALS: BP 136/81; PULSE 76; TEMP 36.8; O2SAT 98
--- NOTE | 2023-12-26 17:23 | PC.NURSE ---
patient brought back to EM, patient right foot noted to be bruised on the lateral aspect of her foot along with bruising to metatarsal 2, patient left ankle noted to be swollen and bruised. patient has bilat pedal pulses. patient states she was in [place] when she stepped the wrong way and twisted both ankle/feet. patient endorses increased swelling after flight home.
[2023-12-26] MEDS: oxyCODONE HCl Immed Release 5 MG TABLET PO (18:59)
== END 2023-12-26 19:04 | disposition home or self-care (01) ==
PROVIDERS: Emergency Provider Emergency Medicine; PCP Internal Medicine
DX: S92.351A Displaced fracture of fifth metatarsal bone, right foot, initial encounter for closed fracture (principal); M25.571 Pain in right ankle and joints of right foot; M25.572 Pain in left ankle and joints of left foot; X50.1XXA Overexertion from prolonged static or awkward postures, initial encounter; Y93.89 Activity, other specified; Y92.89 Other specified places as the place of occurrence of the external cause; Y99.8 Other external cause status
CPT/HCPCS: 29515; 73610; 73630; 99283; 99284

== ENCOUNTER 2024-01-05 13:38 | Outpatient (AMB) | payer MEDICAID, SELFPAY ==
--- NOTE | 2024-01-05 14:00 | A.OFFVIS_ITS ---
Vital Signs 01/05/24 14:04 Height 5 ft 6 in Weight 225 lb BMI 36.3 Intake Visit Reasons: FC- 5th MT fracture Intake Note: Linda is a 33 year old female who presents today for a fracture care visit for her right foot metatarsal fracture s/p fall DOI: 12/24/23. Patient states while in [place] she stepped off the curb resulting in both her ankles twisting. She presented to [facility] ED on 12/26/23 where xrays were taken and provided her with a boot and crutches, she was advised to follow up with orthopedics. Currently she has pain located at the top of her foot as well as numbness and tingling. She also complains of pain located at the lateral aspect of left foot. Hx of left foot problems previously, she is scheduled to see podiatry in February. She returned back to work Monday01/01/24 and had to call out Monday due to her discomfort. Allergies Seasonal Allergies Allergy (Intermediate, Verified 01/05/24 14:30) eye itching/congestion Medication List - Last Reconciled 01/05/24 by Sandeep Rivas PA-C albuterol sulfate 90 mcg/actuation (ProAir HFA) 2 puffs PO Q4-6H PRN hydroxyzine pamoate mg PO loratadine 10 mg PO DAILY PRN ondansetron 4 mg PO Q8H PRN oxycodone 5 mg PO Q8H PRN pyridoxine (vitamin B6) 100 mg PO DAILY HPI HPI FC- 5th MT fracture: Details: 33-year-old female who presents to the office today for an ER follow-up of left 5th metatarsal injury, 12/24/23. She reports she was in [place] where she stepped off the curb resulting in both ankles twisting and sustaining a fall. She was seen at ED on 12/26/23 where x-rays were performed, she was placed in a walking boot and crutches and referred her to our office. She currently states she has pain, numbness and tingling at the top of her right foot as well as pain at the lateral aspect of her left foot. She has a history of left foot pain in the past. She is scheduled to see podiatry in February. [facility] Medical History ABBEY II (cervical intraepithelial neoplasia II) COVID-19 vaccine series completed Gallbladder polyp Depression Anxiety Asthma Acid reflux Surgical History History of laparoscopic cholecystectomy (~07/20/21) History of esophagogastroduodenoscopy (EGD) Hx of hand surgery Family History Mother Breast cancer Maternal Aunt Breast cancer Maternal Grandmother Breast cancer Social History (Updated 01/05/24 @ 14:03 by LAYLA Parrish) Household Members Other:: one child Are you a primary child care aide to a significant other at home: No Do you presently have visiting nurse or other home services: No Alcohol intake: current Alcohol intake frequency: holidays/special occasions only Patient Tobacco Use Status: Never used Tobacco Substance Use Type: Marijuana Current occupational status: employed 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 Gender identity: Female Female Reproductive History Menstrual Age of Menarche: 14 Review of Systems Const All systems reviewed & are unremarkable except as noted in HPI and below Physical Exam Vital Signs: BMI result Body Mass Index 36.3 Const General: cooperative, healthy appearing, comfortable, no acute distress, well developed and alert Orientation/consciousness: patient oriented x3 HEENT Head: Yes normal to inspection, Yes normocephalic and Yes atraumatic Eyes General: appearance normal, both eyes and all related structures Resp Effort & Inspection: normal respiratory effort and able to speak in complete sentences Cardio Rate: regular rate Peripheral pulses: Peripheral pulses 2+ throughout GI Palpation (GI): Soft to palpation Skin Lesions: no lesions Rashes: no rashes Neuro General: patient oriented x3 Extrem Other: Left ankle: Normal to inspection with diffuse swelling over the medial and lateral malleolus with tenderness along the soft tissues. Mild discomfort along the posterior aspect of the ankle, no deformity along the Achilles tendon, negative Canseco?s. No pain along the syndesmosis or anterior tibia. No laxity, NVI. Right foot: Skin intact.? There is some bruising of the lateral edge of the left foot.? There is tenderness at the base of the 5th metatarsal. Sensation intact.? EHL intact.? No pain along the mediolateral malleolus.? Neurovascularly intact. Office Procedures Fracture Care Fracture Billing Code: Fracture Billing Code Results Reviewed Results Reviewed: IMPRESSION: 1. Nondisplaced fracture involving the base of the right fifth metatarsal. Correlation with point tenderness. 2. Soft tissue swelling overlying the dorsum of the right midfoot. 3. No acute visible fracture or dislocation of the left ankle. 4. Prominent soft tissue swelling about the left ankle greatest at its lateral aspect. Assessment & Plan Assessment & Plan (1) History of sprain of both ankles: Code(s): Z87.828 - Personal history of other (healed) physical injury and trauma Category: Medical (2) Nondisplaced fracture of fifth right metatarsal bone: Code(s): S92.354A - Nondisplaced fracture of fifth metatarsal bone, right foot, initial encounter for closed fracture Category: Medical Plan We discussed options which include PT, NSAIDs and injections. The patient will defer on the injection today and proceed with PT and NSAIDs. She was given a lace up ankle brace for her left ankle. For her right foot, she will continue with her walking boot weight bearing as tolerated for the next 4 weeks and then transitioned to a regular street shoe as tolerated. If symptoms persist, she will contact me for an injection, otherwise, PRN. Orders: Orders PT Evaluation and Treatment Today S92.354A - Nondisplaced fracture of fifth metatarsal bone, right foot, initial encounter for closed fracture, Z87.828 - Personal history of other (healed) physical injury and trauma Patient Instructions: Scribed for Sandeep Rivas PA-C, by sterling Becerra scribe, on 01/05/2024 at 2:00 PM EST.? I, Sandeep Rivas PA-C, have personally reviewed and agree with the information entered by the scribe. Coding Level of Care Code New Pt Level 3 (57926) Complex EM visit Add On G2211 Diagnoses History of sprain of both ankles Z87.828 Nondisplaced fracture of fifth right metatarsal bone S92.354A CPT Codes Fracture Care - Fracture Billing Code: Fracture Billing Code ([id number])
[2024-01-05 14:04] VITALS: BMI 36.3
== END 2024-01-05 14:30 | disposition home or self-care (01) ==
PROVIDERS: PCP Internal Medicine; Visit Provider Physician Assistant
DX: S92.354A Nondisplaced fracture of fifth metatarsal bone, right foot, initial encounter for closed fracture (principal); M79.672 Pain in left foot; Z87.828 Personal history of other (healed) physical injury and trauma
CPT/HCPCS: 99203

== ENCOUNTER → 2024-01-05 13:38 | Outpatient (BNVA) | payer MEDICAID, SELFPAY | PROVIDERS: PCP Internal Medicine; Visit Provider Physician Assistant | DX: S92.354A Nondisplaced fracture of fifth metatarsal bone, right foot, initial encounter for closed fracture (principal); X50.1XXA Overexertion from prolonged static or awkward postures, initial encounter; Y93.01 Activity, walking, marching and hiking; Y92.480 Sidewalk as the place of occurrence of the external cause; Y99.9 Unspecified external cause status; M25.474 Effusion, right foot | CPT/HCPCS: 99212 ==

== ENCOUNTER 2024-01-15 20:11 | Emergency (ER) | payer MEDICAID, SELFPAY ==
[2024-01-15 20:16] VITALS: BP 112/74; PULSE 80; O2SAT 95
[2024-01-15 20:26] VITALS: BP 111/72; BP 112/74; PULSE 80; RESP 14; TEMP 36.1; O2SAT 94; O2SAT 95; BMI 40.3
--- NOTE | 2024-01-15 20:27 | ED.GENADULT ---
HPI - General Adult General Chief complaint: Anxiety Stated complaint: ANXIETY, DIZZINESS, NAUSEA, SOB Related Data Home Medications ?Medication ?Instructions ?Recorded ?Confirmed loratadine 10 mg tablet 10 mg PO DAILY PRN allergies 01/05/21 07/14/21 albuterol sulfate 90 mcg/actuation 2 puff PO Q4-6H PRN asthma 01/22/21 07/14/21 aerosol inhaler (ProAir HFA) hydroxyzine pamoate 25 mg capsule mg PO 01/05/24 01/05/24 Previous Rx's ?Medication ?Instructions ?Recorded ondansetron 4 mg disintegrating 4 mg PO Q8H PRN nausea and 01/13/23 tablet vomiting #20 tabs pyridoxine (vitamin B6) 100 mg 100 mg PO DAILY #90 tabs 02/01/23 tablet oxycodone 5 mg tablet 5 mg PO Q8H PRN pain (scale score 12/26/23 4-6) #8 tabs Allergies Allergy/AdvReac Type Severity Reaction Status Date / Time Seasonal Allergies Allergy Intermediate eye Verified 01/15/24 20:28 itching/congestion PMFSH Past Medical History Medical History ABBEY II (cervical intraepithelial neoplasia II) COVID-19 vaccine series completed Gallbladder polyp Depression Anxiety Asthma Acid reflux Surgical History History of laparoscopic cholecystectomy (~07/20/21) History of esophagogastroduodenoscopy (EGD) Hx of hand surgery Family History Family History Mother Breast cancer Maternal Aunt Breast cancer Maternal Grandmother Breast cancer Social History Social History (Updated 01/05/24 @ 14:03 by LAYLA Parrish) Household Members Other:: one child Are you a primary animal care assistant to a significant other at home: No Do you presently have visiting nurse or other home services: No Alcohol intake: current Alcohol intake frequency: holidays/special occasions only Patient Tobacco Use Status: Never used Tobacco Substance Use Type: Marijuana Current occupational status: employed 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 RME assessment and note performed by: Aishwarya Emery PA-C This is a 33-year-old female who presents emergency department with complaints of dizziness, lightheadedness, shortness of breath since today. This all happened while she was having argument. On arrival, vital signs within normal limits. She is speaking in full sentences. Plan: Labs, EKG, UA, further ER evaluation needed Reevaluation(s) Reevaluation #1: Patient left without completing treatment. Medical Decision Making Lab Data 01/15/24 20:54 01/15/24 20:54 Labs: Lab Results 01/15/24 Range/Units 20:54 WBC 13.6 H (4.8-10.8) X10*3/uL RBC 4.51 (4.20-5.50) X10*6/uL Hgb 13.5 (12.0-16.0) g/dl Hct 40.4 (37.0-47.0) % MCV 89.6 (80.0-98.0) fL MCH 29.9 (27.0-33.0) pg MCHC 33.4 (31.0-35.0) g/dl RDW 13.3 (11.0-16.0) % Plt Count 252 (160-400) X10*3/uL MPV 10.4 (9.4-12.3) fL Immature Gran % (Auto) 0.4 (0.0-0.4) % Neut % (Auto) 67.2 (45-73) % Lymph % (Auto) 23.2 (20-40) % [place] % (Auto) 5.3 (2-11) % Eos % (Auto) 3.5 (0-4) % Baso % (Auto) 0.4 (0-2) % Lymph # (Auto) 3.1 (1.2-4.9) X10*3/uL [place] # (Auto) 0.7 (0.1-1.2) X10*3/uL Eos # (Auto) 0.5 H (0.0-0.4) X10*3/uL Baso # (Auto) 0.1 (0.0-0.2) X10*3/uL Abs Immat Gran (auto) 0.06 H (0.00-0.03) X10*3/uL Absolute Neuts (auto) 9.1 H (2.0-8.3) x10*3/uL Absolute Nucleated RBC 0.000 (0.0-0.012) X10*3/uL Nucleated RBC % (auto) 0.0 (0.0-0.2) /100WBC APTT 25.4 L (26.0-36.8) SEC Sodium 140 (135-145) mmol/L Potassium 3.8 (3.3-5.1) mmol/L Chloride 108 (96-108) mmol/L Carbon Dioxide 24 (22-29) mmol/L Anion Gap 12 (12-20) BUN 15 (9-16) mg/dL Creatinine 0.85 (0.5-1.4) mg/dL Estim Creat Clear Calc 122.5 Estimated GFR > 60 Random Glucose 96 (60-115) mg/dL Calcium 9.2 (8.4-10.2) mg/dL Total Bilirubin 0.3 (0.0-1.0) mg/dL Direct Bilirubin 0.1 (0.0-0.5) mg/dL AST 14 (5-31) U/L ALT 21 (0-31) U/L Alkaline Phosphatase 88 (39-117) U/L Troponin I High Sens < 2.7 (<3.5-17.0) ng/L Total Protein 6.9 (6.5-8.0) g/dL Albumin 4.3 (3.5-5.0) g/dL TSH 2.32 (0.32-4.0) uIU/mL Beta HCG, Quant < 2 mIU/mL Discharge Plan Discharge Clinical Impression: Lightheadedness Patient Disposition: Left W/O Completing Treatment Prescriptions: No Action albuterol sulfate [ProAir HFA] 90 mcg/actuation HFA aerosol inhaler 2 puff PO Q4-6H PRN (Reason: asthma) ondansetron 4 mg tablet,disintegrating 4 mg PO Q8H PRN (Reason: nausea and vomiting) Qty: 20 0RF oxycodone 5 mg tablet 5 mg PO Q8H PRN (Reason: pain (scale score 4-6)) Qty: 8 0RF Rx Instructions: Partial Fill upon patient request. loratadine 10 mg tablet 10 mg PO DAILY PRN (Reason: allergies) pyridoxine (vitamin B6) 100 mg tablet 100 mg PO DAILY Qty: 90 3RF hydroxyzine pamoate 25 mg capsule PO Discharge Date/Time: 01/16/24 01:08
--- NOTE | 2024-01-15 20:28 | ECG_ITS ---
Test Reason : PALPITAIONS Blood Pressure : / mmHG Vent. Rate : 066 BPM Atrial Rate : 066 BPM P-R Int : 152 ms QRS Dur : 086 ms QT Int : 414 ms P-R-T Axes : 050 015 025 degrees QTc Int : 434 ms Normal sinus rhythm Normal ECG No previous ECGs available Referred By: Aishwarya Emery Electronically Signed By:
[2024-01-15 21:00] LABS: MANUAL DIFF FLAG NO
[2024-01-15 21:02] LABS: Basophils Absolute Auto 0.1 X10*3/uL (0.0-0.2); Basophils Percent Auto 0.4 % (0-2); Eosinophils Absolute Auto 0.5 X10*3/uL (0.0-0.4); Eosinophils Percent Auto 3.5 % (0-4); Hematocrit 40.4 % (37.0-47.0); Hemoglobin 13.5 g/dl (12.0-16.0); Imm Gran Abs Auto 0.06 X10*3/uL (0.00-0.03); Imm Gran Pct Auto 0.4 % (0.0-0.4); Lymphocytes Absolute Auto 3.1 X10*3/uL (1.2-4.9); Lymphocytes Percent Auto 23.2 % (20-40); Mean Corpuscular HGB Conc 33.4 g/dl (31.0-35.0); Mean Corpuscular Hemoglobin 29.9 pg (27.0-33.0); Mean Corpuscular Volume 89.6 fL (80.0-98.0); Mean Platelet Volume 10.4 fL (9.4-12.3); Monocytes Absolute Auto 0.7 X10*3/uL (0.1-1.2); Monocytes Percent Auto 5.3 % (2-11); Neutrophils Absolute Auto 9.1 x10*3/uL (2.0-8.3); Neutrophils Percent Auto 67.2 % (45-73); Platelet Count 252 X10*3/uL (160-400); Red Blood Count 4.51 X10*6/uL (4.20-5.50); Red Cell Distribution Width 13.3 % (11.0-16.0); White Blood Count 13.6 X10*3/uL (4.8-10.8)
[2024-01-15 21:13] LABS: Partial Thromboplastin Time 25.4 SEC (26.0-36.8)
[2024-01-15 21:26] LABS: Alanine Aminotransferase 21 U/L (0-31); Albumin Level 4.3 g/dL (3.5-5.0); Alkaline Phosphatase 88 U/L (39-117); Anion Gap 12 (12-20); Aspartate Amino Transferase 14 U/L (5-31); Bilirubin Direct 0.1 mg/dL (0.0-0.5); Bilirubin Total 0.3 mg/dL (0.0-1.0); Blood Urea Nitrogen 15 mg/dL (9-16); Calcium 9.2 mg/dL (8.4-10.2); Carbon Dioxide 24 mmol/L (22-29); Chloride 108 mmol/L (96-108); Creatinine Clr Calc Pharmacy 122.5; Estimated Glomerular Filt Rate > 60; Glucose Random 96 mg/dL (60-115); Potassium 3.8 mmol/L (3.3-5.1); Sodium 140 mmol/L (135-145); Total Protein 6.9 g/dL (6.5-8.0)
[2024-01-15 21:30] LABS: HCG Quantitative < 2 mIU/mL; Troponin-I High Sensitivity < 2.7 ng/L (<3.5-17.0)
[2024-01-15 21:40] LABS: TSH reflex Free T4 2.32 uIU/mL (0.32-4.0)
== END 2024-01-16 01:08 | disposition left against medical advice (07) ==
PROVIDERS: Physician Assistant Medical; Emergency Provider Emergency Medicine
DX: R42 Dizziness and giddiness (principal); F41.9 Anxiety disorder, unspecified; R11.0 Nausea; R06.02 Shortness of breath; F12.90 Cannabis use, unspecified, uncomplicated
CPT/HCPCS: 36415; 80048; 80076; 84443; 84484; 84702; 85025; 85730; 93005; 99283

== ENCOUNTER 2024-02-02 08:02 | Outpatient (AMB) | payer MEDICAID, SELFPAY ==
--- NOTE | 2024-02-02 08:07 | MHC.OFFVIS ---
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 The patient had the following Pap smear history 09/25 Pap negative/HPV positive, HPV 16/18/45 negative 09/26 ascus HPV positive, HPV 16/18/45 negative, colpo/ biopsy ABBEY 2-patient preferred observation 07/28 ascus/HPV positive, HPV 16/18/45 negative, colpo biopsy ABBEY 1 01/28 LSIL/HPV positive, colpo biopsy ECC negative PFSH Medical History ABBEY II (cervical intraepithelial neoplasia II) COVID-19 vaccine series completed Gallbladder polyp Depression Anxiety Asthma Acid reflux Surgical History History of laparoscopic cholecystectomy (~07/20/21) History of esophagogastroduodenoscopy (EGD) Hx of hand surgery Family History Mother Breast cancer Maternal Aunt Breast cancer Maternal Grandmother Breast cancer Social History Household Members Other:: one child Are you a primary resident care assistant to a significant other at home: No Do you presently have visiting nurse or other home services: No Alcohol intake: current Alcohol intake frequency: holidays/special occasions only Patient Tobacco Use Status: Never used Tobacco Substance Use Type: Marijuana Current occupational status: employed 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 Gender identity: Female Female Reproductive History Menstrual Age of Menarche: 14 Date of last menstrual period: 01/21/24 Review of Systems Const All systems reviewed & are unremarkable except as noted in HPI and below Card Reports as per HPI Resp Reports as per HPI GI Reports as per HPI and Reports no additional complaints Reports as per HPI Physical Exam Vital Signs: BMI result Body Mass Index 40.2 Const General: cooperative, healthy appearing and comfortable Chest Chest palpation & inspection: normal inspection of the chest and normal palpation of entire chest wall Breast/axilla inspection: normal inspection of the breasts and normal inspection of the axillae Breast/axilla palpation: normal palpation of the breasts, normal palpation of the axillae and no axillary lymphadenopathy Resp Effort & Inspection: normal respiratory effort Auscultation: clear to auscultation bilaterally Percussion: percussion normal Cardio Palpation: normal PMI Rate: regular rate Rhythm: regular rhythm Heart sounds: no murmurs and no rubs Peripheral pulses: Peripheral pulses 2+ throughout GI Inspection: Yes normal to inspection Palpation (GI): Soft to palpation, nontender, no guarding, not rigid and No hepatosplenomegaly present Percussion: Yes normal to percussion Auscultation: normal bowel sounds Rectal Exam - Female: deferred General: Yes bladder normal to palpation External Female Exam: No lesion Speculum Exam - Vagina: normal appearance of the vagina, normal palpation, normal vaginal discharge and not erythematous Speculum Exam - Cervix: normal appearance of the cervix and normal palpation Bimanual exam- vagina & uterus: normal bimanual exam, normal palpation, uterine size normal, bladder normal to palpation, consistency normal and normal palpation Bimanual Exam- Adnexa, other: normal adnexae, no masses and no tenderness Assessment & Plan Assessment & Plan (1) ABBEY II (cervical intraepithelial neoplasia II): Comment: 09/25 Pap negative/HPV positive, HPV 16/18/45 negative 09/26 ascus HPV positive, HPV 16/18/45 negative, colpo/ biopsy ABBEY 2-patient preferred observation 07/28 ascus/HPV positive, HPV 16/18/45 negative, colpo biopsy ABBEY 1 01/28 LSIL/HPV positive, colpo biopsy ECC negative Code(s): N87.1 - Moderate cervical dysplasia Category: Medical Plan: Co testing done if negative will proceed with HPV based testing annually for 3 years then Co test every 3 years for 25 years any abnormal test will proceed with colposcopy. All questions answered, the patient verbalized understanding (2) Well woman exam: Code(s): Z01.419 - Encounter for gynecological examination (general) (routine) without abnormal findings Category: Medical Plan: Cotesting done. Counseled the patient about the recommended dietary allowance of 1000 mg of Calcium & 600 IU of vitamin D. The patient was instructed to perform monthly self-breast exams and to schedule an annual exam in a year; All questions answered and the patient verbalized understanding. Instructed the patient to schedule annual exam in a year Orders: Orders PAP + HPV E6/E7 rfx 18/45 Today N87.1 - Moderate cervical dysplasia, R87.610 - Atypical squamous cells of undetermined significance on cytologic smear of cervix (ASC-US), R87.810 - Cervical high risk human papillomavirus (HPV) DNA test positive Coding Level of Care Code Est Pt Prev Care 18-39y(99201) Diagnoses ABBEY II (cervical intraepithelial neoplasia II) N87.1 Well woman exam Z01.419
[2024-02-02 08:11] VITALS: BMI 40.2
== END 2024-02-02 09:25 | disposition home or self-care (01) ==
LOC: HO.HWS 08:02
PROVIDERS: Visit Provider Obstetrics & Gynecology
DX: Z01.419 Encounter for gynecological examination (general) (routine) without abnormal findings (principal); N87.1 Moderate cervical dysplasia
CPT/HCPCS: 99395

== ENCOUNTER 2024-02-02 08:02 | Outpatient (REF) | payer MEDICAID, SELFPAY ==
[2024-02-07 15:59] LABS: HPV mRNA E6/E7 Not Detected (Not Detected)
== END 2024-02-02 08:03 | disposition home or self-care (01) ==
LOC: HO.LNP 08:02
PROVIDERS: Visit Provider Obstetrics & Gynecology
DX: Z01.419 Encounter for gynecological examination (general) (routine) without abnormal findings (principal); R87.610 Atypical squamous cells of undetermined significance on cytologic smear of cervix (ASC-US); R87.810 Cervical high risk human papillomavirus (HPV) DNA test positive
CPT/HCPCS: 87624; 88175; 99395

== ENCOUNTER 2024-02-14 09:10 | Outpatient (REF) | payer MEDICAID, SELFPAY ==
[2024-02-14 12:12] LABS: Estimated Average Glucose 103 mg/dL; Hemoglobin A1C 116.6883 umol/L; Hemoglobin A1c % 5.2 % (<6.0); Total Hemoglobin (HGBA1C) 3481.1887 umol/L
[2024-02-14 12:28] LABS: Alanine Aminotransferase 27 U/L (0-31); Albumin Level 4.2 g/dL (3.5-5.0); Alkaline Phosphatase 98 U/L (39-117); Anion Gap 11 (12-20); Aspartate Amino Transferase 19 U/L (5-31); Bilirubin Total 0.5 mg/dL (0.0-1.0); Blood Urea Nitrogen 11 mg/dL (9-16); Calcium 9.2 mg/dL (8.4-10.2); Carbon Dioxide 25 mmol/L (22-29); Chloride 108 mmol/L (96-108); Cholesterol 173 mg/dL (<200); Estimated Glomerular Filt Rate > 60; Glucose Random 95 mg/dL (60-115); HDL Cholesterol 57 mg/dL (>40); LDL Cholesterol Calculated 101 mg/dL (<100); Potassium 4.2 mmol/L (3.3-5.1); Sodium 140 mmol/L (135-145); Total Protein 7.1 g/dL (6.5-8.0); Triglycerides 76 mg/dL (<150)
[2024-02-14 12:29] LABS: HIV AB/AG Nonreactive (Nonreactive); HIV Num 1 0.06 S/CO (0.00-0.99); ~HepC Num1 0.56 S/CO (0.00-0.79); ~Hepatitis C Antibody Nonreactive (Nonreactive)
[2024-02-14 12:45] LABS: Folate 7.1 ng/mL (> or = 4.0); Vitamin B12 317 pg/mL (200-900)
[2024-02-14 12:48] LABS: Vitamin D 25-OH Total 26.3 ng/mL (>30)
[2024-02-16 08:50] LABS: RPR Rapid Plasma Reagin NON-REACTIVE (NON-REACTIVE)
== END 2024-02-14 09:11 | disposition home or self-care (01) ==
LOC: HO.HHCL 09:10
PROVIDERS: Visit Provider Internal Medicine
DX: R42 Dizziness and giddiness (principal)
CPT/HCPCS: 36415; 80053; 80061; 82306; 82607; 82746; 83036; 86592; 86803; 87389

== ENCOUNTER 2024-02-23 11:35 | Outpatient (AMB) | payer MEDICAID, SELFPAY ==
--- NOTE | 2024-02-23 11:22 | A.OFFVIS_ITS ---
Intake Visit Reasons: 1yr follow up/US Intake Note: Patient presents today for a 1y follow-up/US Meds-VITAMIN B6 Allergies to Antibiotic- No Known Allergies Blood Thinner- None Patient Companion Required: No Accompanied by: Self / Same As Patient Allergies Seasonal Allergies Allergy (Intermediate, Verified 02/23/24 11:35) eye itching/congestion HPI Comments Details: 02/23/24--Linda is a 32-year-old female who presents today to the office for a follow-up. Telehealth - reviewed renal US 12/07/23- Renal US--Right renal 7 mm lower pole calculus. Right tol-xy-vlhlm pole 4 mm echogenic cortical focus difficult to characterize due to small size and limited visualization, possibly representing an angiomyolipoma. Review of chart: 02/01/2023?He is followed today for kidney stone/US. She was seen in ED on 01/13/2023 for ureterolithiasis. The patient was advised to return to clinic for worsening pain, fever, vomiting, severe pain, or inability to take medications at that time. He was advised to take a probiotic while on antibiotics.?Patient states that she was seen in ER for abdominal pain. She states that since over the last week, the symptoms have been resolved. The patient feels she passed the stone. I reviewed the renal US results from 01/16/2023 revealed a 5 mm nonobstructing right lower pole renal stone, previously 3 mm. I reviewed the CT abdomen/pelvis results from 01/13/2023 revealed no acute intra-abdominal process seen. There are 2 mm radiopaque densities in the right pelvis adjacent to the UV junction. [facility] Medical History ABBEY II (cervical intraepithelial neoplasia II) COVID-19 vaccine series completed Gallbladder polyp Depression Anxiety Asthma Acid reflux Surgical History History of laparoscopic cholecystectomy (~07/20/21) History of esophagogastroduodenoscopy (EGD) Hx of hand surgery Family History Mother Breast cancer Maternal Aunt Breast cancer Maternal Grandmother Breast cancer Social History Household Members Other:: one child Are you a primary long term care phlebotomist to a significant other at home: No Do you presently have visiting nurse or other home services: No Alcohol intake: current Alcohol intake frequency: holidays/special occasions only Patient Tobacco Use Status: Never used Tobacco Substance Use Type: Marijuana Current occupational status: employed 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 Gender identity: Female Female Reproductive History Menstrual Age of Menarche: 14 Review of Systems Const All systems reviewed & are unremarkable except as noted in HPI and below Reports no additional complaints Eyes Reports no additional complaints ENT Reports no additional complaints Card Reports no additional complaints Resp Reports no additional complaints GI Reports no additional complaints Reports as per HPI Musc Reports no additional complaints Skin/Breast Reports system reviewed and no additional complaints, except as documented Neuro Reports no additional complaints Psych Reports no additional complaints Endo Reports no additional complaints Paul/Lymph Reports no additional complaints Aller/Immun Reports no additional complaints Telehealth Telehealth Telehealth Platform: [facility] Location of provider rendering services: practice address Location of patient: address on file Patient Identification confirmed using: Name, : Yes Telehealth method: voice only Patient verbally consented to treatment: Yes Patient verbally consented to billing insurance company: Yes Patient informed of any privacy concerns related to visit: Yes Results Reviewed Results Reviewed: Date of Service: 12/07/23 US RETROPERITONEAL LIMITED (RENAL ONLY) CLINICAL INFORMATION: Calculus of kidney. COMPARISON: Renal ultrasound 01/16/2023 and 01/07/2022. CT abdomen and pelvis 01/13/2023. MRI abdomen 06/04/2021. TECHNIQUE: Real-time imaging of the kidneys. Limited visualization due to bowel gas. FINDINGS: RIGHT KIDNEY: 9.8 x 4.5 x 6.0 cm (SAG x AP x TRV). No hydronephrosis. Renal cortical thickness is normal. Limited visualization. Right renal 7 mm lower pole calculus. Right wua-pc-wvqeq pole 4 mm echogenic cortical focus difficult to characterize due to small size and limited visualization, possibly representing an angiomyolipoma and not appreciated on prior exams. LEFT KIDNEY: 10.8 x 5.2 x 5.2 cm (SAG x AP x TRV). No hydronephrosis. No renal calculi. Renal cortical thickness is normal. Limited visualization. IMPRESSION: 1. Right renal 7 mm lower pole calculus. No hydronephrosis. 2. Right vdj-vd-sfotb pole 4 mm echogenic cortical focus difficult to characterize due to small size and limited visualization, possibly representing an angiomyolipoma and not appreciated on prior exams. Date of Service: 01/13/23 EXAMINATION: CT ABDOMEN AND PELVIS WITH CONTRAST?? CLINICAL INFORMATION: Right lower quadrant pain.?? COMPARISON: Retroverted ultrasound 01/14/2022 FINDINGS: LUNG BASES: The visualized lung bases are unremarkable.?? LIVER, GALLBLADDER, AND BILIARY TREE: The liver is normal in size, shape, and attenuation. No focal hepatic lesion or biliary ductal dilatation is present. The gallbladder has been surgically removed.?? PANCREAS: Unremarkable.?? SPLEEN: Unremarkable.?? ADRENAL GLANDS: Unremarkable.?? KIDNEYS AND URETERS: The kidneys are normal in size, shape, and attenuation. No hydronephrosis, hydroureter, or calculi seen. No perinephric stranding. Is that BLADDER: Unremarkable.?? GASTROINTESTINAL TRACT: There is scattered stool and gas seen throughout the colon without distention. The small bowel loops are normal caliber. Appendix is normal caliber. There is no free air or free fluid seen. ABDOMINAL WALL: No significant hernia is appreciated.?? LYMPH NODES: Normal. VASCULAR: Unremarkable. PELVIC VISCERA: The uterus is retroverted. There is small amount of free fluid in the cul-de-sac. No adnexal mass seen. No inflammatory process in the right lower quadrant. There are 2 mm radiopaque density seen in the right pelvis adjacent to the UV junction. Question tiny stones. There however there is no dilatation of the distal ureter at this time. Patient did have echogenic calculi in the lower pole right kidney on previous ultrasound exam 01/07/22. OSSEOUS STRUCTURES: Unremarkable.?? IMPRESSION: 1.? No acute intra-abdominal process seen. 2.? Mild constipation. Normal appendix. 3.? There are 2 mm radiopaque densities in the right pelvis adjacent to the UV junction. Question solitary stone at the right UVJ. However there is no dilatation of distal ureter at this time. Patient did have echogenic calculi in the lower pole right kidney on the previous ultrasound exam 01/07/22. 4.? Retroverted uterus with small amount of free fluid in the cul-de-sac. No acute intra-abdominal process seen. Date of Service: 01/16/23 EXAMINATION:? US RETROPERITONEAL LIMITED (RENAL ONLY) CLINICAL INFORMATION: Calculus of kidney. COMPARISON:? CT abdomen and pelvis with contrast 01/13/2023. Ultrasound retroperitoneal limited (renal only) 01/07/2022?? FINDINGS: RIGHT KIDNEY: 9.8 x 3.8 x 6.2 cm (SAG x AP x TRV). The kidney is normal in size, contour, and echogenicity. Renal cortical thickness is normal. No focal parenchymal lesions or hydronephrosis. 5 mm nonobstructing lower pole renal stone, previously 3 mm on prior ultrasound increased in size from prior. LEFT KIDNEY: 11.2 x 4.7 x 5.3 cm (SAG x AP x TRV). The kidney is normal in size, contour, and echogenicity. Renal cortical thickness is normal. No calculi or focal parenchymal lesions. No hydronephrosis. IMPRESSION:? A 5 mm nonobstructing right lower pole renal stone, previously 3 mm increased in size from prior ultrasound 01/07/2022. Assessment & Plan Assessment & Plan (1) Bilateral kidney stones: Code(s): N20.0 - Calculus of kidney Category: Medical Plan Encouraged the patient to consume adequate amount of fluids. Vitamin B6 100 mg daily, cont to monitor Kidney stones Orders: Orders CT abdomen pelvis wo IV con 8 Months N20.0 - Calculus of kidney Patient Instructions: The patient had an opportunity to ask questions regarding treatment plan. The patient expressed understanding and agreement with the above treatment plan. The patient is aware they should contact our office by phone for worsening of their current condition or the appearance of new symptoms. Compliance is encouraged with any medications and followup testing that is ordered. It is a privilege to be allowed the opportunity to participate in the urologic care of your patient. If you have any questions or concerns regarding treatment for the above conditions please do not hesitate to contact me. The office telephone contact is [phone]. This note is constructed in part using voice recognition software. While every effort has been made to ensure accuracy rabbler errors may have been included. Yours sincerely, Blake Esparza MD Coding Level of Care Code Tele Est Pt Level 3 (08806) Diagnoses Bilateral kidney stones N20.0
== END 2024-02-23 12:11 | disposition home or self-care (01) ==
LOC: HO.HUSH 11:35
PROVIDERS: PCP Internal Medicine; Visit Provider Urology
DX: N20.0 Calculus of kidney (principal)
CPT/HCPCS: 99213

== ENCOUNTER → 2024-02-23 11:35 | Outpatient (BNVA) | payer MEDICAID, SELFPAY | PROVIDERS: PCP Internal Medicine; Visit Provider Urology | DX: N20.0 Calculus of kidney (principal) ==

== ENCOUNTER → 2024-06-13 08:17 | Outpatient (BNVA) | payer MEDICAID, SELFPAY | PROVIDERS: PCP Internal Medicine; Visit Provider Internal Medicine | DX: R42 Dizziness and giddiness (principal); R55 Syncope and collapse | CPT/HCPCS: 99202 ==

== ENCOUNTER → 2024-06-21 08:00 | Outpatient (REF) | payer MEDICAID, SELFPAY ==
--- NOTE | 2024-06-21 08:03 | CA_ITS ---
Transthoracic Echocardiogram Patient (Last, First, Middle): Linda Hammer, Gender: Female Date of : 1990 Age: 33 Procedure Date: 06/21/2024 Procedure Type: Transthoracic Echocardiogram Location: OP Height: 167.64 cm Weight: 111.13 kg BSA: 2.18 m2 Heart Rate: bpm BP: 110 / 60 mmHg Sewer Separation Designer: Referring MD: Kvng Brooke MD Visual Merchandising Specialist: Turner Jones MD Symptoms: R42 - Dizziness and giddiness Study Quality: Good ECG Rhythm: Sinus Conclusions: - Normal study Findings Left Ventricle Normal left ventricular size, thickness, and systolic function. The visually estimated ejection fraction is between 65-70%. Diastolic function is normal for age. Right Ventricle Normal right ventricular cavity size and systolic function. Atria Both atria are normal in size. There is no evidence of interatrial shunt. Aortic Valve Normal aortic valve structure and function. There is no aortic valve stenosis. There is no aortic valve regurgitation. Mitral Valve Normal mitral valve structure and function. There is trace mitral valve regurgitation. There is no mitral valve stenosis. Pulmonic Valve The pulmonic valve is likely normal. Tricuspid Valve Normal tricuspid valve structure. There is trace tricuspid valve regurgitation. The right ventricular systolic pressure is normal. The right ventricular systolic pressure is 25 mmHg. Normal right atrial pressure. There is no evidence of pulmonary hypertension. Great Vessels All visible segments of the aorta are normal in size. The visualized portions of the pulmonary artery and branches are normal. Venous The inferior vena cava is normal in size and collapses greater than 50% with inspiration. Pericardium/Pleural There is no evidence of pericardial effusion. Prior Study Comparison No prior study available for comparison. Measurements 2D Linear Measurements IVSd: 1.08 0.6-0.9/0.6-1.0 cm LVIDd: 4.46 3.9-5.3/4.2-5.9 cm LVIDd Index: 2.05 2.4-3.2/2.2-3.1 cm/m2 LVIDs: 2.96 2.0-3.6 cm LVPWd: 0.97 0.7-1.1 cm Ao Root: 2.60 2.1-3.5 cm LA Diam: 3.80 2.7-3.8/3.0-4.0 cm LAIDs Index: 1.74 1.5-2.3 cm/m2 LV Mass: 194.80 67-162/88-224 g LV Mass Index: 89.36 43-95/49-115 g/m2 LVOT Diam: 1.90 3.0+(-)1.3 cm 2D Systolic Function EF 4C: 66.70 >55% EF 2C: 65.20 >55% EF BiP: 65.40 >55% Mitral Valve MV Pk E: 0.83 MV PK A: 0.59 MV Decel Time: 200.00 E/A: 1.40 E'Lateral: 14.60 E'Medial: 9.03 E/E' Med: 9.20 E/E' Lat: 5.70 PHT: 59.00 MVA PHT: 3.73 Decel Corson: 4.13 Aortic Valve AoV Pk Shawn: 1.18 AoV Pk Grad: 6.00 LVOT LVOT Pk Shawn: 1.05 LVOT Mn Shawn: 0.66 LVOT VTI: 0.24 LVOT Pk Grad: 4.00 LVOT Mn Grad: 2.00 LVOT Diam: 1.90 LVOT Area: 2.84 Diastolic Function MV Pk E: 0.83 MV Pk A: 0.59 E/A: 1.40 E'Medial: 9.03 E/E' Med: 9.20 E' Laterial: 14.60 E/E' Lat: 5.70 Right Ventricle TAPSE (mm): 24.00 TVS' Shawn: 10.00 Tricuspid Valve TR Pk Shawn: 2.35 TR Pk Grad: 22.00 RA Press: 3.00 RVSP: 25.00 Great Vessels Aorta Ao Root-2D: 2.60 2.0-3.7 cm Ao Asc: 2.50 2.1-3.4 cm Pulmonary Valve PV Pk Shawn: 1.06 Peak PV Grad: 4.00 Updated in Other Vendor System with Status of Final Turner Jones MD electronically signed on 06/22/2024 12:08:20 PM with status of Final
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
--- OUTSIDE RECORDS SUMMARY | 2024-06-21 08:04 | XMS_ITS | Encounter Summary ---
Author Organization [facility] Address [address] [place] [address] Care Team Providers Care Rn Transitional Name Role Phone Lorna Souza MD Primary Care Provide r Reason for Visit * Consultation (Routine) - Authorized Specialty Diagnoses / Procedures Referred By Piyush ramírez Referred To Contact Physical Therapy Diagnoses Post-operative state Jesus Manuel Saenz DPM [address] [facility] [address] [place] [address] Phone: tel: fax: Referral ID Status Reason Start Date Expiration Date Visits Requested Visits Authorized [id number] Authorized Consult and Treat 04/16/2024 04/16/2025 20 20 Encounter Details Date Type Department Care Team (Late st Contact Info) Description 06/06/2024 1:00 PM EST Treatment [facility] [address] [phone] Nolberto Perez PTA Post-operative state (Primary Dx) Social History Tobacco Use Types Packs/Day Years Used Date Smoking Tobacco: Never Assessed Comments Unknown Sex and Gender Information Value Date Recorded Sex Assigned at Not on file Legal Sex Female 9:43 AM EST Gender Identity Not on file Sexual Orientation Not on file documented as of this encounter Progress Notes * Nolberto Perez PTA - 06/06/2024 1:00 PM EST [facility] - Outpatient PHYSICAL THERAPY DAILY TREATMENT NOTE - OP Date: 06/06/2024 Visit Number: 8 Patient Name: Linda Hammer : 1990 Age: 33 y.o. Gender: female Diagnosis: ICD-10-CM ICD-9-CM 1. Post-operative state Z98.890 V45.89 Date of Onset/Surgery: Multiple active episodes found Referring Provider: Jesus Manuel Saenz DPM Insurance: Pay[place] / Plan[place] / Product Type: *No Product type* / Patient Identified by: Nolberto Perez PTA Language: Spanish Medications: Current Outpatient Medications on File Prior to Visit Medication Sig Dispense Refill acetaminophen (TYLENOL) 325 mg tablet Take 2 Tablets by mouth every 6 hours as needed for Pain (mild to moderate pain) for up to 10 days ibuprofen (ADVIL,MOTRIN) 800 mg tablet Take 1 Tablet by mouth every 8 hours for 30 days ondansetron (ZOFRAN) 4 mg tablet Take 1 Tablet by mouth every 8 hours as needed for Nausea for up to 7 days oxyCODONE (ROXICODONE) 5 mg immediate release tablet Take one tablet every 6 hours as needed for pain No current facility-administered medications on file prior to visit. Allergies: has No Known Allergies. Precautions: none Fall risk: no Patient/Caregiver Goals: SUBJECTIVE Subjective Report: doing alittle better, but my left calf is still sore and hard Chart Reviewed: Yes Pain Right ankle clicking no sxs TREATMENT INTERVENTION: Nustep x6 min level 6 Slant board x3 Standing hamstring stretching x3 Standing knee flexion in True, 6 x 10 secs ea leg Lateral stepping with blue tband at ankles x 10 feet x [address]-did not perform Heel raises x20 Mini squats holding // bar x20 short of pain- did not perform Forward step ups onto 8 n step, x20ea on ea- did not perform Man resisted R ankle PF, Inv, Ev 2x 10 ea- did not perform Leg press 5 cords uni 2x10 ea- did not perform Stm left gastroc in prone Reviewed gastroc stretching in wall for HEP ASSESSMENT/Response to Treatment Fatigued with exercises today, still lacking toe off during gait PLAN POC Development/Review: No Change in the Plan of Care; Participants: Patient Total Treatment Time: 30 Modalities: Therapeutic procedures: Manual Therapy Time Entry: 15 Therapeutic Exercise Time Entry: 15 Documentation completed by Nolberto Perez PTA documented in this encounter Plan of Treatment Upcoming Encounters Date Type Department Care Team (Late st Contact Info) Description 06/24/2024 12:30 PM EST Treatment [facility] [address] [place] [phone] Rickey aBnda, PT 10/01/2024 1:30 PM EDT Office Visit [facility] [address] [facility] [address] [facility] [address] [place] [phone] Jesus Manuel Saenz, DPM [address] [facility] [address] [place] [address] documented as of this encounter Goals Goal Patient Goal Type Associated Problems Recent Progress Patient-Stated? Author LTGs General No Rickey Banda, PT Note: Pt will ascend/descend 12 steps with reciprocal stepping pattern and no right ankle/foot pain - met Pt will increase right ankle strength to 5/5 throughout - not met Pt will complete 6 minute walk without right foot/ankle pain - not met Pt will complete 4 hours of work shift without right foot/ankle pain - met Pt will be independent with HEP documented as of this encounter Visit Diagnoses Diagnosis Post-operative state- Primary Other postprocedural status documented in this encounter Care Teams Rn Transitional Relationship Specialty Start Date End Date Lorna Souza MD [address] [facility] [address] [place] [phone] PCP - General 11/08/23 documented as of this encounter
--- OUTSIDE RECORDS SUMMARY | 2024-06-21 08:04 | XMS_ITS | Encounter Summary ---
Author Organization [facility] Address [address] [place] [address] Care Team Providers Care Resourcing Advisor Name Role Phone Lorna Souza MD Primary Care Provide r Reason for Visit * Consultation (Routine) - Authorized Specialty Diagnoses / Procedures Referred By Contcarlos ramírez Referred To Contact Physical Therapy Diagnoses Post-operative state Jesus Manuel Saenz DPM 175 [facility] [address] [place] [address] Phone: tel: fax: Referral ID Status Reason Start Date Expiration Date Visits Requested Visits Authorized [id number] Authorized Consult and Treat 04/16/2024 04/16/2025 20 20 Encounter Details Date Type Department Care Team (Latest Contact Info) Description 06/05/2024 1:15 PM EST Treatment [facility] [address] [phone] Rickey Banda, PT Closed dislocation of tarsometatarsal joint, right, sequela (Primary Dx) Social History Tobacco Use Types Packs/Day Years Used Date Smoking Tobacco: Never Assessed Comments Unknown Sex and Gender Information Value Date Recorded Sex Assigned at Not on file Legal Sex Female 9:43 AM EST Gender Identity Not on file Sexual Orientation Not on file documented as of this encounter Progress Notes * Rickey Banda, PT - 06/05/2024 1:15 PM EST [facility] - Outpatient PHYSICAL THERAPY PROGNESS NOTE - OP Date: 06/05/2024 Visit Number: 7 Patient Name: Linda Hammer : 1990 Age: 33 y.o. Gender: female Diagnosis: ICD-10-CM ICD-9-CM 1. Closed dislocation of tarsometatarsal joint, right, sequela S93.324S 905.6 Date of Onset/Surgery: Multiple active episodes found Referring Provider: Jesus Manuel Saenz DPM Insurance: Pay[place] / Plan[place] / Product Type: *No Product type* / Patient Identified by: Rickey Banda, PT Language: Czech Medications: Current Outpatient Medications on File Prior [...] visit. Allergies: has No Known Allergies. Precautions: Fall risk: No Patient/Caregiver Goals: SUBJECTIVE Subjective Report: Pt rpeorts decreasing pain of right foot/ankle with activity. Pt reports typically no pain for first four hours of work day. She continues to experience right foot pain when on ball of foot and WB. Pt states increased left calf soreness after last visits exercises Chart Reviewed: Yes Pain Right foot 4/10 OBJECTIVE TREATMENT INTERVENTION: Modalities: None performed Procedures: Pt completing 1100 ft ambulating distance in 6 minutes with right foot pain 2/10 Ascend/descend 12 steps with reciprocal stepping pattern, no UE support and no right foot pain Right ankle strength DF, InV, EV 5/5. Pt unable to complete one rep of RLE singlle-leg heel raise due to pain of forefoot when attempting ASSESSMENT/Response to Treatment Good Pt progressing well. Will schedule 6 additionall visits to advance WB exercises of RLE, including single leg heel raise progression GOALS Goals Addressed This Visit's Progress LTGs Pt will ascend/descend 12 steps with reciprocal stepping pattern and no right ankle/foot pain - met Pt will increase right ankle strength to 5/5 throughout - not met Pt will complete 6 minute walk without right foot/ankle pain - not met Pt will complete 4 hours of work shift without right foot/ankle pain - met Pt will be independent with HEP Patient Education: Education provided: Yes Education Provided To: Patient utilizing Explanation mode(s) of education Response to Education: Verbal Understanding PLAN POC Development/Review: Changes in the Plan of Care; Participants: Patient 6 additional visits Total Treatment Time: 15 Modalities: Therapeutic procedures: Therapeutic Exercise Time Entry: 15 Documentation completed by Rickey Banda PT documented in this encounter Plan of Treatment Upcoming Encounters Date Type Department Care Team (Late st Contact Info) Description 06/24/2024 12:30 PM EST Treatment [facility] 175 [facility] [address] [place] [phone] Rickey Banda PT 10/01/2024 1:30 PM EDT Office Visit Orthopedic Surgery - [place] [address] 175 [facility] [address] [place] [phone] Jesus Manuel Saenz, DPM 175 [facility] [address] [place] [address] documented as of this encounter Goals Goal [...] as of this encounter Visit Diagnoses Diagnosis Closed dislocation of tarsometatarsal joint, right, sequela- Primary documented in this encounter Care Teams Resourcing Advisor Relationship Specialty Start Date End Date Lorna Souza MD 230 [facility] [address] [place] [phone] PCP - General 11/08/23 documented as of this encounter
--- OUTSIDE RECORDS SUMMARY | 2024-06-21 08:04 | XMS_ITS | Encounter Summary ---
Author Organization [facility] Address [address] [place] [address] Care Team Providers Care Senior Analytical Chemist Name Role Phone Lorna Souza MD Primary Care Provide r Reason for Visit * Consultation (Routine) - Authorized Specialty Diagnoses / Procedures Referred By Piyush ramírez Referred To Contact Physical Therapy Diagnoses Post-operative state Jesus Manuel Saenz DPM 175 [facility] [address] [place] [address] Phone: tel: fax: Referral ID Status Reason Start Date Expiration Date Visits Requested Visits Authorized [id number] Authorized Consult and Treat 04/16/2024 04/16/2025 20 20 Encounter Details Date Type Department Care Team (Late st Contact Info) Description 06/11/2024 1:30 PM EST Treatment [address] [address] Nolberto Perez PTA Social History Tobacco Use Types Packs/Day Years Used Date Smoking Tobacco: Never Assessed Comments Unknown Sex and Gender Information Value Date Recorded Sex Assigned at Not on file Legal Sex Female 9:43 AM EST Gender Identity Not on file Sexual Orientation Not on file documented as of this encounter Progress Notes * Nolberto Perez PTA - 06/11/2024 1:30 PM EST [facility] - Outpatient PHYSICAL THERAPY DAILY TREATMENT NOTE - OP Date: 06/11/2024 Visit Number: 9 Patient Name: Linda Hammer : 1990 Age: 33 y.o. Gender: female Diagnosis: No diagnosis found. Date of Onset/Surgery: Multiple active episodes found Referring Provider: Jesus Manuel Saenz DPM Insurance: Pay[place] / Plan[place] / Product Type: *No Product type* / Patient Identified by: Nolberto Perez PTA Language: Tunisian Medications: Current Outpatient Medications on File Prior [...] ea way-did not perform Heel raises x20 5 sec holds Mini squats holding // bar x20 short of pain Forward step ups onto 8 n step, x20ea on ea Man resisted R ankle PF, Inv, Ev 2x 10 ea- did not perform Leg press 5 cords uni 2x10 ea- did not perform Reviewed gastroc stretching in wall for HEP ASSESSMENT/Response to Treatment Fatigued with exercises today, still lacking toe off during gait PLAN POC Development/Review: No Change in the Plan of Care; Participants: Patient Total Treatment Time: 30 Modalities: Therapeutic procedures: Documentation completed by Nolberto Perez PTA documented in this encounter Plan of Treatment Upcoming Encounters Date Type Department Care Team (Late st Contact Info) Description 06/24/2024 12:30 PM EST Treatment [facility] - [place] 175 [facility] [address] [place] [phone] Rickey Banda, PT 10/01/2024 1:30 PM EDT Office Visit Orthopedic Surgery - [place] 250 175 [facility] [address] [place] [phone] Jesus Manuel Saenz, DPM 175 [facility] [address] [place] [address] documented as of this encounter Goals Goal [...] documented as of this encounter Visit Diagnoses Not on filedocumented in this encounter Care Teams Senior Analytical Chemist Relationship Specialty Start Date End Date Lorna Souza MD 230 [facility] 1 [place] [address] PCP - General 11/08/23 documented as of this encounter
--- OUTSIDE RECORDS SUMMARY | 2024-06-21 08:05 | XMS_ITS | Encounter Summary ---
Author Organization [facility] Address [address] [place] [address] Care Team Providers Care Brake Lining Driller Name Role Phone Lorna Souza MD Primary Care Provide r Reason for Visit * Consultation (Routine) - Authorized Specialty Diagnoses / Procedures Referred By Piyush ramírez Referred To Contact Physical Therapy Diagnoses Post-operative state Jesus Manuel Saenz DPM 175 [facility] [address] [place] [address] Phone: tel: fax: Referral ID Status Reason Start Date Expiration Date Visits Requested Visits Authorized [id number] Authorized Consult and Treat 04/16/2024 04/16/2025 20 20 Encounter Details Date Type Department Care Team (Late st Contact Info) Description 06/13/2024 1:00 PM EST Treatment [facility] [address] [address] Nolberto Perez PTA Post-operative state (Primary Dx) Social History Tobacco Use Types Packs/Day Years Used Date Smoking Tobacco: Never Assessed Comments Unknown Sex and Gender Information Value Date Recorded Sex Assigned at Not on file Legal Sex Female 9:43 AM EST Gender Identity Not on file Sexual Orientation Not on file documented as of this encounter Progress Notes * Nolberto Perez PTA - 06/13/2024 1:00 PM EST [facility] [place] - Outpatient PHYSICAL THERAPY DAILY TREATMENT NOTE - OP Date: 06/13/2024 Visit Number: 10 Patient Name: Linda Hammer : 1990 Age: 33 y.o. Gender: female Diagnosis: ICD-10-CM ICD-9-CM 1. Post-operative state Z98.890 V45.89 Date of Onset/Surgery: Multiple active episodes found Referring Provider: Jesus Manuel Saenz DPM Insurance: Pay[place] / Plan[place] / Product Type: *No Product type* / Patient Identified by: Nolberto Perez PTA Language: Japanese Medications: Current Outpatient Medications on File Prior [...] sore and hard Chart Reviewed: Yes Pain No current sxs TREATMENT INTERVENTION: Nustep x6 min level 6 Slant board x3 Standing hamstring stretching x3 Standing knee flexion in True, 6 x 10 secs ea leg Heel raises x20 5 sec holds Mini squats holding // bar [id number] of pain Forward step ups onto 8 n step, x20ea on ea Reviewed gastroc stretching in wall for HEP ASSESSMENT/Response to Treatment Tolerated exercises w/o sxs PLAN POC Development/Review: No Change in the Plan of Care; Participants: Patient Total Treatment Time: 25 Modalities: Therapeutic procedures: Therapeutic Exercise Time Entry: 25 Documentation completed by Nolberto Perez PTA documented in this encounter Plan of Treatment Upcoming Encounters Date Type Department Care Team (Late st Contact Info) Description 06/24/2024 12:30 PM EST Treatment [address] [phone] Rickey Banda, PT 10/01/2024 1:30 PM EDT Office Visit Orthopedic Surgery - [place] 250 175 [facility] 250 [place] [phone] Jesus Manuel Saenz, DPM 175 [facility] [address] [place] [address] documented as of this encounter Goals Goal [...] status documented in this encounter Care Teams Brake Lining Driller Relationship Specialty Start Date End Date Lorna Souza MD 230 [facility] 1 [place] [address] PCP - General 11/08/23 documented as of this encounter
--- OUTSIDE RECORDS SUMMARY | 2024-06-21 08:05 | XMS_ITS | Encounter Summary ---
Author Organization [facility] Address [address] [place] [address] Care Team Providers Care Complex Director Name Role Phone Lorna Souza MD Primary Care Provide r Reason for Visit * Consultation (Routine) - Authorized Specialty Diagnoses / Procedures Referred By Piyush ramírez Referred To Contact Physical Therapy Diagnoses Post-operative state Jesus Manuel Saenz DPM 175 [facility] 250 [place] [address] Phone: tel: fax: Referral ID Status Reason Start Date Expiration Date Visits Requested Visits Authorized [id number] Authorized Consult and Treat 04/16/2024 04/16/2025 20 20 Encounter Details Date Type Department Care Team (Latest Contact Info) Description 05/29/2024 1:00 PM EST Treatment [facility] 175 [facility] 350 [place] [address] Nolberto Perez THERMOMETER TESTER Closed dislocation of tarsometatarsal joint, right, sequela [...] Progress Notes * Nolberto Perez PTA - 05/29/2024 1:00 PM EST [facility] - Outpatient PHYSICAL THERAPY DAILY TREATMENT NOTE - OP Date: 05/29/2024 Visit Number: 5 Patient Name: Linda Hammer : 1990 Age: 33 y.o. Gender: female Diagnosis: ICD-10-CM ICD-9-CM 1. Closed dislocation of tarsometatarsal joint, right, sequela S93.324S 905.6 Date of Onset/Surgery: Multiple active episodes found Referring Provider: Jesus Manuel Saenz DPM Insurance: Pay[place] / Plan[place] / Product Type: *No Product type* / Patient Identified by: Nolberto Perez PTA Language: Danish Medications: Current Outpatient Medications on File Prior [...] risk: no Patient/Caregiver Goals: SUBJECTIVE Subjective Report: unablelto go up on my toes on right foot Chart Reviewed: Yes Pain Right 1st digit pains 5-6/10 TREATMENT INTERVENTION: Nustep x6 min level 5 Slant board x3 Standing hamstring stretching x3 [...] R ankle PF, Inv, Ev 2x 10 ea Leg press 4 cords uni right 2x10 Reviewed gastroc stretching in wall for HEP ASSESSMENT/Response to Treatment Fair still very challenged with toe off PLAN POC Development/Review: No Change in the Plan of Care; Participants: Patient Total Treatment Time: 30 Modalities: Therapeutic procedures: Documentation completed by Nolberto Perez PTA documented in this encounter Plan of Treatment Upcoming Encounters Date Type Department Care Team (Late st Contact Info) Description 06/24/2024 12:30 PM EST Treatment [facility] [place] 175 [facility] 350 [place] [phone] Rickey Banda, PT 10/01/2024 1:30 PM EDT Office Visit Orthopedic Surgery - [place] [address] 175 [facility] 250 [place] [phone] Jesus Manuel Saenz, DPM 175 [facility] [address] [place] [address] documented as of this encounter Goals Goal [...] Primary documented in this encounter Care Teams Complex Director Relationship Specialty Start Date End Date Lorna Souza MD 230 [facility] 1 [place] [address] PCP - General 11/08/23 documented as of this encounter
--- OUTSIDE RECORDS SUMMARY | 2024-06-21 08:05 | XMS_ITS | Encounter Summary ---
Author Organization [facility] Address [address] [place] [address] Care Team Providers Care Grout Worker Name Role Phone Lorna Souza MD Primary Care Provide r Reason for Visit * Consultation (Routine) - Authorized Specialty Diagnoses / Procedures Referred By Piyush ramírez Referred To Contact Physical Therapy Diagnoses Post-operative state Jesus Manuel Saenz DPM 175 [facility] 250 [place] [address] Phone: tel: fax: Referral ID Status Reason Start Date Expiration Date Visits Requested Visits Authorized [id number] Authorized Consult and Treat 04/16/2024 04/16/2025 20 20 Encounter Details Date Type Department Care Team (Latest Contact Info) Description 05/27/2024 11:00 AM EST Treatment [facility] [address] [phone] Nolberto Perez SALES [employer] Closed dislocation of tarsometatarsal joint, right, sequela [...] Progress Notes * Nolberto Perez PTA - 05/27/2024 11:00 AM EST [facility] - Outpatient PHYSICAL THERAPY DAILY TREATMENT NOTE - OP Date: 05/27/2024 Visit Number: 4 Patient Name: Linda Hammer : 1990 Age: 33 y.o. Gender: female Diagnosis: ICD-10-CM ICD-9-CM 1. Closed dislocation of tarsometatarsal joint, right, sequela S93.324S 905.6 Date of Onset/Surgery: Multiple active episodes found Referring Provider: Jesus Manuel Saenz DPM Insurance: [place] / Product Type: *No Product type* / Patient Identified by: Nolberto Perez PTA Language: Belarusian Medications: Current Outpatient Medications on File Prior [...] risk: no Patient/Caregiver Goals: SUBJECTIVE Subjective Report: it feels like my knee is rubbing the wrong way. Chart Reviewed: Yes Pain Right knee and achilles soreness 3-08/15 TREATMENT INTERVENTION: Nustep x6 min level 5 Slant board x3 Standing hamstring stretching x3 Standing knee flexion in True, 6 x 10 secs ea leg Lateral stepping with blue tband at ankles x 10 feet x [address] Heel raises x20 5 sec holds Mini squats holding // bar x20 short of pain Forward step ups onto 8 n step, x20ea on right Man resisted R ankle PF, Inv, Ev 2x 10 ea Passive R foot ankle flexion/ext Reviewed gastroc stretching in wall for HEP ASSESSMENT/Response to Treatment Fair right ankle swelling and increased right knee pains pre and post session PLAN POC Development/Review: No Change in the Plan of Care; Participants: Patient Total Treatment Time: 30 Modalities: Therapeutic procedures: Documentation completed by Nolberto Perez PTA documented in this encounter Plan of Treatment Upcoming Encounters Date Type Department Care Team (Late st Contact Info) Description 06/24/2024 12:30 PM EST Treatment [facility] [place] [address] [place] [phone] Rickey Banda, PT 10/01/2024 1:30 PM EDT Office Visit Orthopedic Surgery - [place] [address] [facility] [address] [place] [phone] Jesus Manuel Saenz, DPNelda 175 [facility] 250 [place] [address] documented as of this encounter Goals Goal [...] Primary documented in this encounter Care Teams Grout Worker Relationship Specialty Start Date End Date Lorna Souza MD 230 [facility] 1 [place] [address] PCP - General 11/08/23 documented as of this encounter
--- OUTSIDE RECORDS SUMMARY | 2024-06-21 08:05 | XMS_ITS | Encounter Summary ---
Author Organization [facility] Address [address] [place] [address] Care Team Providers Care Scleroscope Tester Name Role Phone Lorna Souza MD Primary Care Provide r Reason for Visit * Reason Comments Post-op status post right OR IF tarsometatarsal dislocation with fusion. Encounter Details Date Type Department Care Team (Late st Contact Info) Description 05/30/2024 9:30 AM EST Office Visit Orthopedic Surgery - [place] [address] [address] Jesus Manuel Saenz DPM [address] [address] Post-operative state (Primary Dx) Social History Tobacco Use Types Packs/Day Years Used Date Smoking Tobacco: Never Assessed Comments Unknown Sex and Gender Information Value Date Recorded Sex Assigned at Not on file Legal Sex Female 9:43 AM EST Gender Identity Not on file Sexual Orientation Not on file documented as of this encounter Last Filed Vital Signs Vital Sign Reading Time Taken Comments Blood Pressure - - Pulse - - Temperature - - Respiratory Rate - - Oxygen Saturation - - Inhaled Oxygen Concentration - - Weight 83.9 kg (185 lb) 05/30/2024 9:32 AM EST Height 167.6 cm (5' 5.98 ) 05/30/2024 9:32 AM ES T Body Mass Index 29.87 05/30/2024 9:32 AM EST documented in this encounter Progress Notes * Jesus Manuel Saenz DPM - 05/30/2024 9:30 AM EST Referring MD: [place] IDENTIFIER: @TITLE@ Jaquelin is a 33 y.o. year old female who presents for consultation. CC: Right foot postop HPI: 33-year-old female is 3 months status post right ORIF tarsometatarsal dislocation with fusion. He continues with physical therapy and notes that she does get some pain to the forefoot when going ontoher tiptoes. Patient notes she continues to have some pain around the back of her Achilles tendon. ROS: GENERAL: Pt denies nausea, fever, vomiting, chills, or shortness of breath. Pt in NAD. CARDIOLOGY: pt denies chest pain, palpitations LUNGS: pt denies shortness of breath MUSCULOSKELETAL: See HPI, otherwise no joint pain or swelling, back pain, or muscle pain. SKIN: see HPI, otherwise no lesions, rash or itching NEURO: No persistent headache, weakness or numbness The remainder of the review of systems is noncontributory PAST MEDICAL HISTORY: There is no problem list on file for this patient. SOCIAL HISTORY: Social History Tobacco Use Smoking status: Not on file Smokeless tobacco: Not on file Substance Use Topics Alcohol use: Not on file ACTIVE MEDICATIONS: Outpatient Medications Marked as Taking for the 05/30/24 encounter (Office Visit) with Jesus Manuel Saenz DPM Medication Sig Dispense Refill acetaminophen (TYLENOL) 325 [...] every 6 hours as needed for pain ALLERGIES: @ALL@ PHYSICAL EXAM: Height 1.676 m (65.98 ), weight 83.9 kg (185 lb). PODIATRIC EXAMINATION: GENERAL: Patient appears well nourished, with NAD. VASCULAR: Dorsalis pedis pulses are 2/4 bilaterally and Posterior tibial pulses are 2/4 bilaterally. Capillary filling time within normal limits the digits. No pallor on elevation or rubor on dependency. Positive hair growth. No varicosities. Denies rest pain or claudication pain. NEUROLOGICAL: Sharp/dull sensation intact, protective sensation intact 10/10 with 5.07 semmes matt bilaterally, vibratory sensation with tuning fork intact to the tibial tuberosity. ORTHOPEDIC: Good muscle strength 5/5 of all flexors and extensors. Dorsi flexion of ankle ,10 degrees, plantar flexion WNL. No muscle atrophy. No pain on palpation of the midtarsal joint. Continued pain along the mid substance aspect of the Achilles tendon. No pain on range of motion off weightbearing to the lesser digits though there is pain on palpation of the metatarsal heads to the right foot DERMATOLOGICAL:.Skin is healed. BIOMECHANICS: STJ ROM wnl, MTJ ROM wnl, 1st MPJ ROM wnl. IMAGING: Hardware is in place without subsidence or retraction. Fracture sites appear to be healed no change in position of the hardware. Rectus alignment of the foot IMPRESSION: 1. Post-operative state PLAN: Pt was seen and examined, history reviewed. Patient is now s/p right foot ORIF tarsometatarsal second and third metatarsal Patient continues to ambulate and go through daily activity level without difficulty Patient was educated that she will continue to heal and decrease swelling over the next 6 months. Patient understands that scar tissue will resolve over the next 6 months as well. Patient was encouraged to go through her continued strengthening exercises and follow-up with physical therapy until she returns to her activity level Jesus Manuel Saenz DPM documented in this encounter Plan of Treatment Upcoming Encounters Date Type Department Care Team (Late st Contact Info) Description 06/24/2024 12:30 PM EST Treatment [facility] Outpatient [facility] - [place] 175 [facility] 350 [place] [phone] Rickey Banda, PT 10/01/2024 1:30 PM EDT Office Visit Orthopedic Surgery - [place] 250 175 [facility] 250 [place] [phone] Jesus Manuel Saenz DPM 175 [facility] 250 [place] [address] documented as of this encounter Goals Goal [...] with HEP documented as of this encounter Results * XR Foot 3+ Views Right (05/30/2024 9:30 AM EST) Anatomical Region Laterality Modality Lower Extremities, Foot Right Computed Radiography Narrative 06/12/2024 7:59 PM EST Right foot 3 views weightbearing: Correction is maintained in good rectus alignment. Normal postoperative healing. us Jesus Manuel Saenz DPM IMG XR PROCEDURES Final Res ult documented in this encounter Visit Diagnoses Diagnosis Post-operative state- Primary Other postprocedural status documented in this encounter Care Teams Scleroscope Tester Relationship Specialty Start Date End Date Lorna Souza MD [address] [place] [phone] PCP - General 11/08/23 documented as of this encounter
--- OUTSIDE RECORDS SUMMARY | 2024-06-21 08:05 | XMS_ITS | Encounter Summary ---
Demographics Address [address] [place] [address] Home Phone Mobile Phone Email Address Preferred Language en Marital Status Single Islam Affiliation Unknown Race Unknown Ethnic Group or Author Organization [facility] Address [address] [place] [address] Support Name Relationship Address Phone Marquise Lemons Domestic partner [address] [place] [address] Care Team Providers Care Rn Stars Name Role Phone Dennis Souza MD Primary Care Provide r Reason for Referral * Imaging (Routine) - Pending Review Specialty Diagnoses / Procedures Referred By Contac t Referred To Contact Radiology Diagnoses Excessive and frequent menstruation with irregular cycle Dysmenorrhea, unspecified Hirsutism Procedures US Pelvis Transvaginal Non OB Dennis Souza MD [address] [address] Phone: tel: fax: Referral ID Status Reason Start Date Expiration Date V isits Requested Visits Authorized [id number] Pending Review 05/22/2024 05/22/2025 1 1 Reason for Visit * Imaging (Routine) - Pending Review Specialty Diagnoses / Procedures Referred By Piyush ramírez Referred To Contact Radiology Diagnoses Excessive and frequent menstruation with irregular cycle Dysmenorrhea, unspecified Hirsutism Procedures US Pelvis Non OB Complete US Pelvis Non OB Complete w Transvaginal Dennis Souza MD [address] [facility] 1 [place] [address] Phone: tel: fax: [facility] [place] Referral ID Status Reason Start Date Expiration Date V isits Requested Visits Authorized [id number] Pending Review 05/14/2024 05/14/2025 1 1 Encounter Details Date Type Department Care Team (Latest Contact Info) Description 05/22/2024 2:32 PM EST - 05/22/2024 11:59 PM EST Hospital Encounter [facility] OB Ultrasound [address] [place] [phone] Excessive and frequent menstruation with irregular cycle; Dysmenorrhea, unspecified; Hirsutism Discharge Disposition: Home or Self Care Social History Tobacco Use Types Packs/Day Years Used Date Smoking Tobacco: Never Assessed Comments Unknown Sex and Gender Information Value Date Recorded Sex Assigned at Not on file Legal Sex Female 9:43 AM EST Gender Identity Not on file Sexual Orientation Not on file documented as of this encounter Medications at Time of Discharge acetaminophen (TYLENOL) 325 mg tablet Take 2 [...] every 6 hours as needed for pain documented as of this encounter Discharge Disposition Disposition Code Departure Means Destination Home or Self Care documented in this encounter Plan of Treatment Upcoming Encounters Date Type Department Care Team (Late st Contact Info) Description 06/24/2024 12:30 PM EST Treatment [facility] [place] 175 [facility] [address] [place] [phone] Rickey Banda, PT 10/01/2024 1:30 PM EDT Office Visit Orthopedic Surgery - [place] 250 175 [facility] [address] [place] [address] Jesus Manuel Saenz DPM 175 [facility] 250 [place] [address] documented as of this encounter Goals Goal [...] with HEP documented as of this encounter Procedures Procedure Name Priority Date/Time Associated Diagnosis Comments US PELVIS NON OB COMPLETE Routine 05/22/2024 3:24 PM EST Excessive and frequent menstruation with irregular cycle Dysmenorrhea, unspecified Hirsutism US PELVIS TRANSVAGINAL NON OB Routine 05/22/2024 3:24 PM EST Excessive and frequent menstruation with irregular cycle Dysmenorrhea, unspecified Hirsutism documented in this encounter Results * US Pelvis Transvaginal Non OB (05/22/2024 3:24 PM EST) Anatomical Region Laterality Modality Body Ultrasound 05/22/2024 3:24 PM EST Narrative 05/22/2024 5:12 PM EST Female Pelvis ?(Signed Final 05/22/2024 05:12 pm) PATIENT INFO: ID #: ? [id number] ? : [birth year] (33 yrs)(F) Name: ? ERIN CANCINO ? Visit Date: 05/22/2024 03:24 pm PERFORMED BY: Attending: ?Kat Mohr MD Performed By: ? Roberta Lopez RDMS Referred By: ?DENNIS DANG M.D Ref. Address: ? [address] [place] [address] Location: ? [facility] Ultrasound (OBU) SERVICE(S) PROVIDED: US Pelvic and Transvaginal ?[id number], [id number] INDICATIONS: Polycystic Ovarian Syndrome (PCOS) ? E28.2 TECHNIQUE/SCAN QUALITY: Technique: ?A transabdominal and a transvaginal scan were ? completed at today's visit Scan Quality: ?? Satisfactory CLINICAL INFORMATION: Age: ?? 33 ?G: ?1 ? P: ?1 LMP: ?? 05/07/24 ?Day Of Cycle: ?? 16 Menses: ?Regular. Hormone Treatment: ? None. HISTORY: Cholecystectomy UTERUS: Size (cm) ?L: ??8.11 ?W: ?? 5.42 ? H: ??4.77 Vol(ml): ?109.78 Position: ?Retroverted, retroflexed. Comment: ? Normal appearance. Normal size and echotexture. ENDOMETRIUM: Thickness: ?? 6.1 ? mm Comment: ?The endometrial cavity is symmetric. ??The ? endometrial lining is regular. ??Single layer ? thickness measures 0.32 cm. CERVIX: No abnormality visualized. RIGHT OVARY: Size(cm): ?2.92 ? x ??2.94 ? x ??2.37 ?Vol(ml): ??10.65 Comment: ?The ovary is located between the uterus and the ? pelvic sidewall. There are multiple small peripheral ? follicles suggestive of polycystic ovarian syndrome. RIGHT ADNEXA: Comment: ?No abnormality visualized. LEFT OVARY: Size(cm): ?2.84 ? x ??2.27 ? x ??1.44 ?Vol(ml): ??4.86 Comment: ?The ovary is located between the uterus and the ? pelvic sidewall. ??There are multiple small peripheral ? follicles suggestive of polycystic ovarian syndrome. LEFT ADNEXA: Comment: ?No abnormality visualized. CUL-DE-SAC: There is trace free fluid in the cul de sac. BLADDER: Distended with regular contour. COMMENTS: Ms. Cancino is referred today for abnormal hair growth and question of PCOS. - The sonographic appearance of the ovaries may be suggestive of PCOS. Kat Mohr M.D Electronically Signed Final Report ?? 05/22/2024 05:12 pm Procedure Note Kat Mohr MD - 05/22/2024 Female Pelvis (Signed Final 05/22/2024 05:12 pm) PATIENT INFO: ID #: [id number] : [birth year] (33 yrs)(F) Name: ERIN CANCINO Visit Date: 05/22/2024 03:24 pm PERFORMED BY: Attending: Kat Mohr MD Performed By: Roberta Lopez RDMS Referred By: DENNIS DANG M.D Ref. Address: [address] [place] [id number] Location: [facility] Ultrasound (OBU) SERVICE(S) PROVIDED: US Pelvic and Transvaginal [id number], [id number] INDICATIONS: Polycystic Ovarian Syndrome (PCOS) E28.2 TECHNIQUE/SCAN QUALITY: Technique: A transabdominal and a transvaginal scan were completed at today's visit Scan Quality: Satisfactory CLINICAL INFORMATION: Age: 33 P: 1 LMP: 05/07/24 Day Of Cycle: 16 Menses: Regular. Hormone Treatment: None. HISTORY: Cholecystectomy UTERUS: Size (cm) L: 8.11 W: 5.42 H: 4.77 Vol(ml): 109.78 Position: Retroverted, retroflexed. Comment: Normal appearance. Normal size and echotexture. ENDOMETRIUM: Thickness: 6.1 mm Comment: The endometrial cavity is symmetric. The endometrial lining is regular. Single layer thickness measures 0.32 cm. CERVIX: No abnormality visualized. RIGHT OVARY: Size(cm): 2.92 x 2.94 x 2.37 Vol(ml): 10.65 Comment: The ovary is located between the uterus and the pelvic sidewall. There are multiple small peripheral follicles suggestive of polycystic ovarian syndrome. RIGHT ADNEXA: Comment: No abnormality visualized. LEFT OVARY: Size(cm): 2.84 x 2.27 x 1.44 Vol(ml): 4.86 Comment: The ovary is located between the uterus and the pelvic sidewall. There are multiple small peripheral follicles suggestive of polycystic ovarian syndrome. LEFT ADNEXA: Comment: No abnormality visualized. CUL-DE-SAC: There is trace free fluid in the cul de sac. BLADDER: Distended with regular contour. COMMENTS: Ms. Cancino is referred today for abnormal hair growth and question of PCOS. - The sonographic appearance of the ovaries may be suggestive of PCOS. Kat Mohr M.D Electronically Signed Final Report 05/22/2024 05:12 pm us Dennis Dang MD [facility] US PROCEDURES Fin al Result * US Pelvis Non OB Complete (05/22/2024 3:24 PM EST) Anatomical Region Laterality Modality Body, Pelvis Ultrasound 05/22/2024 3:24 PM EST Narrative 05/22/2024 5:12 PM EST Female Pelvis ?(Signed Final 05/22/2024 05:12 pm) PATIENT INFO: ID #: ? [id number] ? : ??[birth year] (33 yrs)(F) Name: ? ERIN CANCINO ? Visit Date: 05/22/2024 03:24 pm PERFORMED BY: Attending: ?Kat Mohr MD Performed By: ? Roberta Lopez RDMS Referred By: ?DENNIS DANG M.D Ref. Address: ? [address] [place] [address] Location: ? [facility] Ultrasound (OBU) SERVICE(S) PROVIDED: US Pelvic and Transvaginal ?[id number], [id number] INDICATIONS: Polycystic Ovarian Syndrome (PCOS) ? E28.2 TECHNIQUE/SCAN QUALITY: Technique: ?A transabdominal and a transvaginal scan were ? completed at today's visit Scan Quality: ?? Satisfactory CLINICAL INFORMATION: Age: ?? 33 ?G: ?1 ? P: ?1 LMP: ?? 05/07/24 ?Day Of Cycle: ?? 16 Menses: ?Regular. Hormone Treatment: ? None. HISTORY: Cholecystectomy UTERUS: Size (cm) ?L: ??8.11 ?W: ?? 5.42 ? H: ??4.77 Vol(ml): ?109.78 Position: ?Retroverted, retroflexed. Comment: ? Normal appearance. Normal size and echotexture. ENDOMETRIUM: Thickness: ?? 6.1 ? mm Comment: ?The endometrial cavity is symmetric. ??The ? endometrial lining is regular. ??Single layer ? thickness measures 0.32 cm. CERVIX: No abnormality visualized. RIGHT OVARY: Size(cm): ?2.92 ? x ??2.94 ? x ??2.37 ?Vol(ml): ??10.65 Comment: ?The ovary is located between the uterus and the ? pelvic sidewall. There are multiple small peripheral ? follicles suggestive of polycystic ovarian syndrome. RIGHT ADNEXA: Comment: ?No abnormality visualized. LEFT OVARY: Size(cm): ?2.84 ? x ??2.27 ? x ??1.44 ?Vol(ml): ??4.86 Comment: ?The ovary is located between the uterus and the ? pelvic sidewall. ??There are multiple small peripheral ? follicles suggestive of polycystic ovarian syndrome. LEFT ADNEXA: Comment: ?No abnormality visualized. CUL-DE-SAC: There is trace free fluid in the cul de sac. BLADDER: Distended with regular contour. COMMENTS: Ms. Cancino is referred today for abnormal hair growth and question of PCOS. - The sonographic appearance of the ovaries may be suggestive of PCOS. Kat Mohr M.D Electronically Signed Final Report ?? 05/22/2024 05:12 pm Procedure Note Kat Mohr MD - 05/22/2024 Female Pelvis (Signed Final 05/22/2024 05:12 pm) PATIENT INFO: ID #: [id number] : [birth year] (33 yrs)(F) Name: ERIN CANCINO Visit Date: 05/22/2024 03:24 pm PERFORMED BY: Attending: Kat Mohr MD Performed By: Roberta Lopez [facility] Referred By: DENNIS DANG M.D Ref. Address: [address] [place] [id number] Location: [facility] Ultrasound (OBU) SERVICE(S) PROVIDED: US Pelvic and Transvaginal 20400, [id number] INDICATIONS: Polycystic Ovarian Syndrome (PCOS) E28.2 TECHNIQUE/SCAN QUALITY: Technique: A transabdominal and a transvaginal scan were completed at today's visit Scan Quality: Satisfactory CLINICAL INFORMATION: Age: 33 P: 1 LMP: 05/07/24 Day Of Cycle: 16 Menses: Regular. Hormone Treatment: None. HISTORY: Cholecystectomy UTERUS: Size (cm) L: 8.11 W: 5.42 H: 4.77 Vol(ml): 109.78 Position: Retroverted, retroflexed. Comment: Normal appearance. Normal size and echotexture. ENDOMETRIUM: Thickness: 6.1 mm Comment: The endometrial cavity is symmetric. The endometrial lining is regular. Single layer thickness measures 0.32 cm. CERVIX: No abnormality visualized. RIGHT OVARY: Size(cm): 2.92 x 2.94 x 2.37 Vol(ml): 10.65 Comment: The ovary is located between the uterus and the pelvic sidewall. There are multiple small peripheral follicles suggestive of polycystic ovarian syndrome. RIGHT ADNEXA: Comment: No abnormality visualized. LEFT OVARY: Size(cm): 2.84 x 2.27 x 1.44 Vol(ml): 4.86 Comment: The ovary is located between the uterus and the pelvic sidewall. There are multiple small peripheral follicles suggestive of polycystic ovarian syndrome. LEFT ADNEXA: Comment: No abnormality visualized. CUL-DE-SAC: There is trace free fluid in the cul de sac. BLADDER: Distended with regular contour. COMMENTS: Ms. Cancino is referred today for abnormal hair growth and question of PCOS. - The sonographic appearance of the ovaries may be suggestive of PCOS. Kat Mohr M.D Electronically Signed Final Report 05/22/2024 05:12 pm us Dennis Dang MD IMG US PROCEDURES Fin al Result documented in this encounter Visit Diagnoses Diagnosis Excessive and frequent menstruation with irregular cycle Excessive or frequent menstruation Dysmenorrhea, unspecified Hirsutism documented in this encounter Care Teams Rn Stars Relationship Specialty Start Date End Date Dennis Souza MD [address] [phone] PCP - General 11/08/23 documented as of this encounter
--- OUTSIDE RECORDS SUMMARY | 2024-06-21 08:05 | XMS_ITS | Encounter Summary ---
Author Organization [employer] Address [address] [place] [address] 7 [place] [address] Care Team Providers Care Administrative Support Associate Name Role Phone Lorna Souza MD Primary Care Provide r Reason for Visit * Reason Onset Date Comments Appointment Request 08/23/2022 Encounter Details Date Type Department Care Team ([facility] st Contact Info) Description 08/23/2022 Telephone [facility] [address] [place] [address] Lorna Souza MD [address] [place] [address] Appointment Request Social History Tobacco Use Types Packs/Day Years Used Date Smoking Tobacco: Never Assessed Depression Answer Date Recorded Patient Health Questionnaire-9 [...] Access Q2 Not on file 01/05/2024 Comments Unknown Sex and Gender Information Value Date Recorded Sex Assigned at Female 03/07/2022 10:21 AM EDT Legal Sex Female 10:21 AM EDT Gender Identity Female 03/07/2022 10:21 AM EDT Sexual Orientation Choose not to disclose 2021 10:21 AM EDT COVID-19 Exposure Response Date Recorded In the last 10 days, have yo u been in contact with someone who was confirmed or suspected to have Coronavirus/COVID-19? 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 Please contact at [phone] documented in this encounter Plan of Treatment Upcoming Encounters Date Type Department Care Team (Late st Contact Info) Description 08/27/2024 9:15 AM EDT Office Visit [facility] [address] [place] [address] Lorna Souza MD [address] [place] [address] documented as of this encounter Visit Diagnoses Not on filedocumented in this encounter Care Teams Administrative Support Associate Relationship Specialty Start Date End Date Lorna Souza MD [address] [place] [address] PCP - General Family Medicine 01/17/18 documented as of this encounter
--- OUTSIDE RECORDS SUMMARY | 2024-06-21 08:05 | XMS_ITS | Encounter Summary ---
Author Organization [facility] Address [address] [place] [address] Care Team Providers Care Marking Clerk Name Role Phone Lorna Souza MD Primary Care Provide r Reason for Visit * Consultation (Routine) - Authorized Specialty Diagnoses / Procedures Referred By Piyush ramírez Referred To Contact Physical Therapy Diagnoses Post-operative state Jesus Manuel Saenz DPM 175 [facility] [address] [place] [address] Phone: tel: fax: Referral ID Status Reason Start Date Expiration Date Visits Requested Visits Authorized [id number] Authorized Consult and Treat 04/16/2024 04/16/2025 20 20 Encounter Details Date Type Department Care Team (Latest Contact Info) Description 05/22/2024 1:00 PM EST Treatment [facility] 175 [facility] [address] [place] [address] Nolberto Perez RIG HAND Closed dislocation of tarsometatarsal joint, right, sequela [...] Progress Notes * Nolberto Perez PTA - 05/22/2024 1:00 PM EST [facility] - Outpatient PHYSICAL THERAPY DAILY TREATMENT NOTE - OP Date: 05/22/2024 Visit Number: 3 Patient Name: Linda Hammer : 1990 Age: 33 y.o. Gender: female Diagnosis: ICD-10-CM ICD-9-CM 1. Closed dislocation of tarsometatarsal joint, right, sequela S93.324S 905.6 Date of Onset/Surgery: Multiple active episodes found Referring Provider: Jesus Manuel Saenz DPM Insurance: [place] / Product Type: *No Product type* / Patient Identified by: Nolberto Perez PTA Language: Tamazight Medications: Current Outpatient Medications on File Prior [...] Yes Pain Right knee and achilles soreness 6-11/14 TREATMENT INTERVENTION: Nustep x5 min level 5 Slant board x3 Standing hamstring stretching x3 Standing knee flexion in True, 6 x 10 secs ea leg Lateral stepping with blue tband at ankles x 10 feet x [address] Heel raises 2x10 Mini squats holding // bar x20 short of pain Forward step ups onto 6 in step, 2x5 ea side - focus on toe off with rear foot Man resisted R ankle PF, Inv, Ev 2x 10 ea Passive R foot ankle flexion/ext Reviewed gastroc stretching in wall for HEP CP x 10 mins post treatment at no charge\ ASSESSMENT/Response to Treatment Fair right ankle swelling and increased right knee pains pre and post session Patient Education: Education provided: Yes Education Provided To: Patient utilizing Explanation mode(s) of education Response to Education: Verbal Understanding PLAN POC Development/Review: No Change in the Plan of Care; Participants: Patient Total Treatment Time: 30 Modalities: Therapeutic procedures: Documentation completed by Nolberto Perez PTA documented in this encounter Plan of Treatment Upcoming Encounters Date Type Department Care Team (Late st Contact Info) Description 06/24/2024 12:30 PM EST Treatment [facility] [place] 175 [facility] [address] [place] [phone] Rickey Banda, PT 10/01/2024 1:30 PM EDT Office Visit Orthopedic Surgery - [place] 250 175 [facility] [address] [place] [phone] Jesus Manuel Saenz DPM 175 [facility] [address] [place] [address] documented as of this encounter Goals Goal [...] Primary documented in this encounter Care Teams Marking Clerk Relationship Specialty Start Date End Date Lorna Souza MD 230 [facility] 1 [place] [address] PCP - General 11/08/23 documented as of this encounter
--- OUTSIDE RECORDS SUMMARY | 2024-06-21 08:05 | XMS_ITS | Encounter Summary ---
Author Organization [employer] Address [address] [place] [address] [address] [place] [address] Care Team Providers Care Mash Filter Press Operator Name Role Phone Lorna Souza MD Primary Care Provide r Encounter Details Date Type Department Care Team ([facility] Contact Info) Description 02/02/2023 Abstract [facility] [address] [place] [address] [phone] Lorna Souza MD [address] [place] [address] [phone] Social History Tobacco Use Types Packs/Day Years Used Date Smoking Tobacco: Former Cigarettes Q uit: 09/21/2017 Smokeless Tobacco: Never Alcohol Use Standard Drinks/Week Comments Yes 5 (1 standard drink = 0.6 oz pur e alcohol) Depression Answer Date Recorded Patient Health Questionnaire-9 Score 25 09/21/2022 Depression Answer Date Recorded Patient Health Questionnaire-2 Score 5 09/21/2022 Comments Unknown Sex and Gender Information Value Date Recorded Sex Assigned at Female 03/07/2022 10:21 AM EDT Legal Sex Female 10:21 AM EDT Gender Identity Female 03/07/2022 10:21 AM EDT Sexual Orientation Choose not to disclose 2021 10:21 AM EDT documented as of this encounter Plan of Treatment Upcoming Encounters Date Type Department Care Team ([facility] Contact Info) Description 08/27/2024 9:15 AM EDT Office Visit [facility] [address] [place] [address] [phone] Lorna Souza MD 230 [place], [place] [phone] documented as of this encounter Procedures Procedure Name Priority Date/Time Associated Diagnosis Comments HM PAP/HPV Routine 09/20/2021 documented in this encounter Results * (ABNORMAL) Pap Smear (09/20/2021) Pap Epithelial cell abnormality(A ) Negative for intraephithelial lesion or malignancy, Other HPV Detected Historical Provider HEALTH MAINTENANCE Final Result documented in this encounter Visit Diagnoses Not on filedocumented in this encounter Additional Health Concerns Assessment Noted Time PHQ-9 Depression Total Score: 25 09/21/ 023 3:34 PM EDT documented as of this encounter Care Teams Mash Filter Press Operator Relationship Specialty Start Date End Date Lorna Souza MD 230 [place] [address] PCP - General Family Medicine 01/17/18 documented as of this encounter
--- OUTSIDE RECORDS SUMMARY | 2024-06-21 08:05 | XMS_ITS | Clinical Summary ---
Author Organization 175 [facility] Address 175 [place] [address] Phone Support Name Relationship Address Phone Marquise Lemons Domestic partner [address] [facility] [address] [place] [address] Care Team Providers Care Rumper Name Role Phone Dennis Souza MD Primary Care Provide r Allergies No known active allergies Medications ondansetron (ZOFRAN) 4 mg tablet Take 1 Tablet by mouth every 8 hours as needed for Nausea for up to 7 days Active oxyCODONE (ROXICODONE) 5 mg immediate release tablet Take one tablet every 6 hours as needed for pain Active ibuprofen (ADVIL,MOTRIN) 800 mg tablet Take 1 Tablet by mouth every 8 hours for 30 days Active acetaminophen (TYLENOL) 325 mg tablet Take 2 Tablets by mouth every 6 hours as needed for Pain (mild to moderate pain) for up to 10 days Active Encounters Date Type Department Care Team Description 06/13/2024 1:00 PM EST Treatment [address] [phone] Nolberto Perez, STRATEGIC CLIENT EXECUTIVE Post-operative state (Primary Dx) 06/11/2024 1:30 PM EST Treatment [address] [phone] Nolberto Perez, STRATEGIC CLIENT EXECUTIVE 06/06/2024 1:00 PM EST Treatment [address] [phone] Nolberto Perez, STRATEGIC CLIENT EXECUTIVE Post-operative state (Primary Dx) 06/05/2024 1:15 PM EST Treatment [facility] [address] [phone] Rickey Banda, PT Closed dislocation of tarsometatarsal joint, right, sequela (Primary Dx) 06/03/2024 1:00 PM EST Treatment [facility] [address] [phone] Nolberto Perez, STRATEGIC CLIENT EXECUTIVE Post-operative state (Primary Dx) 05/30/2024 9:30 AM EST Office Visit [facility] [place] 250 175 [facility] [place] 250 [place] [phone] Jesus Manuel Saenz, DPM Post-operative state (Primary Dx) 05/29/2024 1:00 PM EST Treatment [address] [phone] Nolberto Perez, STRATEGIC CLIENT EXECUTIVE Closed dislocation of tarsometatarsal joint, right, sequela (Primary Dx) 05/27/2024 11:00 AM EST Treatment [address] [phone] Nolberto Perez, STRATEGIC CLIENT EXECUTIVE Closed dislocation of tarsometatarsal joint, right, sequela (Primary Dx) 05/22/2024 2:32 PM EST - 05/22/2024 11:59 PM EST Hospital Encounter [facility] OB Ultrasound [address] [place] [phone] Excessive and frequent menstruation with irregular cycle; Dysmenorrhea, unspecified; Hirsutism Discharge Disposition: Home or Self Care 05/22/2024 1:00 PM EST Treatment [address] [phone] Nolberto Perez, STRATEGIC CLIENT EXECUTIVE Closed dislocation of tarsometatarsal joint, right, sequela (Primary Dx) 05/20/2024 1:00 PM EST Treatment [address] [phone] Tato Mena, STRATEGIC CLIENT EXECUTIVE Closed dislocation of tarsometatarsal joint, right, sequela (Primary Dx) 05/16/2024 1:00 PM EST Treatment [address] [phone] Nolberto Perez, STRATEGIC CLIENT EXECUTIVE Closed dislocation of tarsometatarsal joint, right, sequela (Primary Dx) 05/14/2024 1:00 PM EST Treatment [address] [phone] Nolberto Perez, STRATEGIC CLIENT EXECUTIVE Post-operative state (Primary Dx) 05/10/2024 1:00 PM EST Evaluation [address] [phone] Rickey Banda, PT Closed dislocation of tarsometatarsal joint, right, sequela (Primary Dx); Post-operative state 05/07/2024 8:45 AM EST Office Visit [facility] [address] [phone] Jesus Manuel Saenz, DPM Post-operative state (Primary Dx) 04/16/2024 9:00 AM EST Office Visit [facility] [address] [phone] Jesus Manuel Saenz, DPM Post-operative state (Primary Dx) 03/26/2024 Telephone [facility] 160 175 [facility] [place] 160 [place] [phone] Neeta Carrasco from Last 3 Months Social History Tobacco Use Types Packs/Day Years Used Date Smoking Tobacco: Never Assessed Comments Unknown Sex and Gender Information Value Date Recorded Sex Assigned at Not on file Legal Sex Female 9:43 AM EST Gender Identity Not on file Sexual Orientation Not on file Last Filed Vital Signs Vital Sign Reading Time Taken Comments Blood Pressure - - Pulse - - Temperature - - Respiratory Rate - - Oxygen Saturation - - Inhaled Oxygen Concentration - - Weight 83.9 kg (185 lb) 05/30/2024 9:32 AM EST Height 167.6 cm (5' 5.98 ) 05/30/2024 9:32 AM ES T Body Mass Index 29.87 05/30/2024 9:32 AM EST Plan of Treatment Upcoming Encounters Date Type Department Care Team (Late st Contact Info) Description 06/24/2024 12:30 PM EST Treatment [facility] 175 Radha Julio [address] [place] [phone] Rickey Banda, PT 10/01/2024 1:30 PM EDT Office Visit [facility] [address] [place] [phone] Jesus Manuel Saenz, DPM 175 [facility] 250 [place] [address] Health Maintenance Due Date Last Done Comments Cervical Cancer Screening: Pap Smear 2013 Pneumococcal Vaccine: Pediatrics (0 to 5 Years) and At-Risk Patients (6 to 64 Years) (2 of 2 - PCV) 11/22/2016 11/23/2015 DTaP,Tdap,and Td Vaccines (8 - Td or Tdap) 12/27/2016 12/27/2006, 04/12/2003, 12/30/1997, Additional history exists COVID-19 Vaccine ( season) 2024 10/20/2020, 09/29/2020 Influenza Vaccine (#1) 2024 9, 04/22/2014, 01/17/2012 Social Influencers of Health Screening 03/01/2024 Depression Screening 02/12/2025 02/13/2024 Cholesterol Screening (Lipid Panel) 02/13/2029 02/14/2024 HIB Vaccines Completed 03/06/1994, 11/07, 04/06/1993, Additional history exists IPV Vaccines Completed 12/30/1997, 02/07, 02/04/1993, Additional history exists MMR Vaccines Completed 12/30/1997, 10/04/1993 Meningococcal ACWY Vaccine Aged Out 12/27/2006 N o longer eligible based on patient's age to complete this topic Varicella Vaccines Completed 01/08/2010, 12/27/2006 HPV Vaccines Completed 01/17/2012, 09/06, 12/27/2006 Hepatitis B Vaccines Completed 04/02/2019, 07/05/1993, 02/04/1993, Additional history exists HIV Screening Completed 02/14/2024 Hepatitis C Screening Completed 02/14/2024 Hepatitis A Vaccines Aged Out No long er eligible based on patient's age to complete this topic Meningococcal B Vacine Aged Out No lo nger eligible based on patient's age to complete this topic RSV Immunization Patients Under 20 months Aged Out No longer eligible based on patient's age to complete this topic Goals Goal Patient Goal Type Associated Problems [...] met Pt will be independent with HEP Procedures Procedure Name Priority Date/Time Associated Diagnosis Comments XR FOOT 3+ VIEWS RIGHT Routine 05/30/2024 9:30 AM EST Post-operative state US PELVIS TRANSVAGINAL NON OB Routine 05/22/2024 3:24 PM EST Excessive and frequent menstruation with irregular cycle Dysmenorrhea, unspecified Hirsutism US PELVIS NON OB COMPLETE Routine 05/22/2024 3:24 PM EST Excessive and frequent menstruation with irregular cycle Dysmenorrhea, unspecified Hirsutism XR FOOT 3+ VIEWS RIGHT Routine 05/07/2024 8:41 AM EST Post-operative state XR FOOT 3+ VIEWS RIGHT Routine 04/16/2024 9:01 AM EST Post-operative state from Last 3 Months Results * XR Foot 3+ Views Right (05/30/2024 9:30 AM EST) Only the most recent of3 resultswithin the time period is included. Anatomical Region Laterality Modality Lower Extremities, Foot Right Computed Radiography Narrative 06/12/2024 7:59 PM EST Right foot 3 views weightbearing: Correction is maintained in good rectus alignment. Normal postoperative healing. us Jesus Manuel Saenz DPM IMG XR PROCEDURES Final Res ult * US Pelvis Non OB Complete (05/22/2024 3:24 PM EST) Anatomical Region Laterality Modality Body, Pelvis Ultrasound 05/22/2024 3:24 PM EST Narrative 05/22/2024 5:12 PM EST Female Pelvis ?(Signed Final 05/22/2024 05:12 pm) PATIENT INFO: ID #: ? [id number] ? : ??[birth year] (33 yrs)(F) Name: ? ERIN HAMMER ? Visit Date: 05/22/2024 03:24 pm PERFORMED BY: Attending: ?Kat Mohr MD Performed By: ? Roberta Lopez [facility] Referred By: ?DENNIS DANG M.D Ref. Address: ? [address] [place] [address] Location: ? [facility] Ultrasound (OBU) SERVICE(S) PROVIDED: US Pelvic and Transvaginal ?02459, [id number] INDICATIONS: Polycystic Ovarian Syndrome (PCOS) ? E28.2 TECHNIQUE/SCAN QUALITY: Technique: ?A transabdominal and a transvaginal scan were ? completed at today's visit Scan Quality: ?? Satisfactory CLINICAL INFORMATION: Age: ?? 33 ?G: ?1 ? P: ?1 LMP: ?? 05/07/24 ?Day Of Cycle: ?? 16 Menses: ?Regular. Hormone Treatment: ? None. HISTORY: Cholecystectomy UTERUS: Size (cm) ?L: ??8.11 ?W: ?? 5.42 ? H: ??4.77 Vol(): ?109.78 Position: ?Retroverted, retroflexed. Comment: ? Normal [...] BLADDER: Distended with regular contour. COMMENTS: Ms. Hammer is referred today for abnormal hair growth and question of PCOS. - The sonographic appearance of the ovaries may be suggestive of PCOS. Kat Mohr M.D Electronically Signed Final Report ?? 05/22/2024 05:12 pm Procedure Note Kat Mohr MD - 05/22/2024 Female Pelvis (Signed Final 05/22/2024 05:12 pm) PATIENT INFO: ID #: [id number] : [birth year] (33 yrs)(Crystal) Name: ERIN HAMMER Visit Date: 05/22/2024 03:24 pm PERFORMED BY: Attending: Kat Mohr MD Performed By: Roberta Lopez [facility] Referred By: DENNIS DANG M.D Ref. Address: [address] [place] [id number] Location: [facility] Ultrasound (OBU) SERVICE(S) PROVIDED: US Pelvic and Transvaginal 77933, [address]2030 INDICATIONS: Polycystic Ovarian Syndrome (PCOS) E28.2 TECHNIQUE/SCAN [...] BLADDER: Distended with regular contour. COMMENTS: Ms. Hammer is referred today for abnormal hair growth and question of PCOS. - The sonographic appearance of the ovaries may be suggestive of PCOS. Kat Mohr M.D Electronically Signed Final Report 05/22/2024 05:12 pm us Dennis Dang MD IMG US PROCEDURES Fin al Result * US Pelvis Transvaginal Non OB (05/22/2024 3:24 PM EST) Anatomical Region Laterality Modality Body Ultrasound 05/22/2024 3:24 PM EST Narrative 05/22/2024 5:12 PM EST Female Pelvis ?(Signed Final 05/22/2024 05:12 pm) PATIENT INFO: ID #: ? [id number] ? : ??[birth year] (33 yrs)(F) Name: ? ERIN HAMMER ? Visit Date: 05/22/2024 03:24 pm PERFORMED BY: Attending: ?Kat Mohr MD Performed By: ? Roberta Lopez RDMS Referred By: ?DENNIS DANG M.D Ref. Address: ? [address] [place] [address] Location: ? [facility] Ultrasound (OBU) SERVICE(S) PROVIDED: US Pelvic and Transvaginal ?43754, 71943 INDICATIONS: Polycystic Ovarian Syndrome (PCOS) ? E28.2 [...] ?2.92 ? x ??2.94 ? x ??2.37 ?Vol(): ??10.65 Comment: ?The ovary is located between the uterus and the ? pelvic sidewall. There are multiple small peripheral ? follicles suggestive of polycystic ovarian syndrome. RIGHT ADNEXA: Comment: ?No abnormality visualized. LEFT OVARY: Size(cm): ?2.84 ? x ??2.27 ? x ??1.44 ?Vol(): ??4.86 Comment: ?The ovary is located between the uterus and the ? pelvic sidewall. ??There are multiple small peripheral ? follicles suggestive of polycystic ovarian syndrome. LEFT ADNEXA: Comment: ?No abnormality visualized. CUL-DE-SAC: There is trace free fluid in the cul de sac. BLADDER: Distended with regular contour. COMMENTS: Ms. Hammer is referred today for abnormal hair growth and question of PCOS. - The sonographic appearance of the ovaries may be suggestive of PCOS. Kat Mohr M.D Electronically Signed Final Report ?? 05/22/2024 05:12 pm Procedure Kat Berkowitz MD - 05/22/2024 Female Pelvis (Signed Final 05/22/2024 05:12 pm) PATIENT INFO: ID #: [id number] : [birth year] (33 yrs)(F) Name: ERIN HAMMER Visit Date: 05/22/2024 03:24 pm PERFORMED BY: Attending: Kat Mohr MD Performed By: Roberta Lopez [facility] Referred By: DENNIS DANG M.D Ref. Address: [address] [place] [address] Location: [facility] Ultrasound (OBU) SERVICE(S) PROVIDED: US Pelvic and Transvaginal 16674, 10770 INDICATIONS: Polycystic Ovarian Syndrome (PCOS) E28.2 TECHNIQUE/SCAN [...] BLADDER: Distended with regular contour. COMMENTS: Ms. Hammer is referred today for abnormal hair growth and question of PCOS. - The sonographic appearance of the ovaries may be suggestive of PCOS. Kat Mohr M.D Electronically Signed Final Report 05/22/2024 05:12 pm Dennis Dang MD [facility] PROCEDURES Fin al Result from Last 3 Months Insurance MEDICAID - [place] Care Teams Rumper Relationship Specialty Start Date End Date Dennis Souza MD [address] [place] [address] ANNIE Fan [phone] PCP - General 11/08/23
--- OUTSIDE RECORDS SUMMARY | 2024-06-21 08:05 | XMS_ITS | Encounter Summary ---
Author Organization [email or web address] Address [address] [facility] [address] [place] [address] Care Team Providers Care Tangled Yarn Worker Name Role Phone Lorna Souza MD Primary Care Provide r Reason for Visit * Reason Onset Date Comments Results 05/23/2024 Encounter Details Date Type Department Care Team ([facility] st Contact Info) Description 05/23/2024 Telephone [facility] [address] [place] [address] Naty Bowens, RADHA [address] [place] [address] Results Social History Tobacco Use Types Packs/Day Years [...] encounter Miscellaneous Notes * Telephone Encounter - Naty Bowens RN - 05/24/2024 8:52 AM EST Noted. * Telephone Encounter - Naty Bowens RN - 05/23/2024 4:48 PM EST TC placed to patient [phone] in regards to below message. Patient verbalized understanding gideon she was contacted by POUNCING MACHINE OPERATOR office today and her appointment is on 07/05/24. Patient is requesting US results to be faxed to POUNCING MACHINE OPERATOR office, RN will have referral team fax results to POUNCING MACHINE OPERATOR office. Patient to f/u PRN. ----- Message from Lorna Dang MD sent at 05/23/2024 4:20 PM EST ----- Please let patient know I reviewed her US she has PCOS, I already refer her to OB please advise to f/u with them thank you documented in this encounter Plan of Treatment Upcoming Encounters Date Type Department Care Team (Late st Contact Info) Description 08/27/2024 9:15 AM EDT Office Visit [facility] [address] [place] [address] Lorna Souza MD [address] [place] [address] documented as of this encounter Visit Diagnoses Not on filedocumented in this encounter Additional Health Concerns Assessment Noted Time PHQ-9 Depression Total Score: 0 02/13/20 24 10:20 AM EDT documented as of this encounter Care Teams Tangled Yarn Worker Relationship Specialty Start Date End Date Lorna Souza MD [address] [place] [address] PCP - General Family Medicine 01/17/18 documented as of this encounter
--- OUTSIDE RECORDS SUMMARY | 2024-06-21 08:05 | XMS_ITS | Encounter Summary ---
Author Organization [facility] Address [address] [place] [address] Care Team Providers Care Braddisher Name Role Phone Lorna Souza MD Primary Care Provide r Reason for Visit * Consultation (Routine) - Authorized Specialty Diagnoses / Procedures Referred By Piyush ramírez Referred To Contact Physical Therapy Diagnoses Post-operative state Jesus Manuel Saenz DPM 175 [facility] [address] [place] [address] Phone: tel: fax: Referral ID Status Reason Start Date Expiration Date Visits Requested Visits Authorized [id number] Authorized Consult and Treat 04/16/2024 04/16/2025 20 20 Encounter Details Date Type Department Care Team (Late st Contact Info) Description 06/03/2024 1:00 PM EST Treatment [facility] [address] [phone] Nolberto Perez PTA Post-operative state (Primary Dx) Social History Tobacco Use Types Packs/Day Years Used Date Smoking Tobacco: Never Assessed Comments Unknown Sex and Gender Information Value Date Recorded Sex Assigned at Not on file Legal Sex Female 9:43 AM EST Gender Identity Not on file Sexual Orientation Not on file documented as of this encounter Progress Notes * Nolberto Perez PTA - 06/03/2024 1:00 PM EST [facility] - Outpatient PHYSICAL THERAPY DAILY TREATMENT NOTE - OP Date: 06/03/2024 Visit Number: [id number] Patient Name: Linda Hammer : 1990 Age: 33 y.o. Gender: female Diagnosis: ICD-10-CM ICD-9-CM 1. Post-operative state Z98.890 V45.89 Date of Onset/Surgery: Multiple active episodes found Referring Provider: Jesus Manuel Saenz DPM Insurance: Pay[place] / Plan[place] / Product Type: *No Product type* / Patient Identified by: Nolberto Perez PTA Language: Palestinian Medications: Current Outpatient Medications on File Prior [...] Fall risk: no Patient/Caregiver Goals: SUBJECTIVE Subjective Report:doing alittle better, but I feel my toe needs to crack Chart Reviewed: Yes Pain Right ankle clicking no sxs TREATMENT INTERVENTION: Nustep x6 min level 5 Slant board x3 Standing hamstring stretching x3 Standing knee flexion in True, 6 x 10 secs ea leg Lateral stepping with blue tband at ankles x 10 feet x [address]-did not perform Heel raises x20 on slant board Mini squats holding // bar x20 short of pain Forward step ups onto 8 n step, x20ea on ea Man resisted R ankle PF, Inv, Ev 2x 10 ea- did not perform Leg press 5 cords uni 2x10 ea Reviewed gastroc stretching in wall for [...] PM EST Treatment [facility] 175 [facility] [address] [place] [phone] Rickey Banda, PT 10/01/2024 1:30 PM EDT Office Visit [facility] 250 175 [facility] 250 [place] [phone] Jesus Manuel Saenz, DPNelda 175 [facility] [address] [place] [address] documented as of this encounter Goals Goal [...] status documented in this encounter Care Teams Braddisher Relationship Specialty Start Date End Date Lorna Souza MD 230 [facility] 1 [place] [address] PCP - General 11/08/23 documented as of this encounter
== END ==
LOC: HO.CARD 08:00
PROVIDERS: PCP Internal Medicine; Visit Provider Internal Medicine
DX: R42 Dizziness and giddiness (principal); R55 Syncope and collapse
CPT/HCPCS: 93306

== ENCOUNTER → 2024-06-21 08:03 | Outpatient (BNV) | payer MEDICAID, SELFPAY | PROVIDERS: PCP Internal Medicine; Visit Provider Internal Medicine Cardiovascular Disease | DX: R55 Syncope and collapse (principal) | CPT/HCPCS: 93306 ==

== ENCOUNTER 2024-11-18 08:06 | Outpatient (REF) | payer MEDICAID, SELFPAY ==
--- OUTSIDE RECORDS SUMMARY | 2024-11-18 08:10 | XMS_ITS ---
Author Name [facility] Organization Unknown History of Medication Use Medication Directions Dispensed Refills Start Date End Date Stat acetaminophen (TYLENOL) 325 mg tablet Take 2 Tablets by mouth every 6 hours as needed for Pain (mild to moderate pain) for up to 10 days active ibuprofen (ADVIL,MOTRIN) 800 mg tablet Take 1 Tablet by mouth every 8 hours for 30 days active ondansetron (ZOFRAN) 4 mg tablet Take 1 Tablet by mouth every 8 hours as needed for Nausea for up to 7 days active oxyCODONE (ROXICODONE) 5 mg immediate release tablet Take one tablet every 6 hours as needed for pain active Problems Problem Status Onset Date Problem Type Date of Resolution Source Dysmenorrhea, unspecified active EncounterDiagnosisAct [facility]S LEONA Hirsutism active EncounterDiagnosisAct [facility]_THSFRAN Excessive and frequent menstruation with irregular cycle active EncounterDiagnosisAct CT_ THSFRAN Encounters Encounter Type Encounter Reason Primary Diagnosis Location Date Ambulatory Excessive and frequent menstruation with irregular cycle Excessive and frequent menstruation with irregular cycle [facility] 05/22/2024 Care Team Organization Name Specialty Phone Email Start Date End Da te [facility] 06/11/2024 [facility] 05/22/2024
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
--- OUTSIDE RECORDS SUMMARY | 2024-11-18 08:10 | XMS_ITS | Clinical Summary ---
Author Organization [facility] Address [address] [place] [address] Phone Care Team Providers Care Sterile Tech Name Role Phone Lorna Souza MD Primary [...] pain) for up to 10 days Active meloxicam (MOBIC) 15 mg tablet Take 1 tablet (15 mg total) by mouth 1 (one) time each day. 30 tablet 11/01/19 25 Encounters Date Type Department Care Team Description 10/17/2024 6:59 AM EDT - 10/17/2024 11:59 PM EDT Hospital Encounter [facility] CT Scan [address] [place] [phone] Nondisplaced fracture of second metatarsal bone, right foot, initial encounter for closed fracture; Pain in right foot Discharge Disposition: Home or Self Care 10/01/2024 1:30 PM EDT Office Visit Orthopedic [facility] [address] [facility] [address] [place] [phone] Jesus Manuel Saenz, DPM Nondisplaced fracture of second metatarsal bone, right foot, initial encounter for closed fracture (Primary Dx); Pain in right foot from Last 3 Months Social History Tobacco Use Types Packs/Day Years Used Date Smoking Tobacco: Never Assessed Comments Unknown Sex and Gender Information Value Date Recorded Sex Assigned at Female 10/03/2024 2:03 PM EDT Legal Sex Female 9:43 AM EST Gender Identity Female 10/03/2024 2:03 PM EDT Sexual Orientation Straight 10/03/2024 2: 03 PM EDT Last Filed Vital Signs Vital Sign [...] 05/30/2024 9:32 AM EST Plan of Treatment Health Maintenance Due Date Last Done Comments Cervical Cancer Screening: Pap Smear 2013 Pneumococcal Vaccine: Pediatrics (0 to 5 Years) and At-Risk Patients (6 to 49 Years) (2 of 2 - PCV) 11/22/2016 11/23/2015 DTaP,Tdap,and Td Vaccines (8 - Td or Tdap) 12/27/2016 12/27/2006, 04/12/2003, 12/30/1997, Additional history exists COVID-19 Vaccine ( season) 2024 10/20/2020, 09/29/2020 Social Influencers of Health Screening 03/01/2024 Influenza Vaccine (#1) 2025 9, 04/22/2014, 01/17/2012 Depression Screening 02/12/2025 02/13/2024 Cholesterol Screening (Lipid [...] LOWER EXTREMITY WO CONTRAST RIGHT Routine 10/17/2024 7:16 AM EDT Nondisplaced fracture of second metatarsal bone, right foot, initial encounter for closed fracture Pain in right foot from Last 3 Months Results * CT Lower Extremity wo Contrast Right (10/17/2024 7:16 AM EDT) Anatomical Region Laterality Modality Lower Extremities Right Computed Tomog jennyfer 10/17/2024 11:3 4 AM EDT Impressions 10/17/2024 11:54 AM EDT No acute fracture -------- FINAL REPORT -------- Dictated By: KAMINI HARGROVE Dictated Date: 10/17/2024 11:34 ET Assigned Physician: KAMINI HARGROVE Reviewed and Electronically Signed By: KAMINI HARGROVE Signed Date: 10/17/2024 11:54 ET Workstation ID: [id number] Transcribed By: Self Edit Transcribed Date: 10/17/2024 11:34 ET Narrative 10/17/2024 11:54 AM EDT PROCEDURE: Right lower extremity CT INDICATION: Pain TECHNIQUE: Right lower extremity CT without contrast. Multi planar reformats were created and interpreted. The examination was performed utilizing dose reduction techniques. Total DLP 613 COMPARISON: No priors available. FINDINGS: Mid foot fusion hardware with dorsal plate and screw constructs traversing the 2nd and 3rd tarsometatarsal joints and screw traversing the Lisfranc ligament region between the medial cuneiform and proximal 2nd metatarsal. Hardware is intact. No acute fracture. Small corticated chronic fracture fragments noted at the lateral malleolus and along the plantar aspect of the medial midfoot. Alignment is anatomic. Mild degenerative changes at the 1st metatarsophalangeal joint. No joint effusions. No mass or fluid collection. Subcutaneous edema around the ankle. Muscles and tendons are within normal limits. Procedure Note Kamini Hargrove MD - 10/17/2024 PROCEDURE: Right lower extremity CT INDICATION: Pain TECHNIQUE: Right lower extremity CT without contrast. Multi planarreformats were created and interpreted. The examination was performedutilizing dose reduction techniques. Total DLP 613 COMPARISON: No priors available. FINDINGS: Mid foot fusion hardware with dorsal plate and screw constructs traversingthe 2nd and 3rd tarsometatarsal joints and screw traversing the Lisfrancligament region between the medial cuneiform and proximal 2nd metatarsal.Hardware is intact. No acute fracture. Small corticated chronic fracture fragments noted atthe lateral malleolus and along the plantar aspect of the medialmidfoot. Alignment is anatomic. Mild degenerative changes at the 1st metatarsophalangeal joint. No jointeffusions. No mass or fluid collection. Subcutaneous edema around the ankle. Muscles and tendons are within normal limits. IMPRESSION: No acute fracture -------- FINAL REPORT -------- Dictated By: KAMINI HARGROVE Dictated Date: 10/17/2024 11:34 ET Assigned Physician: KAMINI HARGROVE Reviewed and Electronically Signed By: KAMINI HARGROVE Signed Date: 10/17/2024 11:54 ET Workstation ID: [id number] Transcribed By: Self Edit Transcribed Date: 10/17/2024 11:34 ET Jesus Manuel Saenz DPM IMG CT PROCEDURES Final Res ult from Last 3 Months Insurance MEDICAID - [place] Care Teams Sterile Tech Relationship Specialty Start Date End Date Lorna Souza MD [address] [place] [phone] PCP - General 11/08/23
[2024-11-18 11:33] LABS: MANUAL DIFF FLAG NO
[2024-11-18 11:41] LABS: Hematocrit 39.5 % (37.0-47.0); Hemoglobin 12.7 g/dl (12.0-16.0); Imm Gran Abs Auto 0.05 X10*3/uL (0.00-0.03); Imm Gran Pct Auto 0.5 % (0.0-0.4); Lymphocytes Absolute Auto 2.2 X10*3/uL (1.2-4.9); Mean Corpuscular HGB Conc 32.2 g/dl (31.0-35.0); Mean Corpuscular Hemoglobin 28.7 pg (27.0-33.0); Mean Corpuscular Volume 89.4 fL (80.0-98.0); NRBC Abs Auto 0.000 X10*3/uL (0.0-0.012); NRBC Pct Auto 0.0 /100WBC (0.0-0.2); Platelet Count 271 X10*3/uL (160-400); Red Blood Count 4.42 X10*6/uL (4.20-5.50); White Blood Count 9.9 X10*3/uL (4.8-10.8)
[2024-11-18 12:13] LABS: Alanine Aminotransferase 18 U/L (0-31); Albumin Level 4.2 g/dL (3.5-5.0); Alkaline Phosphatase 98 U/L (39-117); Anion Gap 11 (12-20); Aspartate Amino Transferase 18 U/L (5-31); Blood Urea Nitrogen 12 mg/dL (9-16); Calcium 8.8 mg/dL (8.4-10.2); Carbon Dioxide 27 mmol/L (22-29); Chloride 108 mmol/L (96-108); Cholesterol 153 mg/dL (<200); Estimated Glomerular Filt Rate > 60; HDL Cholesterol 60 mg/dL (>40); Potassium 3.5 mmol/L (3.3-5.1); Sodium 142 mmol/L (135-145); Total Protein 6.5 g/dL (6.5-8.0); Triglycerides 100 mg/dL (<150)
[2024-11-18 12:31] LABS: HIV Num 1 0.06 S/CO (0.00-0.99); ~HepC Num1 0.41 S/CO (0.00-0.79); ~Hepatitis C Antibody Nonreactive (Nonreactive)
[2024-11-18 12:44] LABS: Hemoglobin A1C 138.0860 umol/L; Total Hemoglobin (HGBA1C) 3722.4225 umol/L
== END 2024-11-18 08:07 | disposition home or self-care (01) ==
LOC: HO.HHCL 08:06
PROVIDERS: PCP Internal Medicine; Visit Provider Internal Medicine
DX: Z00.00 Encounter for general adult medical examination without abnormal findings (principal); Z11.4 Encounter for screening for human immunodeficiency virus [HIV]; Z11.59 Encounter for screening for other viral diseases
CPT/HCPCS: 36415; 80053; 80061; 82306; 83036; 84443; 85025; 86803; 87389